=== PATIENT | male | born 1950 | race Caucasian/White ===

== ENCOUNTER 2020-11-26 22:32 | Inpatient (IN) | payer MEDICAID ==
[~2020-11-26] VITALS: Ht 180.3 cm; Wt 71.0 kg
[~2020-11-26 22:32] MED LIST: AMOX1TAB15 PO; ASPI-611 PO; HYDR-3964 PO; HYDR25TA4 PO; LEVO750T46 PO; LISI20TA28 PO; POTA10CA44 PO; SIMV20TA PO; VANC125C5 PO
[2020-11-26] MEDS ORDERED: normal saline 1000ML IV soln IVB ONE (23:10)
[2020-11-26 23:25] LABS: BASOPHILS # (AUTO) 0.1 X10'3 (0-0.2); BASOPHILS % (AUTO) 0.6 % (0-1); EOSINOPHILS # (AUTO) 0.1 X10'3 (0-0.9); EOSINOPHILS % (AUTO) 0.6 % (0-6); MONOCYTES # (AUTO) 1.4 X10'3 (0-0.9); RED CELL DISTRIBUTION WIDTH 14.4 % (11.5-14.5)
[2020-11-26 23:26] LABS: HEMATOCRIT 31.7 % (42.0-52.0); HEMOGLOBIN 10.2 g/dl (14.0-17.9); LYMPHOCYTES # (AUTO) 2.5 X10'3 (1.1-4.8); LYMPHOCYTES % (AUTO) 13.1 % (21-51); MEAN CORPUSCULAR HEMOGLOBIN 28.3 PG (27.0-31.0); MEAN CORPUSCULAR HGB CONC 32.3 g/dL (33.0-36.5); MEAN CORPUSCULAR VOLUME 87.7 FL (78-98); MEAN PLATELET VOLUME 7.8 FL (7.4-10.4); MONOCYTES % (AUTO) 7.2 % (2-12); NEUTROPHILS # (AUTO) 14.8 X10'3 (1.8-7.7); NEUTROPHILS % (AUTO) 78.5 % (42-75); PLATELET COUNT 606 X10'3 (140-440); RED BLOOD COUNT 3.61 X10'6 (4.70-6.10); WHITE BLOOD COUNT 18.8 X10'3 (4.5-11.0)
[2020-11-26] MEDS ORDERED: magnesium hydroxide 30ml (MOM) UD suspension PO PRN (23:40)
[2020-11-26] MEDS ORDERED: ondansetron/PF 4mg/2ml inj IV PRN (23:40)
[2020-11-26] MEDS ORDERED: acetaminophen 325mg tablet PO PRN (23:40)
[2020-11-26] MEDS ORDERED: mag hydrox/Alum hydrox/simeth 30ml oral suspension PO PRN (23:40)
[2020-11-27] MEDS ORDERED: diphenhydrAMINE 50 mg/ml inj IV PRN (00:50)
[2020-11-27] MEDS ORDERED: ondansetron 4mg rapidly disintigrating tab PO PRN (00:50)
[2020-11-27] MEDS ORDERED: morphine 2 MG/ML inj. syringe IV PRN ×2 (00:50)
[2020-11-27] MEDS ORDERED: bisacodyl 10mg suppository rectal RC PRN (00:50)
[2020-11-27] MEDS ORDERED: mag hydrox/Alum hydrox/simeth 30ml oral suspension PO PRN (00:50)
[2020-11-27] MEDS ORDERED: diphenhydrAMINE 25mg capsule PO PRN (00:50)
[2020-11-27] MEDS ORDERED: magnesium hydroxide 30ml (MOM) UD suspension PO PRN (00:50)
[2020-11-27] MEDS ORDERED: acetaminophen 650mg rectal suppository RC PRN (00:50)
[2020-11-27] MEDS ORDERED: ondansetron/PF 4mg/2ml inj IV PRN (00:50)
[2020-11-27] MEDS ORDERED: acetaminophen 325mg tablet PO PRN ×2 (00:50)
[2020-11-27] MEDS ORDERED: normal saline 1000ML IV soln IVB ONE (01:05)
[2020-11-27] MEDS ORDERED: morphine 2 MG/ML inj. syringe IV ONE (01:05)
--- NOTE | 2020-11-27 01:09 | NUR ---
PT COMPLAINED OF NAUSEA, GIVEN ZOFRAN. UPON REASSESSING PT HE WAS SCREAMING "NURSE! NURSE!", PT STATES HE HAS SUDDEN PAIN IN CHEST FROM STERNUM TO MID-CLAVICULAR, RADIATING TO BACK BILATERALLY. DR. GOODWIN CALLED AND FILLED IN ON PT COMPLAINT AND ON PT CONDITION. EKG PERFORMED AND SHOWED TO ED PT BLOOD DRAWN AND SENT TO LAB, VERBAL ORDER FOR NITRO, MORPHINE AND FLUIDS PUT IN FROM DR. GOODWIN.
--- NOTE | 2020-11-27 01:26 | NUR ---
PT CP CONTINUES GIVEN .4 SL NITRO AT 0117. PAIN AT 7/10 UPON GIVING. BP 156/76 GIVEN .4 SL NITRO AT 0122. PAIN AT 3/10 WHEN GIVEN BP 116/67 PT PAIN LEVEL AT 0 AT 0127. NO MORE NITRO GIVEN BP 124/79 STARTED 1L NS BOLUS
[2020-11-27 01:29] LABS: PARTIAL THROMBOPLASTIN TIME 37 SECONDS (22-32)
[2020-11-27] MEDS: normal saline 1000ml 1,000 ML IV SCH ×3 (01:29→20:00)
[2020-11-27] MEDS: nitroGLYCERIN 0.4mg SUBLingual tab SL PRN ×2 (01:29→01:35)
[2020-11-27 01:37] LABS: MAGNESIUM 1.4 MG/DL (1.5-2.4); PHOSPHORUS 3.7 MG/DL (2.3-4.5); TROPONIN I < 0.04 NG/ML (0.0-0.05)
--- NOTE | 2020-11-27 01:43 | NUR ---
PT STATES NO LONGER IN PAIN
[2020-11-27 02:43] VITALS: BP 132/67
[2020-11-27] MEDS ORDERED: magnesium Cl slow-release 64mg tablet PO PRN (02:45)
[2020-11-27] MEDS ORDERED: potassium Cl 20 mEq SR tablet PO PRN ×2 (02:45)
[2020-11-27] MEDS ORDERED: magnesium 4gm in 100ml NS 100 ML IV PRN (02:45)
[2020-11-27] MEDS ORDERED: potassium Cl 40MEQ/1/2NS 520ml 520 ML IV PRN (02:45)
[2020-11-27 03:03] LABS: POTASSIUM 4.6 MMOL/L (3.5-5.1)
[2020-11-27 06:00] VITALS: BP 115/64
--- NOTE | 2020-11-27 06:14 | NUR ---
OK TO GIVE INFORMATION TO SISTER JAE [phone]
--- NOTE | 2020-11-27 06:18 | NUR ---
Patient in room PCU 3010. I have received report from MIN Zuñiga and had the opportunity to ask questions and assume patient care.
--- NOTE | 2020-11-27 06:21 | NUR ---
Patient in room PCU 3010. I have received report from MIN Zuñiga and had the opportunity to ask questions and assume patient care.
--- NOTE | 2020-11-27 07:50 | NUR ---
Paged Maxx carrillo trop PAGER ID: [phone] MESSAGE: Re Monty Block 3010; 6 hour trop level 0.22 up from <0.04 at 0100. [facility] Beba [phone]
[2020-11-27] MEDS ORDERED: AMOX1TAB15 PO (07:59)
[2020-11-27] MEDS ORDERED: LEVO500T89 PO (07:59)
[2020-11-27] MEDS: docusate sod 100mg capsule PO SCH ×2 (08:00→20:00)
[2020-11-27] MEDS ORDERED: piperacillin/tazo 4.5gm/100ml 100 ML IV SCH (08:00)
[2020-11-27] MEDS: nitroGLYCERIN 0.1mg/hour patch TD SCH (08:11)
[2020-11-27] MEDS: pantoprazole 40 MG vial IV SCH (08:11)
[2020-11-27] MEDS: metoprolol tartrate 25mg tablet PO SCH (08:13)
[2020-11-27] MEDS: heparin, porcine 5000 units/ml vial SQ SCH ×2 (08:22→20:14)
[2020-11-27] MEDS: K and/or MAG REPLACEMENT MC SCH ×2 (08:28→20:00)
[2020-11-27 09:38] LABS: ANION GAP 12 (8-16); BLOOD UREA NITROGEN 32 MG/DL (7-18); BUN/CREATININE RATIO 4.9 (5.4-32.0); CALCIUM 7.6 MG/DL (8.5-10.1); CHLORIDE 116 MMOL/L (99-107); CREATININE 6.57 MG/DL (0.60-1.10); GLUCOSE 102 MG/DL (70-104); POTASSIUM 5.4 MMOL/L (3.5-5.1); SODIUM 147 MMOL/L (135-145); TOTAL CARBON DIOXIDE 18.8 MMOL/L (24-32); eGFR 8 ML/MIN
--- NOTE | 2020-11-27 10:10 | NUR ---
D/C Trop Troponins discontinued per Dr. Lilly
[2020-11-27 11:00] VITALS: BP 123/63
[2020-11-27 11:29] LABS: CLARITY,URINE SLIGHTLY CLOUDY (Clear); COLOR,URINE YELLOW (Yellow); GLUCOSE, URINE NEGATIVE (Neg); KETONES,URINE NEGATIVE (Neg); LEUKOCYTE ESTERASE ,URINE NEGATIVE (Neg); NITRITES, URINE NEGATIVE (Neg); OCCULT BLOOD,URINE NEGATIVE (Neg); PROTEIN,URINE 30 mg/dl (Neg); UROBILINOGEN,URINE 0.2 E.U/dL (0.2-1.0)
[2020-11-27 11:41] LABS: UA COLLECTION TYPE URINAL
[2020-11-27 11:42] LABS: HYALINE CASTS 0-3 /LPF (NEGATIVE); MUCUS STRANDS FEW /LPF (Neg); SQUAMOUS EPITHELIAL CELL,UR FEW /LPF (FEW)
[2020-11-27 11:43] LABS: BACTERIA,URINE 1+ /HPF (Neg); RBC,URINE 0-2 /HPF (0-2)
[2020-11-27 11:45] LABS: COARSE GRANULAR CAST 0-3 /LPF (NEGATIVE)
[2020-11-27 15:00] VITALS: BP 137/56
[2020-11-27 18:00] VITALS: BP 120/51
--- NOTE | 2020-11-27 18:05 | NUR ---
Patient in room PCU 3010. I have received report from Beatrice COPELAND and had the opportunity to ask questions and assume patient care.
--- NOTE | 2020-11-27 18:09 | NUR ---
Orientee documentation: I have reviewed and agree with all interventions, assessments performed and documented by MIN Yoder.
--- NOTE | 2020-11-27 18:29 | NUR ---
Problems reprioritized. Patient report given, questions answered & plan of care reviewed with MIN De Luna.
[2020-11-27] MEDS: lactobacillus rhamnosus 10,000 MMU CELLS/CAPSULE PO SCH (20:01)
[2020-11-27] MEDS: piperacillin/tazo 3.375gm/50ml 50 ML IV SCH (20:01)
--- NOTE | 2020-11-27 20:30 | NUR ---
Patient feeling isolated and anxious and concerned about his health. He reported he has not been sleeping well and is quite anxious. I spent 30 minutes with him discussing his concerns and offering encouragement. At one point he began to cry. I encouraged him to reach out to loved ones and to voice his concerns to the MD that rounds tomorrow. He mood improved by the time I left and he was grateful for the time spent listening.
[2020-11-27 22:00] VITALS: BP 135/55
[2020-11-27] MEDS: temazepam 15mg capsule PO PRN (22:40)
[2020-11-28 02:00] VITALS: BP 110/55
--- NOTE | 2020-11-28 04:19 | NUR ---
Patient was offered a sleep aid and enjoyed and restful night.
--- NOTE | 2020-11-28 06:06 | NUR ---
Problems reprioritized. Patient report given, questions answered & plan of care reviewed with Nydia COPELAND.
--- NOTE | 2020-11-28 06:32 | NUR ---
Patient in room PCU 3010. I have received report from Annamarie COPELAND and had the opportunity to ask questions and assume patient care.
[2020-11-28 07:00] VITALS: BP 108/56
[2020-11-28 07:06] LABS: BASOPHILS # (AUTO) 0.1 X10'3 (0-0.2); BASOPHILS % (AUTO) 0.4 % (0-1); EOSINOPHILS # (AUTO) 0.5 X10'3 (0-0.9); EOSINOPHILS % (AUTO) 4.4 % (0-6); HEMATOCRIT 25.9 % (42.0-52.0); HEMOGLOBIN 8.4 g/dl (14.0-17.9); LYMPHOCYTES # (AUTO) 1.4 X10'3 (1.1-4.8); MEAN CORPUSCULAR HGB CONC 32.5 g/dL (33.0-36.5); MEAN CORPUSCULAR VOLUME 89.2 FL (78-98); MEAN PLATELET VOLUME 7.5 FL (7.4-10.4); MONOCYTES # (AUTO) 0.9 X10'3 (0-0.9); MONOCYTES % (AUTO) 7.5 % (2-12); NEUTROPHILS # (AUTO) 9.4 X10'3 (1.8-7.7); NEUTROPHILS % (AUTO) 76.7 % (42-75); PLATELET COUNT 421 X10'3 (140-440); RED CELL DISTRIBUTION WIDTH 14.5 % (11.5-14.5); WHITE BLOOD COUNT 12.3 X10'3 (4.5-11.0)
[2020-11-28 07:37] LABS: ALANINE AMINOTRANSFERASE 30 U/L (12-78); ALBUMIN 1.7 G/DL (3.4-5.0); ALBUMIN/GLOBULIN RATIO 0.5 (1.1-1.5); ALKALINE PHOSPHATASE 205 IU/L (46-116); ANION GAP 16 (8-16); ASPARTATE AMINO TRANSFERASE 25 U/L (10-37); BILIRUBIN,TOTAL 0.4 MG/DL (0.1-1.0); BLOOD UREA NITROGEN 32 MG/DL (7-18); BUN/CREATININE RATIO 4.4 (5.4-32.0); CALCIUM 7.7 MG/DL (8.5-10.1); CHLORIDE 115 MMOL/L (99-107); CHOL/HDL RATIO 3.4 (0.00-4.99); CHOLESTEROL 112 MG/DL (0-200); CREATININE 7.34 MG/DL (0.60-1.10); GLUCOSE 87 MG/DL (70-104); HDL CHOLESTEROL 33 MG/DL (35-60); LDL CHOLESTEROL 56 MG/DL (50-100); MAGNESIUM 1.4 MG/DL (1.5-2.4); POTASSIUM 4.9 MMOL/L (3.5-5.1); SODIUM 147 MMOL/L (135-145); TOTAL CARBON DIOXIDE 16.3 MMOL/L (24-32); TOTAL PROTEIN 5.2 G/DL (6.4-8.2); TRIGLYCERIDES 135 MG/DL (20-135); eGFR 7 ML/MIN
[2020-11-28] MEDS: docusate sod 100mg capsule PO SCH (08:00)
[2020-11-28] MEDS: K and/or MAG REPLACEMENT MC SCH ×2 (08:00→19:36)
[2020-11-28] MEDS: metoprolol tartrate 25mg tablet PO SCH (08:22)
[2020-11-28] MEDS: piperacillin/tazo 3.375gm/50ml 50 ML IV SCH ×2 (08:22→19:34)
[2020-11-28] MEDS: pantoprazole 40 MG vial IV SCH (08:22)
[2020-11-28] MEDS: heparin, porcine 5000 units/ml vial SQ SCH ×2 (08:23→19:35)
[2020-11-28] MEDS: nitroGLYCERIN 0.1mg/hour patch TD SCH (08:24)
[2020-11-28] MEDS: HYDROcodone/acetaminophen 5mg/325mg tablet PO PRN ×2 (08:33→20:51)
[2020-11-28] MEDS: lactobacillus rhamnosus 10,000 MMU CELLS/CAPSULE PO SCH ×2 (08:37→19:35)
--- NOTE | 2020-11-28 09:05 | NUR ---
Dr. Lilly at bedside with nurse and patient. MD was made aware of Tele being DCD and would like to continue the Tele. Tele 10 applied to pt, New orders to have a wound consult, DC stool softeners. We will continue to monitor.
--- NOTE | 2020-11-28 09:27 | NUR ---
Malnutrition consult: Pt reports 24-33 lb wt loss with decreased appetite per malnutrition risk screen with RN. Pt recently discharged from [facility] 11/21 and had a bed scaled weight of 73.4 kg (taken 11/20), current bed scaled wt is 82 kg. No apparent wt loss however unlikely that pt +8.6 kg in 6 days. Pt initially with poor PO intake at prior admit while on liquid diet however once diet was advanced to solid food pt with 75-100% PO intake from 11/12-11/21. Pt currently on a regular diet and eating well with 100% PO intake first two meals down to 50% PO intake at third meal. Pt with no documented edema or decrease in muscle strength. Pt currently lacks a minimum of two criteria for malnutrition. Will continue to follow. Addendum: 11/28/20 at [address] Amended: Links added.
--- NOTE | 2020-11-28 09:52 | NUR ---
Md aware of Pt MANAGER INDUSTRIAL and trop levels. No new orders at this time. We will continue to monitor.
[2020-11-28 11:00] VITALS: BP 105/51
[2020-11-28] MEDS ORDERED: vancomycin 250MG/10ML UD oral solution 10ML BOTTLE PO SCH (14:09)
[2020-11-28 15:00] VITALS: BP 116/57
[2020-11-28 15:35] LABS: TOTAL PROTEIN,URINE RANDOM 49.1 MG/DL
[2020-11-28 15:44] LABS: CLARITY,URINE SLIGHTLY CLOUDY (Clear); COLOR,URINE STRAW (Yellow); GLUCOSE, URINE NEGATIVE (Neg); KETONES,URINE NEGATIVE (Neg); LEUKOCYTE ESTERASE ,URINE NEGATIVE (Neg); NITRITES, URINE NEGATIVE (Neg); OCCULT BLOOD,URINE TRACE-INTACT (Neg); PROTEIN,URINE TRACE mg/dl (Neg); UROBILINOGEN,URINE 0.2 E.U/dL (0.2-1.0)
[2020-11-28 15:53] LABS: UA COLLECTION TYPE NON-SPECIFIED
[2020-11-28 15:54] LABS: RBC,URINE 0-2 /HPF (0-2); WBC,URINE 0-4 /HPF (0-4)
[2020-11-28 15:59] LABS: BACTERIA,URINE NONE SEEN /HPF (Neg); SQUAMOUS EPITHELIAL CELL,UR NONE SEEN /LPF (FEW)
[2020-11-28] MEDS: normal saline 1000ml 1,000 ML IV SCH ×2 (16:50→19:35)
[2020-11-28 17:46] LABS: UA EOSINOPHILS FEW EOS /HPF
[2020-11-28 18:00] VITALS: BP 113/55
--- NOTE | 2020-11-28 18:05 | NUR ---
Patient in room PCU 3010. I have received report from Nydia COPELAND and had the opportunity to ask questions and assume patient care.
--- NOTE | 2020-11-28 18:26 | NUR ---
Patient in room PCU 3010. I have received report from MIN Stafford and had the opportunity to ask questions and assume patient care.
--- NOTE | 2020-11-28 18:29 | NUR ---
Problems reprioritized. Patient report given, questions answered & plan of care reviewed with Annamarie COPELAND.
[2020-11-28] MEDS: vancomycin 125mg/5ml ORAL solution 5ml UD bottle PO SCH (19:33)
[2020-11-28] MEDS: famotidine/PF 10 mg/ml inj IV SCH (19:34)
[2020-11-28 22:00] VITALS: BP 122/55
--- NOTE | 2020-11-28 22:06 | NUR ---
Patient reporting difficulty coping with his current illness, frustration about length of illness, his weight loss, isolation, CDiff, lack of taste and issues that seem to keep developing. He expressed feeling depressed and that things are not looking better for him and he reported "wanting to jump out of the window" during his previous hospitalization a couple weeks ago. He reported he does not feel suicidal at this time but is "low". He also stated that he does not want to take "psychoactive" drugs to treat his "bad attitude". I will put in social sciences department chair consult.
[2020-11-29] MEDS: vancomycin 125mg/5ml ORAL solution 5ml UD bottle PO SCH ×4 (01:25→23:36)
[2020-11-29 02:00] VITALS: BP 116/57
[2020-11-29] MEDS: normal saline 1000ml 1,000 ML IV SCH (02:50)
[2020-11-29 06:00] VITALS: BP 127/60
--- NOTE | 2020-11-29 06:08 | NUR ---
Patient in room PCU 3010. I have received report from Beatrice and had the opportunity to ask questions and assume patient care.
--- NOTE | 2020-11-29 06:10 | NUR ---
Orientee documentation: I have reviewed and agree with all interventions, assessments performed and documented by Rosario COPELAND
--- NOTE | 2020-11-29 06:10 | NUR ---
Problems reprioritized. Patient report given, questions answered & plan of care reviewed with MIN Barron.
--- NOTE | 2020-11-29 06:21 | NUR ---
Patient in room PCU 3010. I have received report from MIN Ponce and MIN De Luna and had the opportunity to ask questions and assume patient care.
[2020-11-29 07:30] LABS: BASOPHILS # (AUTO) 0.1 X10'3 (0-0.2); BASOPHILS % (AUTO) 0.9 % (0-1); EOSINOPHILS # (AUTO) 0.6 X10'3 (0-0.9); HEMATOCRIT 25.3 % (42.0-52.0); HEMOGLOBIN 8.2 g/dl (14.0-17.9); LYMPHOCYTES # (AUTO) 1.9 X10'3 (1.1-4.8); LYMPHOCYTES % (AUTO) 17.4 % (21-51); MEAN CORPUSCULAR HEMOGLOBIN 29.2 PG (27.0-31.0); MEAN CORPUSCULAR HGB CONC 32.5 g/dL (33.0-36.5); MEAN CORPUSCULAR VOLUME 89.8 FL (78-98); MEAN PLATELET VOLUME 8.1 FL (7.4-10.4); MONOCYTES # (AUTO) 0.8 X10'3 (0-0.9); MONOCYTES % (AUTO) 7.7 % (2-12); NEUTROPHILS # (AUTO) 7.3 X10'3 (1.8-7.7); PLATELET COUNT 355 X10'3 (140-440); RED BLOOD COUNT 2.81 X10'6 (4.70-6.10); RED CELL DISTRIBUTION WIDTH 14.8 % (11.5-14.5); WHITE BLOOD COUNT 10.7 X10'3 (4.5-11.0)
[2020-11-29 07:40] LABS: ALANINE AMINOTRANSFERASE 27 U/L (12-78); ALBUMIN 1.6 G/DL (3.4-5.0); ALBUMIN/GLOBULIN RATIO 0.5 (1.1-1.5); ALKALINE PHOSPHATASE 173 IU/L (46-116); ANION GAP 15 (8-16); ASPARTATE AMINO TRANSFERASE 19 U/L (10-37); BILIRUBIN,TOTAL 0.3 MG/DL (0.1-1.0); BLOOD UREA NITROGEN 35 MG/DL (7-18); BUN/CREATININE RATIO 4.3 (5.4-32.0); CALCIUM 7.5 MG/DL (8.5-10.1); CHLORIDE 116 MMOL/L (99-107); CREATININE 8.05 MG/DL (0.60-1.10); GLUCOSE 78 MG/DL (70-104); POTASSIUM 4.8 MMOL/L (3.5-5.1); SODIUM 145 MMOL/L (135-145); TOTAL PROTEIN 5.1 G/DL (6.4-8.2); eGFR 7 ML/MIN
[2020-11-29 07:41] LABS: TOTAL CARBON DIOXIDE 14.4 MMOL/L (24-32)
[2020-11-29] MEDS: K and/or MAG REPLACEMENT MC SCH ×2 (08:00→20:00)
--- NOTE | 2020-11-29 08:03 | NUR ---
Received critical CO2 value of 14.4. Notified Dr. Lilly via page: PAGER ID: [phone] MESSAGE: Kavon Kimble 3010 CRIT CO2 14.4. Any orders? Beatrice [phone]
[2020-11-29] MEDS: HYDROcodone/acetaminophen 5mg/325mg tablet PO PRN ×2 (08:25→19:59)
[2020-11-29] MEDS: lactobacillus rhamnosus 10,000 MMU CELLS/CAPSULE PO SCH ×2 (08:26→23:38)
[2020-11-29] MEDS: metoprolol tartrate 25mg tablet PO SCH (08:26)
[2020-11-29] MEDS: piperacillin/tazo 3.375gm/50ml 50 ML IV SCH ×2 (08:27→23:36)
[2020-11-29] MEDS: nitroGLYCERIN 0.1mg/hour patch TD SCH (08:27)
[2020-11-29] MEDS: heparin, porcine 5000 units/ml vial SQ SCH ×2 (08:28→23:26)
[2020-11-29] MEDS: famotidine/PF 10 mg/ml inj IV SCH ×2 (08:28→23:28)
--- NOTE | 2020-11-29 08:49 | NUR ---
Sent message to pharmacy Please send Bicarb Fluids for pt. Thank you Nydia
[2020-11-29] MEDS: sodium bicarbonate (8.4%) inj. 150 MEQ in dextrose 5%-water 1,000 ML IV SCH ×2 (09:15→23:51)
[2020-11-29] MEDS ORDERED: heparin 1,000 units/ml 10ml inj IV ONE (09:30)
[2020-11-29] MEDS ORDERED: albumin (human) 25% 100ml IV 100 ML IV PRN (09:30)
[2020-11-29] MEDS ORDERED: heparin 1,000unit/ml 10ml vial 10 ML IV ONE (09:30)
[2020-11-29] MEDS ORDERED: EPOETIN ALFA-EPBX 20,000 UNIT/ML 1 ML MDV IV ONE (09:30)
[2020-11-29] MEDS ORDERED: heparin 1,000 units/ml 10ml inj HE ONE ×2 (09:35)
[2020-11-29 11:00] VITALS: BP 131/57
[2020-11-29] MEDS: JUVEN Smoothie Arginine/Glut./Ca2+Bmb (Juven 19.3pkt) 240ml cup PO SCH ×2 (13:15→18:00)
--- NOTE | 2020-11-29 13:51 | NUR ---
Problems reprioritized. Patient report given, questions answered & plan of care reviewed with MIN Bartholomew.
--- NOTE | 2020-11-29 14:17 | NUR ---
Wound care consult: Per [facility] notes pt with a full thickness healing surgical abdominal wound with a small open area. Pt currently on a regular diet with average 75-100% PO intake however down to 25% PO intake x 2 most recent meals. Pt to start receiving Marcello smoothie to assist with wound healing per [facility] RN. Will continue to follow closely and monitor need for further nutrition intervention. Addendum: 11/29/20 at [address] Amended: Links added.
[2020-11-29] MEDS ORDERED: LIDOcaine 1%/PF 5ML 10 MG/ML VIAL ONE (17:23)
[2020-11-29] MEDS ORDERED: heparin 1,000unit/ml 10ml vial 10 ML ONE (17:51)
[2020-11-29 18:00] VITALS: BP 132/56
--- NOTE | 2020-11-29 18:00 | NUR ---
Patient in room PCU 3010. I have received report from Latrice and had the opportunity to ask questions and assume patient care.
--- NOTE | 2020-11-29 19:19 | NUR ---
pT IN ROOM WITH DIALYSIS AFTER CATHETER PLACEMENT, WILL BE 2 1//2 HRS.
[2020-11-29 22:00] VITALS: BP 123/69
[2020-11-30] VITALS (7 sets, daily range): BP systolic 119–144; BP diastolic 55–63
[2020-11-30] MEDS: vancomycin 125mg/5ml ORAL solution 5ml UD bottle PO SCH ×4 (03:14→20:41)
--- NOTE | 2020-11-30 06:21 | NUR ---
Problems reprioritized. Patient report given, questions answered & plan of care reviewed with Agata-MIN.
[2020-11-30] MEDS: K and/or MAG REPLACEMENT MC SCH ×2 (08:00→20:00)
[2020-11-30] MEDS: sodium bicarbonate (8.4%) inj. 150 MEQ in dextrose 5%-water 1,000 ML IV SCH (08:32)
[2020-11-30] MEDS: nitroGLYCERIN 0.1mg/hour patch TD SCH (08:33)
[2020-11-30] MEDS: famotidine/PF 10 mg/ml inj IV SCH (08:35)
[2020-11-30] MEDS: lactobacillus rhamnosus 10,000 MMU CELLS/CAPSULE PO SCH ×2 (08:35→20:41)
[2020-11-30] MEDS: metoprolol tartrate 25mg tablet PO SCH (08:35)
[2020-11-30] MEDS: piperacillin/tazo 3.375gm/50ml 50 ML IV SCH ×2 (08:35→20:40)
[2020-11-30] MEDS: heparin, porcine 5000 units/ml vial SQ SCH ×2 (08:36→20:41)
[2020-11-30] MEDS: JUVEN Smoothie Arginine/Glut./Ca2+Bmb (Juven 19.3pkt) 240ml cup PO SCH ×3 (08:36→18:00)
[2020-11-30 09:55] LABS: BASOPHILS # (AUTO) 0.1 X10'3 (0-0.2); BASOPHILS % (AUTO) 0.8 % (0-1); EOSINOPHILS # (AUTO) 0.3 X10'3 (0-0.9); EOSINOPHILS % (AUTO) 2.6 % (0-6); HEMOGLOBIN 7.9 g/dl (14.0-17.9); LYMPHOCYTES # (AUTO) 1.7 X10'3 (1.1-4.8); LYMPHOCYTES % (AUTO) 12.5 % (21-51); MEAN CORPUSCULAR HEMOGLOBIN 28.4 PG (27.0-31.0); MEAN CORPUSCULAR HGB CONC 32.8 g/dL (33.0-36.5); MEAN CORPUSCULAR VOLUME 86.6 FL (78-98); MEAN PLATELET VOLUME 7.9 FL (7.4-10.4); MONOCYTES # (AUTO) 0.8 X10'3 (0-0.9); NEUTROPHILS # (AUTO) 10.5 X10'3 (1.8-7.7); NEUTROPHILS % (AUTO) 78.1 % (42-75); PLATELET COUNT 299 X10'3 (140-440); RED BLOOD COUNT 2.78 X10'6 (4.70-6.10); RED CELL DISTRIBUTION WIDTH 14.6 % (11.5-14.5); WHITE BLOOD COUNT 13.5 X10'3 (4.5-11.0)
[2020-11-30 10:05] LABS: ALANINE AMINOTRANSFERASE 20 U/L (12-78); ALBUMIN 1.6 G/DL (3.4-5.0); ALBUMIN/GLOBULIN RATIO 0.5 (1.1-1.5); ALKALINE PHOSPHATASE 158 IU/L (46-116); ANION GAP 10 (8-16); ASPARTATE AMINO TRANSFERASE 20 U/L (10-37); BILIRUBIN,TOTAL 0.3 MG/DL (0.1-1.0); BLOOD UREA NITROGEN 22 MG/DL (7-18); BUN/CREATININE RATIO 3.8 (5.4-32.0); CHLORIDE 108 MMOL/L (99-107); CREATININE 5.74 MG/DL (0.60-1.10); GLUCOSE 110 MG/DL (70-104); POTASSIUM 3.8 MMOL/L (3.5-5.1); SODIUM 145 MMOL/L (135-145); TOTAL CARBON DIOXIDE 26.6 MMOL/L (24-32); TOTAL PROTEIN 4.9 G/DL (6.4-8.2); eGFR 10 ML/MIN
[2020-11-30] MEDS ORDERED: EPOETIN ALFA-EPBX 20,000 UNIT/ML 1 ML MDV SQ ONE (10:35)
[2020-11-30 11:24] LABS: FERRITIN 489 NG/ML (26-388)
[2020-11-30 11:27] LABS: % IRON SATURATION 26 % (11-46); IRON 39 UG/DL (53-167); TOTAL IRON BINDING CAPACITY 149 UG/DL (259-388)
--- NOTE | 2020-11-30 18:15 | NUR ---
Patient in room PCU 3010. I have received report from MIN Hill and had the opportunity to ask questions and assume patient care.
[2020-11-30] MEDS: famotidine 20mg tablet PO SCH (20:42)
[2020-12-01 02:00] VITALS: BP 130/59
[2020-12-01] MEDS: vancomycin 125mg/5ml ORAL solution 5ml UD bottle PO SCH ×4 (02:18→20:02)
--- NOTE | 2020-12-01 06:30 | NUR ---
Problems reprioritized. Patient report given, questions answered & plan of care reviewed with MIN Maldonado.
[2020-12-01 06:35] VITALS: BP 130/52
[2020-12-01 06:53] LABS: BASOPHILS # (AUTO) 0.1 X10'3 (0-0.2); BASOPHILS % (AUTO) 0.9 % (0-1); EOSINOPHILS # (AUTO) 0.5 X10'3 (0-0.9); EOSINOPHILS % (AUTO) 4.6 % (0-6); HEMATOCRIT 24.2 % (42.0-52.0); HEMOGLOBIN 8.1 g/dl (14.0-17.9); LYMPHOCYTES # (AUTO) 2.3 X10'3 (1.1-4.8); LYMPHOCYTES % (AUTO) 20.2 % (21-51); MEAN CORPUSCULAR HGB CONC 33.5 g/dL (33.0-36.5); MEAN CORPUSCULAR VOLUME 86.8 FL (78-98); MEAN PLATELET VOLUME 8.5 FL (7.4-10.4); MONOCYTES # (AUTO) 1.1 X10'3 (0-0.9); MONOCYTES % (AUTO) 9.8 % (2-12); NEUTROPHILS # (AUTO) 7.2 X10'3 (1.8-7.7); NEUTROPHILS % (AUTO) 64.5 % (42-75); PLATELET COUNT 258 X10'3 (140-440); RED BLOOD COUNT 2.79 X10'6 (4.70-6.10); RED CELL DISTRIBUTION WIDTH 14.6 % (11.5-14.5); WHITE BLOOD COUNT 11.2 X10'3 (4.5-11.0)
[2020-12-01 07:07] LABS: ALANINE AMINOTRANSFERASE 17 U/L (12-78); ALBUMIN 1.6 G/DL (3.4-5.0); ALBUMIN/GLOBULIN RATIO 0.5 (1.1-1.5); ALKALINE PHOSPHATASE 149 IU/L (46-116); ANION GAP 10 (8-16); ASPARTATE AMINO TRANSFERASE 16 U/L (10-37); BILIRUBIN,TOTAL 0.3 MG/DL (0.1-1.0); BLOOD UREA NITROGEN 29 MG/DL (7-18); BUN/CREATININE RATIO 4.5 (5.4-32.0); CALCIUM 7.2 MG/DL (8.5-10.1); CHLORIDE 108 MMOL/L (99-107); CREATININE 6.43 MG/DL (0.60-1.10); GLUCOSE 88 MG/DL (70-104); POTASSIUM 3.6 MMOL/L (3.5-5.1); SODIUM 144 MMOL/L (135-145); TOTAL CARBON DIOXIDE 25.7 MMOL/L (24-32); eGFR 9 ML/MIN
[2020-12-01] MEDS: K and/or MAG REPLACEMENT MC SCH ×2 (08:00→20:00)
[2020-12-01] MEDS: JUVEN Smoothie Arginine/Glut./Ca2+Bmb (Juven 19.3pkt) 240ml cup PO SCH ×3 (08:00→18:00)
[2020-12-01] MEDS ORDERED: heparin 1,000unit/ml 10ml vial 10 ML IV ONE (10:00)
[2020-12-01] MEDS: metoprolol tartrate 25mg tablet PO SCH (10:02)
[2020-12-01] MEDS: famotidine 20mg tablet PO SCH ×2 (10:02→20:02)
[2020-12-01] MEDS: lactobacillus rhamnosus 10,000 MMU CELLS/CAPSULE PO SCH ×2 (10:02→20:02)
[2020-12-01] MEDS: piperacillin/tazo 3.375gm/50ml 50 ML IV SCH ×2 (10:03→20:03)
[2020-12-01] MEDS: nitroGLYCERIN 0.1mg/hour patch TD SCH (10:04)
[2020-12-01] MEDS: heparin, porcine 5000 units/ml vial SQ SCH ×2 (10:05→20:02)
[2020-12-01] MEDS ORDERED: heparin 1,000 units/ml 10ml inj HE ONE ×2 (10:05)
[2020-12-01 11:00] VITALS: BP 149/67
--- NOTE | 2020-12-01 14:03 | NUR ---
Initial: Pt admit DX [facility] w/ ATN s/p first HD yesterday, intra-abdominal abscess, c.diff, and metabolic acidosis per EMR. Noted pt has full thickness healing prior abdomen wound receiving marcello TIDWM per [facility] RN. PO fluctuates ~50-75% avg regular diet up to 100% at times w/ 75% avg Marcello smoothie TIDWM partially meeting needs. LBM 11/30. Noted Mg 1.4 11/28 last check; HAILEY d/w RN regarding recheck if MD Agreeable given HD and c.diff. Will continue to monitor for additional protein/kcal needs this admit. Rec: 1. continue regular diet per MD; encourage PO 2. Marcello smoothie TIDWM per WOC 3. bowel care per Rx; consider phos binder w/ meals on HD pending further serum Phos results 4. wts w/ HD Addendum: 12/01/20 at [address] Amended: Links added.
[2020-12-01] MEDS: HYDROcodone/acetaminophen 10/325mg tab PO PRN (14:22)
[2020-12-01 15:00] VITALS: BP 118/51
--- NOTE | 2020-12-01 15:30 | NUR ---
MEDICATED WITH ONE [facility]CO PRIOR TO DIALYSIS . PATIENT ENCOUNTERED PAIN IN LOWER BACK AT START OF TX; HOWEVER, C/O PAIN FLEETING.NOW RESTING QUIETLY NO C/O DIALYSIS CONTINUES. HOB UP CALL LIGHT IN REACH. Addendum: 12/01/20 at 1842 by Hedy Max RN Amended: Links added.
[2020-12-01 18:00] VITALS: BP 104/59
--- NOTE | 2020-12-01 18:05 | NUR ---
Patient in room PCU 3010. I have received report from MIN Gonzalez and had the opportunity to ask questions and assume patient care.
[2020-12-01 22:00] VITALS: BP 129/66
[2020-12-02 02:00] VITALS: BP_SYST 133; BP_SYST 96; BP_DIAS 65; BP_DIAS 66
[2020-12-02] MEDS: vancomycin 125mg/5ml ORAL solution 5ml UD bottle PO SCH ×4 (02:12→19:45)
[2020-12-02 06:00] VITALS: BP 149/67
--- NOTE | 2020-12-02 06:20 | NUR ---
Patient in room PCU 3010. I have received report from bill hinson and had the opportunity to ask questions and assume patient care.
--- NOTE | 2020-12-02 06:23 | NUR ---
Problems reprioritized. Patient report given, questions answered & plan of care reviewed with MIN Deshpande.
[2020-12-02 06:42] LABS: BASOPHILS # (AUTO) 0.1 X10'3 (0-0.2); BASOPHILS % (AUTO) 1.3 % (0-1); EOSINOPHILS # (AUTO) 0.5 X10'3 (0-0.9); EOSINOPHILS % (AUTO) 4.4 % (0-6); HEMATOCRIT 26.1 % (42.0-52.0); HEMOGLOBIN 8.8 g/dl (14.0-17.9); LYMPHOCYTES # (AUTO) 2.6 X10'3 (1.1-4.8); LYMPHOCYTES % (AUTO) 23.3 % (21-51); MEAN CORPUSCULAR HEMOGLOBIN 29.2 PG (27.0-31.0); MEAN CORPUSCULAR HGB CONC 33.8 g/dL (33.0-36.5); MEAN CORPUSCULAR VOLUME 86.4 FL (78-98); MEAN PLATELET VOLUME 8.3 FL (7.4-10.4); NEUTROPHILS # (AUTO) 6.8 X10'3 (1.8-7.7); PLATELET COUNT 247 X10'3 (140-440); RED BLOOD COUNT 3.02 X10'6 (4.70-6.10); RED CELL DISTRIBUTION WIDTH 14.6 % (11.5-14.5)
[2020-12-02 07:05] LABS: ALANINE AMINOTRANSFERASE 19 U/L (12-78); ALBUMIN 1.7 G/DL (3.4-5.0); ALBUMIN/GLOBULIN RATIO 0.5 (1.1-1.5); ALKALINE PHOSPHATASE 154 IU/L (46-116); ANION GAP 9 (8-16); ASPARTATE AMINO TRANSFERASE 22 U/L (10-37); BILIRUBIN,TOTAL 0.3 MG/DL (0.1-1.0); BLOOD UREA NITROGEN 18 MG/DL (7-18); BUN/CREATININE RATIO 3.6 (5.4-32.0); CALCIUM 7.2 MG/DL (8.5-10.1); CHLORIDE 106 MMOL/L (99-107); CREATININE 4.96 MG/DL (0.60-1.10); GLUCOSE 84 MG/DL (70-104); POTASSIUM 3.7 MMOL/L (3.5-5.1); SODIUM 142 MMOL/L (135-145); TOTAL CARBON DIOXIDE 27.2 MMOL/L (24-32); TOTAL PROTEIN 5.3 G/DL (6.4-8.2); eGFR 12 ML/MIN
[2020-12-02] MEDS: K and/or MAG REPLACEMENT MC SCH ×2 (08:00→20:00)
[2020-12-02] MEDS: nitroGLYCERIN 0.1mg/hour patch TD SCH (08:00)
[2020-12-02] MEDS: lactobacillus rhamnosus 10,000 MMU CELLS/CAPSULE PO SCH ×2 (08:40→19:45)
[2020-12-02] MEDS: piperacillin/tazo 3.375gm/50ml 50 ML IV SCH ×2 (08:40→19:46)
[2020-12-02] MEDS: famotidine 20mg tablet PO SCH ×2 (08:40→19:45)
[2020-12-02] MEDS: metoprolol tartrate 25mg tablet PO SCH (08:42)
[2020-12-02] MEDS: JUVEN Smoothie Arginine/Glut./Ca2+Bmb (Juven 19.3pkt) 240ml cup PO SCH ×3 (08:42→18:53)
[2020-12-02] MEDS: heparin, porcine 5000 units/ml vial SQ SCH ×2 (08:51→19:46)
[2020-12-02 11:00] VITALS: BP 135/62
[2020-12-02 15:00] VITALS: BP 130/60
[2020-12-02 18:00] VITALS: BP 147/64
--- NOTE | 2020-12-02 18:27 | NUR ---
Problems reprioritized. Patient report given, questions answered & plan of care reviewed with bill hacth.
--- NOTE | 2020-12-02 18:30 | NUR ---
Patient in room PCU 3010. I have received report from MIN Deshpande and had the opportunity to ask questions and assume patient care. Patient in no apparent distress, eating pizza. I will continue to monitor.
[2020-12-02 22:00] VITALS: BP 157/60
[2020-12-03 02:00] VITALS: BP 150/64
[2020-12-03] MEDS: vancomycin 125mg/5ml ORAL solution 5ml UD bottle PO SCH ×4 (02:07→20:40)
[2020-12-03 06:00] VITALS: BP 135/60
--- NOTE | 2020-12-03 06:20 | NUR ---
Problems reprioritized. Patient report given, questions answered & plan of care reviewed with MIN Cruz.
[2020-12-03] MEDS ORDERED: heparin 1,000 units/ml 10ml inj HE ONE (08:00)
[2020-12-03] MEDS ORDERED: albumin (human) 25% 100ml IV 100 ML IV PRN (08:00)
[2020-12-03] MEDS ORDERED: heparin 1,000 units/ml 10ml inj IV ONE (08:00)
[2020-12-03] MEDS: K and/or MAG REPLACEMENT MC SCH ×2 (08:00→20:00)
[2020-12-03] MEDS: metoprolol tartrate 25mg tablet PO SCH (08:00)
[2020-12-03] MEDS ORDERED: heparin 1,000unit/ml 10ml vial 10 ML IV ONE (08:00)
[2020-12-03] MEDS: lactobacillus rhamnosus 10,000 MMU CELLS/CAPSULE PO SCH ×2 (08:00→20:40)
[2020-12-03] MEDS: heparin, porcine 5000 units/ml vial SQ SCH ×2 (08:00→20:42)
[2020-12-03] MEDS: nitroGLYCERIN 0.1mg/hour patch TD SCH (08:00)
[2020-12-03] MEDS: JUVEN Smoothie Arginine/Glut./Ca2+Bmb (Juven 19.3pkt) 240ml cup PO SCH ×4 (08:00→21:06)
[2020-12-03] MEDS: famotidine 20mg tablet PO SCH ×2 (08:00→20:40)
[2020-12-03] MEDS: piperacillin/tazo 3.375gm/50ml 50 ML IV SCH ×2 (08:00→20:41)
[2020-12-03] MEDS ORDERED: EPOETIN ALFA-EPBX 20,000 UNIT/ML 1 ML MDV IV ONE (08:00)
[2020-12-03] MEDS: heparin 1,000 units/ml 10ml inj HE ONE ×2 (10:05→13:51)
[2020-12-03] MEDS: HYDROcodone/acetaminophen 10/325mg tab PO PRN (10:10)
[2020-12-03 10:47] LABS: ALBUMIN 1.7 G/DL (3.4-5.0); ANION GAP 13 (8-16); BLOOD UREA NITROGEN 24 MG/DL (7-18); BUN/CREATININE RATIO 4.3 (5.4-32.0); CALCIUM 7.3 MG/DL (8.5-10.1); CHLORIDE 109 MMOL/L (99-107); CREATININE 5.56 MG/DL (0.60-1.10); GLUCOSE 107 MG/DL (70-104); POTASSIUM 3.8 MMOL/L (3.5-5.1); SODIUM 148 MMOL/L (135-145); TOTAL CARBON DIOXIDE 25.9 MMOL/L (24-32); eGFR 10 ML/MIN
[2020-12-03 11:00] VITALS: BP 116/59
[2020-12-03 11:43] LABS: BASOPHILS # (AUTO) 0.1 X10'3 (0-0.2); BASOPHILS % (AUTO) 0.7 % (0-1); EOSINOPHILS # (AUTO) 0.2 X10'3 (0-0.9); EOSINOPHILS % (AUTO) 1.2 % (0-6); HEMATOCRIT 27.5 % (42.0-52.0); HEMOGLOBIN 9.1 g/dl (14.0-17.9); LYMPHOCYTES # (AUTO) 1.3 X10'3 (1.1-4.8); LYMPHOCYTES % (AUTO) 7.2 % (21-51); MEAN CORPUSCULAR HEMOGLOBIN 28.6 PG (27.0-31.0); MEAN CORPUSCULAR VOLUME 86.5 FL (78-98); MONOCYTES # (AUTO) 0.9 X10'3 (0-0.9); MONOCYTES % (AUTO) 5.1 % (2-12); NEUTROPHILS # (AUTO) 15.6 X10'3 (1.8-7.7); NEUTROPHILS % (AUTO) 85.8 % (42-75); PLATELET COUNT 267 X10'3 (140-440); RED BLOOD COUNT 3.18 X10'6 (4.70-6.10); RED CELL DISTRIBUTION WIDTH 14.8 % (11.5-14.5); WHITE BLOOD COUNT 18.2 X10'3 (4.5-11.0)
[2020-12-03 15:00] VITALS: BP 91/71
[2020-12-03 18:00] VITALS: BP 159/69
[2020-12-03 22:00] VITALS: BP 166/78
[2020-12-04] MEDS: vancomycin 125mg/5ml ORAL solution 5ml UD bottle PO SCH ×4 (01:44→20:43)
[2020-12-04 02:00] VITALS: BP 159/71
[2020-12-04 06:00] VITALS: BP 153/58
[2020-12-04 07:15] LABS: BASOPHILS # (AUTO) 0.1 X10'3 (0-0.2); BASOPHILS % (AUTO) 1.4 % (0-1); EOSINOPHILS # (AUTO) 0.6 X10'3 (0-0.9); EOSINOPHILS % (AUTO) 5.5 % (0-6); HEMATOCRIT 28.6 % (42.0-52.0); HEMOGLOBIN 9.4 g/dl (14.0-17.9); LYMPHOCYTES # (AUTO) 2.6 X10'3 (1.1-4.8); MEAN CORPUSCULAR HEMOGLOBIN 28.7 PG (27.0-31.0); MEAN CORPUSCULAR VOLUME 86.9 FL (78-98); MEAN PLATELET VOLUME 8.8 FL (7.4-10.4); MONOCYTES # (AUTO) 1.2 X10'3 (0-0.9); MONOCYTES % (AUTO) 11.3 % (2-12); NEUTROPHILS % (AUTO) 56.8 % (42-75); PLATELET COUNT 246 X10'3 (140-440); RED BLOOD COUNT 3.29 X10'6 (4.70-6.10); WHITE BLOOD COUNT 10.5 X10'3 (4.5-11.0)
[2020-12-04] MEDS: piperacillin/tazo 3.375gm/50ml 50 ML IV SCH ×2 (07:17→20:43)
[2020-12-04] MEDS: heparin, porcine 5000 units/ml vial SQ SCH ×2 (07:18→20:44)
[2020-12-04] MEDS: lactobacillus rhamnosus 10,000 MMU CELLS/CAPSULE PO SCH ×2 (07:18→20:43)
[2020-12-04] MEDS: famotidine 20mg tablet PO SCH ×2 (07:18→20:43)
[2020-12-04] MEDS: metoprolol tartrate 25mg tablet PO SCH (07:18)
[2020-12-04] MEDS: nitroGLYCERIN 0.1mg/hour patch TD SCH (07:22)
[2020-12-04 07:29] LABS: ALBUMIN 1.8 G/DL (3.4-5.0); ANION GAP 14 (8-16); BLOOD UREA NITROGEN 15 MG/DL (7-18); BUN/CREATININE RATIO 3.3 (5.4-32.0); CALCIUM 7.6 MG/DL (8.5-10.1); CHLORIDE 108 MMOL/L (99-107); CREATININE 4.54 MG/DL (0.60-1.10); GLUCOSE 87 MG/DL (70-104); SODIUM 146 MMOL/L (135-145); TOTAL CARBON DIOXIDE 24.5 MMOL/L (24-32); eGFR 13 ML/MIN
[2020-12-04] MEDS: K and/or MAG REPLACEMENT MC SCH ×2 (08:00→20:00)
[2020-12-04 11:00] VITALS: BP 135/67
[2020-12-04] MEDS: JUVEN Smoothie Arginine/Glut./Ca2+Bmb (Juven 19.3pkt) 240ml cup PO SCH ×2 (13:26→18:00)
[2020-12-04 15:00] VITALS: BP 145/67
[2020-12-04 18:00] VITALS: BP 145/67
[2020-12-04] MEDS: temazepam 15mg capsule PO PRN (21:35)
[2020-12-04 22:00] VITALS: BP 155/74
[2020-12-05] MEDS: vancomycin 125mg/5ml ORAL solution 5ml UD bottle PO SCH ×4 (00:59→20:38)
[2020-12-05 02:00] VITALS: BP 157/75
[2020-12-05 06:00] VITALS: BP 155/65
[2020-12-05] MEDS: piperacillin/tazo 3.375gm/50ml 50 ML IV SCH ×2 (07:35→20:37)
[2020-12-05] MEDS: famotidine 20mg tablet PO SCH ×2 (07:37→20:38)
[2020-12-05] MEDS: heparin, porcine 5000 units/ml vial SQ SCH ×2 (07:37→20:39)
[2020-12-05] MEDS: metoprolol tartrate 25mg tablet PO SCH (07:37)
[2020-12-05] MEDS: lactobacillus rhamnosus 10,000 MMU CELLS/CAPSULE PO SCH ×2 (07:37→20:39)
[2020-12-05] MEDS: nitroGLYCERIN 0.1mg/hour patch TD SCH (07:38)
[2020-12-05] MEDS ORDERED: heparin 1,000unit/ml 10ml vial 10 ML IV ONE (08:00)
[2020-12-05] MEDS ORDERED: EPOETIN ALFA-EPBX 20,000 UNIT/ML 1 ML MDV IV ONE (08:00)
[2020-12-05] MEDS: K and/or MAG REPLACEMENT MC SCH ×2 (08:00→20:00)
[2020-12-05] MEDS ORDERED: normal saline 1000ml 250 ML IV PRN (08:00)
[2020-12-05] MEDS ORDERED: heparin 1,000 units/ml 10ml inj HE ONE ×2 (08:00)
[2020-12-05] MEDS: HYDROcodone/acetaminophen 5mg/325mg tablet PO PRN (08:24)
[2020-12-05] MEDS: JUVEN Smoothie Arginine/Glut./Ca2+Bmb (Juven 19.3pkt) 240ml cup PO SCH ×3 (08:45→18:00)
[2020-12-05 11:00] VITALS: BP 120/68
[2020-12-05 15:00] VITALS: BP 146/62
[2020-12-05 18:00] VITALS: BP 155/72
[2020-12-05] MEDS: diatr meglu/diatrizoate 30ml oral sol.-(3 dose) bottle PO SCH (20:59)
[2020-12-05] MEDS: temazepam 15mg capsule PO PRN (21:26)
[2020-12-05 22:00] VITALS: BP 146/81
[2020-12-06 02:00] VITALS: BP 146/67
[2020-12-06] MEDS: vancomycin 125mg/5ml ORAL solution 5ml UD bottle PO SCH ×4 (02:23→20:30)
--- NOTE | 2020-12-06 06:06 | NUR ---
Patient in room PCU 3010. I have received report from Enrique COPELAND and had the opportunity to ask questions and assume patient care.
[2020-12-06 07:00] VITALS: BP 129/72
[2020-12-06] MEDS: diatr meglu/diatrizoate 30ml oral sol.-(3 dose) bottle PO SCH ×2 (07:41→21:00)
[2020-12-06] MEDS: piperacillin/tazo 3.375gm/50ml 50 ML IV SCH ×3 (07:46→20:30)
[2020-12-06] MEDS: nitroGLYCERIN 0.1mg/hour patch TD SCH (07:46)
[2020-12-06] MEDS: metoprolol tartrate 25mg tablet PO SCH (07:46)
[2020-12-06] MEDS: lactobacillus rhamnosus 10,000 MMU CELLS/CAPSULE PO SCH ×2 (07:46→20:28)
[2020-12-06] MEDS: heparin, porcine 5000 units/ml vial SQ SCH ×2 (07:47→20:29)
[2020-12-06] MEDS: famotidine 20mg tablet PO SCH ×2 (07:47→20:32)
[2020-12-06] MEDS: K and/or MAG REPLACEMENT MC SCH ×2 (08:00→20:00)
[2020-12-06] MEDS: JUVEN Smoothie Arginine/Glut./Ca2+Bmb (Juven 19.3pkt) 240ml cup PO SCH ×3 (08:00→18:00)
[2020-12-06 08:05] LABS: EOSINOPHILS # (AUTO) 0.5 X10'3 (0-0.9); EOSINOPHILS % (AUTO) 4.4 % (0-6); LYMPHOCYTES # (AUTO) 2.3 X10'3 (1.1-4.8); MEAN PLATELET VOLUME 8.4 FL (7.4-10.4); MONOCYTES # (AUTO) 1.2 X10'3 (0-0.9); RED BLOOD COUNT 3.28 X10'6 (4.70-6.10)
[2020-12-06 08:07] LABS: BASOPHILS # (AUTO) 0.2 X10'3 (0-0.2); BASOPHILS % (AUTO) 1.8 % (0-1); HEMATOCRIT 28.4 % (42.0-52.0); HEMOGLOBIN 9.4 g/dl (14.0-17.9); MEAN CORPUSCULAR HEMOGLOBIN 28.7 PG (27.0-31.0); MEAN CORPUSCULAR HGB CONC 33.1 g/dL (33.0-36.5); MEAN CORPUSCULAR VOLUME 86.7 FL (78-98); MONOCYTES % (AUTO) 11.6 % (2-12); NEUTROPHILS # (AUTO) 6.4 X10'3 (1.8-7.7); NEUTROPHILS % (AUTO) 60.2 % (42-75); PLATELET COUNT 258 X10'3 (140-440); RED CELL DISTRIBUTION WIDTH 14.9 % (11.5-14.5); WHITE BLOOD COUNT 10.7 X10'3 (4.5-11.0)
[2020-12-06 08:17] LABS: ALBUMIN 1.8 G/DL (3.4-5.0); ANION GAP 10 (8-16); BLOOD UREA NITROGEN 15 MG/DL (7-18); BUN/CREATININE RATIO 3.8 (5.4-32.0); CALCIUM 7.8 MG/DL (8.5-10.1); CHLORIDE 107 MMOL/L (99-107); CREATININE 3.93 MG/DL (0.60-1.10); GLUCOSE 82 MG/DL (70-104); POTASSIUM 4.1 MMOL/L (3.5-5.1); SODIUM 143 MMOL/L (135-145); TOTAL CARBON DIOXIDE 26.2 MMOL/L (24-32); eGFR 15 ML/MIN
--- NOTE | 2020-12-06 09:54 | NUR ---
Reassessment: Pt continues on HD. PO intake continues to improve with average 75-100% though mostly 100% since 12/02. Pt with mostly 100% PO intake of Marcello smoothie TID as well. Pt meeting estimated nutrient needs at this time. LBM 12/04. Pt reports stools are formed per MD note. No further nutrition intervention implemented at this time. Will continue to follow. Rec: 1. Continue regular diet per MD 2. Marcello smoothie TIDWM per WOC 3. Consider phos binder wtih meals on HD pending further serum Phos results 4. Bowel care per rx 5. Scaled weights with HD Addendum: 12/06/20 at [address] Amended: Links added.
--- NOTE | 2020-12-06 09:55 | NUR ---
Patient doen at CT in wheel chair.
--- NOTE | 2020-12-06 10:29 | NUR ---
Patient back in bed resting. CT complete and IV fluids running. Pt wanting to eat sadie
[2020-12-06 11:00] VITALS: BP 131/68
[2020-12-06 15:00] VITALS: BP 133/66
[2020-12-06 18:00] VITALS: BP 146/62
--- NOTE | 2020-12-06 18:02 | NUR ---
Problems reprioritized. Patient report given, questions answered & plan of care reviewed with Trenton khan.
--- NOTE | 2020-12-06 18:08 | NUR ---
Problems reprioritized. Patient report given, questions answered & plan of care reviewed with Rosario COPELAND.
--- NOTE | 2020-12-06 18:08 | NUR ---
Patient in room PCU 3010. I have received report from Amber. COPELAND and had the opportunity to ask questions and assume patient care.
[2020-12-06 22:00] VITALS: BP 147/71
[2020-12-07] MEDS: vancomycin 125mg/5ml ORAL solution 5ml UD bottle PO SCH ×4 (01:59→19:40)
[2020-12-07 02:00] VITALS: BP 133/57
--- NOTE | 2020-12-07 06:16 | NUR ---
Problems reprioritized. Patient report given, questions answered & plan of care reviewed with MIN Wagner.
--- NOTE | 2020-12-07 06:17 | NUR ---
Patient in room PCU 3010. I have received report from Rosario COPELAND and had the opportunity to ask questions and assume patient care.
[2020-12-07 07:00] VITALS: BP 133/57
[2020-12-07] MEDS: famotidine 20mg tablet PO SCH ×2 (07:58→19:41)
[2020-12-07] MEDS: metoprolol tartrate 25mg tablet PO SCH (07:58)
[2020-12-07] MEDS: nitroGLYCERIN 0.1mg/hour patch TD SCH (07:58)
[2020-12-07] MEDS: lactobacillus rhamnosus 10,000 MMU CELLS/CAPSULE PO SCH ×2 (07:58→19:41)
[2020-12-07] MEDS: piperacillin/tazo 3.375gm/50ml 50 ML IV SCH ×2 (07:59→19:40)
[2020-12-07] MEDS: heparin, porcine 5000 units/ml vial SQ SCH ×2 (07:59→19:42)
[2020-12-07] MEDS ORDERED: heparin 1,000unit/ml 10ml vial 10 ML IV ONE (08:00)
[2020-12-07] MEDS ORDERED: EPOETIN ALFA-EPBX 20,000 UNIT/ML 1 ML MDV IV ONE (08:00)
[2020-12-07] MEDS: JUVEN Smoothie Arginine/Glut./Ca2+Bmb (Juven 19.3pkt) 240ml cup PO SCH ×3 (08:00→18:00)
[2020-12-07] MEDS ORDERED: normal saline 1000ml 250 ML IV PRN (08:00)
[2020-12-07] MEDS: K and/or MAG REPLACEMENT MC SCH ×2 (08:00→19:48)
[2020-12-07] MEDS ORDERED: heparin 1,000 units/ml 10ml inj HE ONE ×2 (08:00)
[2020-12-07] MEDS: HYDROcodone/acetaminophen 10/325mg tab PO PRN ×2 (10:13→16:23)
[2020-12-07 11:00] VITALS: BP 108/59
[2020-12-07 11:17] LABS: ALANINE AMINOTRANSFERASE 20 U/L (12-78); ALBUMIN 1.9 G/DL (3.4-5.0); ALBUMIN/GLOBULIN RATIO 0.5 (1.1-1.5); ALKALINE PHOSPHATASE 163 IU/L (46-116); ANION GAP 10 (8-16); ASPARTATE AMINO TRANSFERASE 14 U/L (10-37); BILIRUBIN,TOTAL 0.3 MG/DL (0.1-1.0); BLOOD UREA NITROGEN 21 MG/DL (7-18); BUN/CREATININE RATIO 4.1 (5.4-32.0); CALCIUM 7.8 MG/DL (8.5-10.1); CHLORIDE 108 MMOL/L (99-107); CREATININE 5.17 MG/DL (0.60-1.10); GLUCOSE 126 MG/DL (70-104); POTASSIUM 4.2 MMOL/L (3.5-5.1); SODIUM 143 MMOL/L (135-145); TOTAL CARBON DIOXIDE 24.8 MMOL/L (24-32); TOTAL PROTEIN 5.9 G/DL (6.4-8.2); eGFR 11 ML/MIN
[2020-12-07 11:19] LABS: BASOPHILS # (AUTO) 0.1 X10'3 (0-0.2); EOSINOPHILS # (AUTO) 0.4 X10'3 (0-0.9); EOSINOPHILS % (AUTO) 4.2 % (0-6); HEMATOCRIT 28.6 % (42.0-52.0); HEMOGLOBIN 9.4 g/dl (14.0-17.9); LYMPHOCYTES % (AUTO) 19.8 % (21-51); MEAN CORPUSCULAR HEMOGLOBIN 28.7 PG (27.0-31.0); MEAN CORPUSCULAR HGB CONC 32.9 g/dL (33.0-36.5); MEAN CORPUSCULAR VOLUME 87.2 FL (78-98); MEAN PLATELET VOLUME 8.4 FL (7.4-10.4); MONOCYTES # (AUTO) 1.2 X10'3 (0-0.9); MONOCYTES % (AUTO) 11.6 % (2-12); NEUTROPHILS # (AUTO) 6.4 X10'3 (1.8-7.7); NEUTROPHILS % (AUTO) 63.4 % (42-75); PLATELET COUNT 290 X10'3 (140-440); RED BLOOD COUNT 3.28 X10'6 (4.70-6.10); RED CELL DISTRIBUTION WIDTH 14.9 % (11.5-14.5); WHITE BLOOD COUNT 10.1 X10'3 (4.5-11.0)
--- NOTE | 2020-12-07 11:33 | NUR ---
Dr. Moreland at bedside with patient and nurse. New order is a 24hr urine collection, TDC placement wednesday per urine collection and then home. Consent for TDC is in front chart for wednesday. Pt was talked to and understands what was being said.We will continue to monitor.
[2020-12-07 15:00] VITALS: BP 100/62
[2020-12-07 18:00] VITALS: BP 142/62
--- NOTE | 2020-12-07 18:08 | NUR ---
Patient in room PCU 3010. I have received report from MIN Wagner and had the opportunity to ask questions and assume patient care.
--- NOTE | 2020-12-07 18:08 | NUR ---
Problems reprioritized. Patient report given, questions answered & plan of care reviewed with Rosario COPELAND.
[2020-12-07 22:00] VITALS: BP 138/57
[2020-12-08] MEDS: vancomycin 125mg/5ml ORAL solution 5ml UD bottle PO SCH ×4 (01:52→20:10)
[2020-12-08 02:00] VITALS: BP 134/59
[2020-12-08 06:00] VITALS: BP 123/60
--- NOTE | 2020-12-08 06:38 | NUR ---
Problems reprioritized. Patient report given, questions answered & plan of care reviewed with MIN Deshpande.
[2020-12-08 06:58] LABS: BASOPHILS # (AUTO) 0.1 X10'3 (0-0.2); BASOPHILS % (AUTO) 1.3 % (0-1); EOSINOPHILS # (AUTO) 0.5 X10'3 (0-0.9); EOSINOPHILS % (AUTO) 5.6 % (0-6); HEMATOCRIT 29.3 % (42.0-52.0); HEMOGLOBIN 9.6 g/dl (14.0-17.9); LYMPHOCYTES # (AUTO) 2.3 X10'3 (1.1-4.8); LYMPHOCYTES % (AUTO) 27.4 % (21-51); MEAN CORPUSCULAR HEMOGLOBIN 28.7 PG (27.0-31.0); MEAN CORPUSCULAR HGB CONC 32.8 g/dL (33.0-36.5); MEAN CORPUSCULAR VOLUME 87.4 FL (78-98); MEAN PLATELET VOLUME 8.4 FL (7.4-10.4); MONOCYTES # (AUTO) 0.9 X10'3 (0-0.9); MONOCYTES % (AUTO) 10.8 % (2-12); NEUTROPHILS # (AUTO) 4.6 X10'3 (1.8-7.7); NEUTROPHILS % (AUTO) 54.9 % (42-75); PLATELET COUNT 281 X10'3 (140-440); RED BLOOD COUNT 3.35 X10'6 (4.70-6.10); RED CELL DISTRIBUTION WIDTH 15.2 % (11.5-14.5); WHITE BLOOD COUNT 8.4 X10'3 (4.5-11.0)
[2020-12-08 07:17] LABS: ALANINE AMINOTRANSFERASE 21 U/L (12-78); ALBUMIN 1.8 G/DL (3.4-5.0); ALBUMIN/GLOBULIN RATIO 0.4 (1.1-1.5); ALKALINE PHOSPHATASE 151 IU/L (46-116); ANION GAP 9 (8-16); ASPARTATE AMINO TRANSFERASE 20 U/L (10-37); BILIRUBIN,TOTAL 0.3 MG/DL (0.1-1.0); BLOOD UREA NITROGEN 11 MG/DL (7-18); BUN/CREATININE RATIO 3.1 (5.4-32.0); CHLORIDE 105 MMOL/L (99-107); CREATININE 3.59 MG/DL (0.60-1.10); GLUCOSE 89 MG/DL (70-104); MAGNESIUM 1.6 MG/DL (1.5-2.4); PHOSPHORUS 3.6 MG/DL (2.3-4.5); POTASSIUM 4.1 MMOL/L (3.5-5.1); SODIUM 141 MMOL/L (135-145); TOTAL CARBON DIOXIDE 26.8 MMOL/L (24-32); TOTAL PROTEIN 5.9 G/DL (6.4-8.2); eGFR 17 ML/MIN
[2020-12-08] MEDS: K and/or MAG REPLACEMENT MC SCH ×2 (08:00→19:54)
[2020-12-08] MEDS: JUVEN Smoothie Arginine/Glut./Ca2+Bmb (Juven 19.3pkt) 240ml cup PO SCH ×3 (08:00→18:00)
[2020-12-08] MEDS: heparin, porcine 5000 units/ml vial SQ SCH ×2 (08:00→20:10)
[2020-12-08] MEDS: nitroGLYCERIN 0.1mg/hour patch TD SCH (08:00)
[2020-12-08] MEDS: piperacillin/tazo 3.375gm/50ml 50 ML IV SCH ×2 (09:20→20:10)
[2020-12-08] MEDS: famotidine 20mg tablet PO SCH ×2 (09:21→20:10)
[2020-12-08] MEDS: lactobacillus rhamnosus 10,000 MMU CELLS/CAPSULE PO SCH ×2 (09:21→20:18)
[2020-12-08] MEDS: metoprolol tartrate 25mg tablet PO SCH (09:25)
[2020-12-08 11:00] VITALS: BP 133/59
[2020-12-08 12:13] LABS: UREA NITROGEN 24HR,URINE 0.6 GM/24HR (7-20)
[2020-12-08 14:48] LABS: HBSAG SCREEN Negative (Negative); HEP B CORE AB, TOT Negative (Negative)
[2020-12-08] MEDS ORDERED: EPOETIN ALFA-EPBX 20,000 UNIT/ML 1 ML MDV IV ONE (14:55)
[2020-12-08] MEDS ORDERED: normal saline 1000ml 250 ML IV PRN (14:55)
[2020-12-08] MEDS ORDERED: normal saline 1000ml 100 ML IV PRN (14:55)
[2020-12-08 15:00] VITALS: BP 128/60
[2020-12-08] MEDS ORDERED: heparin 1,000 units/ml 10ml inj HE ONE (15:00)
[2020-12-08 18:00] VITALS: BP 161/52
--- NOTE | 2020-12-08 18:20 | NUR ---
Problems reprioritized. Patient report given, questions answered & plan of care reviewed with MIN WAGNER.
--- NOTE | 2020-12-08 18:24 | NUR ---
Patient in room PCU 3010. I have received report from froilan khan and had the opportunity to ask questions and assume patient care.
[2020-12-08 22:00] VITALS: BP 119/60
--- NOTE | 2020-12-08 22:11 | NUR ---
would care on abdominal site was completed at 2100
--- NOTE | 2020-12-08 22:11 | NUR ---
wound care was completed at 2100
[2020-12-08] MEDS: HYDROcodone/acetaminophen 10/325mg tab PO PRN (23:27)
--- NOTE | 2020-12-09 00:43 | NUR ---
had urinal by patient to keep track of voids, pt kept forgetting about using the urinal but let rn know how many times he voided
[2020-12-09 02:00] VITALS: BP 103/50
[2020-12-09] MEDS: vancomycin 125mg/5ml ORAL solution 5ml UD bottle PO SCH ×3 (02:22→14:00)
--- NOTE | 2020-12-09 06:20 | NUR ---
Patient in room PCU 3010. I have received report from bill byrd and had the opportunity to ask questions and assume patient care.
--- NOTE | 2020-12-09 06:20 | NUR ---
Problems reprioritized. Patient report given, questions answered & plan of care reviewed with Charlee COPELAND.
[2020-12-09 07:27] LABS: BASOPHILS # (AUTO) 0.1 X10'3 (0-0.2); BASOPHILS % (AUTO) 1.1 % (0-1); EOSINOPHILS # (AUTO) 0.6 X10'3 (0-0.9); HEMATOCRIT 27.7 % (42.0-52.0); HEMOGLOBIN 9.1 g/dl (14.0-17.9); LYMPHOCYTES # (AUTO) 1.9 X10'3 (1.1-4.8); LYMPHOCYTES % (AUTO) 20.5 % (21-51); MEAN CORPUSCULAR VOLUME 87.8 FL (78-98); MEAN PLATELET VOLUME 8.3 FL (7.4-10.4); MONOCYTES % (AUTO) 11.2 % (2-12); NEUTROPHILS # (AUTO) 5.7 X10'3 (1.8-7.7); NEUTROPHILS % (AUTO) 61.2 % (42-75); PLATELET COUNT 292 X10'3 (140-440); RED BLOOD COUNT 3.16 X10'6 (4.70-6.10); RED CELL DISTRIBUTION WIDTH 15.9 % (11.5-14.5); WHITE BLOOD COUNT 9.4 X10'3 (4.5-11.0)
[2020-12-09] MEDS: K and/or MAG REPLACEMENT MC SCH (08:00)
[2020-12-09] MEDS: heparin, porcine 5000 units/ml vial SQ SCH (08:00)
[2020-12-09] MEDS: piperacillin/tazo 3.375gm/50ml 50 ML IV SCH (08:00)
[2020-12-09] MEDS: JUVEN Smoothie Arginine/Glut./Ca2+Bmb (Juven 19.3pkt) 240ml cup PO SCH (08:00)
[2020-12-09] MEDS: nitroGLYCERIN 0.1mg/hour patch TD SCH (08:00)
[2020-12-09 08:10] LABS: ALANINE AMINOTRANSFERASE 26 U/L (12-78); ALBUMIN 1.8 G/DL (3.4-5.0); ALBUMIN/GLOBULIN RATIO 0.5 (1.1-1.5); ALKALINE PHOSPHATASE 142 IU/L (46-116); ANION GAP 10 (8-16); ASPARTATE AMINO TRANSFERASE 17 U/L (10-37); BILIRUBIN,TOTAL 0.3 MG/DL (0.1-1.0); BLOOD UREA NITROGEN 15 MG/DL (7-18); BUN/CREATININE RATIO 3.2 (5.4-32.0); CALCIUM 7.7 MG/DL (8.5-10.1); CHLORIDE 107 MMOL/L (99-107); CREATININE 4.65 MG/DL (0.60-1.10); GLUCOSE 82 MG/DL (70-104); MAGNESIUM 1.5 MG/DL (1.5-2.4); PHOSPHORUS 3.8 MG/DL (2.3-4.5); POTASSIUM 3.9 MMOL/L (3.5-5.1); SODIUM 142 MMOL/L (135-145); TOTAL CARBON DIOXIDE 25.5 MMOL/L (24-32); TOTAL PROTEIN 5.8 G/DL (6.4-8.2); eGFR 13 ML/MIN
[2020-12-09] MEDS: famotidine 20mg tablet PO SCH (08:22)
[2020-12-09] MEDS: lactobacillus rhamnosus 10,000 MMU CELLS/CAPSULE PO SCH (08:22)
[2020-12-09 08:29] VITALS: BP_SYST 140
[2020-12-09] MEDS: metoprolol tartrate 25mg tablet PO SCH (08:29)
[2020-12-09] MEDS ORDERED: heparin 1,000unit/ml 10ml vial 10 ML ONE (08:38)
[2020-12-09] MEDS ORDERED: fentaNYL/PF 50MCG/1 ML 2ML syringe ONE (08:38)
[2020-12-09] MEDS ORDERED: LIDOcaine 1%/PF 5ML 10 MG/ML VIAL ONE (08:38)
[2020-12-09] MEDS ORDERED: midazolam 1 mg/ML 2ml injection ONE (08:38)
[2020-12-09] MEDS: HYDROcodone/acetaminophen 10/325mg tab PO PRN (08:54)
[2020-12-09] MEDS ORDERED: heparin 1,000 units/ml 10ml inj HE ONE ×2 (12:00)
[2020-12-09] MEDS ORDERED: heparin 1,000unit/ml 10ml vial 10 ML IV ONE (12:00)
[2020-12-09] MEDS ORDERED: EPOETIN ALFA-EPBX 20,000 UNIT/ML 1 ML MDV IV ONE (12:00)
[2020-12-09] MEDS ORDERED: LACT1CAP26 PO (12:40)
[2020-12-09] MEDS ORDERED: FAMO20TA8 PO (12:40)
[2020-12-09] MEDS ORDERED: VANC250C12 PO ×2 (12:50)
--- NOTE | 2020-12-09 16:30 | NUR ---
reviewed all discharge instructions,including f/u with pmd,dr. fair and dialysis scheduled for 12/12 @3:30 @ [facility]. , directions and phone # provided. While confirming prescriptions with loy martinez, wi codi issue arose with cost of vanco po( 3,000) w/o preauthorization.Harmony ,with case management contacted,who contacted prescriber Dr. Fair who lowered dose from 250 to 125 po q6,which he felt was the reason for needing preauthorization. Harmony contacted loy martinez with change,dose changed on dc instructions.Bilat forearm S.L s dc'd both sites clear, pt dc'd home via w/c with all belongings
[2020-12-10] MEDS ORDERED: VANC125C11 PO (17:31)
--- NOTE | 2020-12-11 11:30 | NUR ---
CASE MANAGEMENT DISCHARGE FOLLOW UP: Spoke with pt via telephone. Reports that he's "still here," glad to be home, states still having diarrhea but that it is getting more solid; denies CP, SOB, fever/chills, s/sx of infection, N/V. Verbalizes understanding of s/sx requiring further evaluation/emergent assistance. 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 Verbalizes understanding of the importance in making/keeping follow-up appointments, pt thought his appointment for dialysis was today, informed pt that dialysis appt is scheduled for , 12/12 @ 1530, pt states that he thought today was , glad he doesn't have to go today, states that he will go to dialysis appointment tomorrow. In regards to hospitalization, pt states that he is happy with [facility], "you guys were pretty good." He does express frustration regarding the "long hours of doing nothing"/"23.5 hours in the bed," pt states that he lost 25 lbs during his hospitalization. Pt states that someone from home health called a few days ago, but he does not think he needs help currently, states that he is getting around pretty good on his own, then states that it probably is a good idea if someone comes out to check on him. States no further questions/concerns at this time, requests that this nurse call him again to see how he is doing.
== END 2020-12-09 16:30 | disposition home health service (06) | DRG 720 ==
LOC: ER 22:32 → ED HOLD 23:33 → UNDOADMIN 23:39 → PCU 3S 11-27 02:05 → ED HOLD 11-27 02:05
PROVIDERS: ADMIT Family Medicine; ATTEND Family Medicine
PROC: 05HY33Z Insertion of Infusion Device into Upper Vein, Percutaneous Approach (ICD-10-PCS; 2020-11-29)
PROC: B54MZZA Ultrasonography of Right Upper Extremity Veins, Guidance (ICD-10-PCS; 2020-11-29)
PROC: B51M1ZA Fluoroscopy of Right Upper Extremity Veins using Low Osmolar Contrast, Guidance (ICD-10-PCS; 2020-11-29)
PROC: 5A1D70Z Performance of Urinary Filtration, Intermittent, Less than 6 Hours Per Day (ICD-10-PCS; 2020-11-29)
PROC: 5A1D70Z Performance of Urinary Filtration, Intermittent, Less than 6 Hours Per Day (ICD-10-PCS; 2020-12-01)
PROC: 5A1D70Z Performance of Urinary Filtration, Intermittent, Less than 6 Hours Per Day (ICD-10-PCS; 2020-12-03)
PROC: 5A1D70Z Performance of Urinary Filtration, Intermittent, Less than 6 Hours Per Day (ICD-10-PCS; 2020-12-05)
PROC: 5A1D70Z Performance of Urinary Filtration, Intermittent, Less than 6 Hours Per Day (ICD-10-PCS; 2020-12-07)
PROC: 0JH63XZ Insertion of Tunneled Vascular Access Device into Chest Subcutaneous Tissue and Fascia, Percutaneous Approach (ICD-10-PCS; principal; 2020-12-09)
PROC: 02HV33Z Insertion of Infusion Device into Superior Vena Cava, Percutaneous Approach (ICD-10-PCS; 2020-12-09)
PROC: B548ZZA Ultrasonography of Superior Vena Cava, Guidance (ICD-10-PCS; 2020-12-09)
PROC: B5181ZA Fluoroscopy of Superior Vena Cava using Low Osmolar Contrast, Guidance (ICD-10-PCS; 2020-12-09)
PROC: 5A1D70Z Performance of Urinary Filtration, Intermittent, Less than 6 Hours Per Day (ICD-10-PCS; 2020-12-09)
DX: A41.9 Sepsis, unspecified organism (principal); N17.0 Acute kidney failure with tubular necrosis; K65.1 Peritoneal abscess; A04.72 Enterocolitis due to Clostridium difficile, not specified as recurrent; E87.2 Acidosis; N18.30 Chronic kidney disease, stage 3 unspecified; N17.9 Acute kidney failure, unspecified; I25.10 Atherosclerotic heart disease of native coronary artery without angina pectoris; E86.1 Hypovolemia; D64.9 Anemia, unspecified; E83.42 Hypomagnesemia; I12.9 Hypertensive chronic kidney disease with stage 1 through stage 4 chronic kidney disease, or unspecified chronic kidney disease; R07.9 Chest pain, unspecified; F41.9 Anxiety disorder, unspecified; I25.2 Old myocardial infarction; Z86.73 Personal history of transient ischemic attack (TIA), and cerebral infarction without residual deficits; Z87.891 Personal history of nicotine dependence; Z98.61 Coronary angioplasty status; Z99.2 Dependence on renal dialysis; Z79.899 Other long term (current) drug therapy; Z79.82 Long term (current) use of aspirin; Z90.49 Acquired absence of other specified parts of digestive tract
CPT/HCPCS: 36415; 36558; 36580; 74176; 76937; 80048; 80053; 80061; 81001; 82570; 82728; 82948; 83540; 83550; 83605; 83735; 83880; 84100; 84132; 84156; 84300; 84484; 84560; 85025; 85610; 85730; 86704; 86706; 87040; 87081; 87088; 87207; 87340; 90935; 93005; 97161; 97530; 99152; 99153; 99285; A9270; C1750; C1751; C1769; C1894; C9113; G0378; J1644; J2150; J2250; J2270; J2543; J3010; J3490; J7030; Q4081; Q9963

== ENCOUNTER 2021-08-12 15:00 | Inpatient (IN) | payer MEDICARE, MEDICAID ==
[~2021-08-12] VITALS: Ht 365.8 cm; Wt 58.3 kg
[~2021-08-12 15:00] MED LIST changes: -AMOX1TAB15 PO; +FAMO20TA8 PO; -HYDR-3964 PO; -HYDR25TA4 PO; +LACT1CAP26 PO; -LEVO750T46 PO; -LISI20TA28 PO; -POTA10CA44 PO; +VANC125C11 PO; -VANC125C5 PO
[2021-08-12 19:15] VITALS: BP 154/100
--- NOTE | 2021-08-12 20:04 | NUR ---
received call back from DR Alvarez will back in 15minutes
--- NOTE | 2021-08-12 20:04 | NUR ---
patient arrived to facilty from [facility] via [facility] with two attendants. Patient awake and alert oriented to name with confusion verbally responsive. BP 154/100 HR 150 R 20 temp 98.6 02 sat 98% on room air page call placed to DR Alvarez awaiting electronic masking system operator back.
[2021-08-12] MEDS ORDERED: potassium CL 10mEq/100ml bag 100 ML IV PRN (20:30)
[2021-08-12] MEDS ORDERED: magnesium 4gm in 100ml NS 100 ML IV PRN (20:30)
[2021-08-12] MEDS ORDERED: potassium Cl 20 mEq SR tablet PO PRN ×2 (20:30)
[2021-08-12] MEDS ORDERED: ondansetron/PF 4mg/2ml inj IV PRN (20:30)
[2021-08-12] MEDS ORDERED: magnesium Cl slow-release 64mg tablet PO PRN (20:30)
[2021-08-12] MEDS ORDERED: magnesium 2GM in 50ml NS 50 ML IV PRN (20:30)
[2021-08-12 21:32] LABS: POTASSIUM 5.2 MMOL/L (3.5-5.1)
--- NOTE | 2021-08-12 21:45 | NUR ---
EKG done DR Chaudhry made aware per no dialysis for tonight
[2021-08-12 22:00] VITALS: BP 164/98
[2021-08-12] MEDS ORDERED: metoprolol tartrate 1mg/ml inj IV ONE (22:10)
[2021-08-13 02:00] VITALS: BP 139/73
[2021-08-13] MEDS ORDERED: heparin 1,000unit/ml 10ml vial 10 ML IV ONE (05:40)
[2021-08-13] MEDS ORDERED: albumin (human) 25% 100ml IV 100 ML IV PRN (05:40)
[2021-08-13] MEDS ORDERED: heparin 1,000 units/ml 10ml inj IV ONE (05:40)
[2021-08-13] MEDS ORDERED: EPOETIN ALFA-EPBX 20,000 UNIT/ML 1 ML MDV IV ONE (05:40)
--- NOTE | 2021-08-13 06:00 | NUR ---
Patient in room PCU 3023. I have received report from Claudia COPELAND and had the opportunity to ask questions and assume patient care.
[2021-08-13 06:16] LABS: BASOPHILS # (AUTO) 0.1 X10'3 (0-0.2); BASOPHILS % (AUTO) 0.6 % (0-1); EOSINOPHILS % (AUTO) 0.3 % (0-6); HEMATOCRIT 36.1 % (42.0-52.0); HEMOGLOBIN 11.7 g/dl (14.0-17.9); LYMPHOCYTES # (AUTO) 1.2 X10'3 (1.1-4.8); LYMPHOCYTES % (AUTO) 10.5 % (21-51); MEAN CORPUSCULAR HEMOGLOBIN 29.5 PG (27.0-31.0); MEAN CORPUSCULAR HGB CONC 32.3 g/dL (33.0-36.5); MEAN CORPUSCULAR VOLUME 91.3 FL (78-98); MEAN PLATELET VOLUME 8.7 FL (7.4-10.4); MONOCYTES # (AUTO) 0.7 X10'3 (0-0.9); MONOCYTES % (AUTO) 6.2 % (2-12); NEUTROPHILS # (AUTO) 9.5 X10'3 (1.8-7.7); NEUTROPHILS % (AUTO) 82.4 % (42-75); PLATELET COUNT 271 X10'3 (140-440); RED BLOOD COUNT 3.96 X10'6 (4.70-6.10); WHITE BLOOD COUNT 11.5 X10'3 (4.5-11.0)
--- NOTE | 2021-08-13 06:32 | NUR ---
patient in bed awake and alert remained confused spoke with daughter unable to give patient med info report given to ongoing nurse to follow up.
[2021-08-13 06:40] LABS: ALBUMIN 3.1 G/DL (3.4-5.0); ANION GAP 17 (8-16); BLOOD UREA NITROGEN 49 MG/DL (7-18); BUN/CREATININE RATIO 5.9 (5.4-32.0); CALCIUM 7.7 MG/DL (8.5-10.1); CHLORIDE 107 MMOL/L (99-107); CREATININE 8.29 MG/DL (0.60-1.10); GLUCOSE 86 MG/DL (70-104); MAGNESIUM 2.1 MG/DL (1.5-2.4); POTASSIUM 5.5 MMOL/L (3.5-5.1); SODIUM 140 MMOL/L (135-145); TOTAL CARBON DIOXIDE 15.8 MMOL/L (24-32); eGFR 6 ML/MIN
[2021-08-13] MEDS: K and/or MAG REPLACEMENT MC SCH ×2 (08:00→20:00)
[2021-08-13] MEDS: sodium bicarbonate (8.4%) inj. 100 MEQ in dextrose 5%-water 1,000 ML IV SCH ×2 (08:30→19:34)
[2021-08-13] MEDS ORDERED: heparin 1,000 units/ml 10ml inj HE ONE ×2 (08:35)
[2021-08-13 11:00] VITALS: BP 98/55
--- NOTE | 2021-08-13 12:04 | NUR ---
Call out to Dr. Taylor MESSAGE: [id number], Monty Kimble. Pt. receiving dialysis with sodium bicarb replacement. breakfast host request to recheck Sodium Bicarb levels before initiating new order for IVF which includes sodium bicarb. Thanks! Opal @1365
--- NOTE | 2021-08-13 12:06 | NUR ---
Dr. Taylor returned page regarding IVF. OK to recheck Sodium bicarb levels when dialysis complete. WIll call MD with results.
[2021-08-13 13:42] LABS: ALANINE AMINOTRANSFERASE 22 U/L (12-78); ALBUMIN 3.4 G/DL (3.4-5.0); ALBUMIN/GLOBULIN RATIO 0.7 (1.1-1.5); ALKALINE PHOSPHATASE 185 IU/L (46-116); ANION GAP 13 (8-16); ASPARTATE AMINO TRANSFERASE 19 U/L (10-37); BILIRUBIN,TOTAL 0.9 MG/DL (0.1-1.0); BLOOD UREA NITROGEN 21 MG/DL (7-18); BUN/CREATININE RATIO 5.4 (5.4-32.0); CALCIUM 8.3 MG/DL (8.5-10.1); CHLORIDE 101 MMOL/L (99-107); CREATININE 3.87 MG/DL (0.60-1.10); GLUCOSE 86 MG/DL (70-104); POTASSIUM 3.5 MMOL/L (3.5-5.1); SODIUM 138 MMOL/L (135-145); TOTAL CARBON DIOXIDE 24.4 MMOL/L (24-32); TOTAL PROTEIN 8.1 G/DL (6.4-8.2); eGFR 15 ML/MIN
--- NOTE | 2021-08-13 14:03 | NUR ---
Paged Dr. Taylor regarding patient sodium bicarb and K+ level. And patient speaking word salad. PAGER ID: [phone] MESSAGE: [id number], Block Monty. Pts CO2 is 24.4, K came down to 3.5. Do you still want the sodium bicarb IV fluids? also, patient is speaking word salad now. Kristy [facility] [id number].
--- NOTE | 2021-08-13 14:14 | NUR ---
Paged Dr. Taylor regarding records of patients head CT PAGER ID: [phone] MESSAGE: [id number], Block Monty. Patient did have a head CT, records are in the chart. Kristy KIMBROUGH
[2021-08-13 15:00] VITALS: BP 160/78
--- NOTE | 2021-08-13 15:33 | NUR ---
Paged Dr. Taylor regarding neuro consult request. PAGER ID: [phone] MESSAGE: [id number], Lamin Monty. Neuro consult done, he wants a stat CT of the head and neck angiogram. Please advise. Kristy [facility] 3049.
[2021-08-13] MEDS ORDERED: iohexol 350MG/ML 100ml bottle IV ONE (16:51)
[2021-08-13] MEDS ORDERED: ceftazidime 1000mg in D5W 50ml 50 ML IV ONE (17:15)
[2021-08-13] MEDS ORDERED: VANCOMYCIN 1GM/200ML IVPB 200 ML IV ONE (17:36)
[2021-08-13] MEDS ORDERED: cefTAZidime inj. 1 GM in normal saline 100ml IV soln 100 ML IV ONE (17:40)
[2021-08-13] MEDS ORDERED: VANCOMYCIN 1GM/200ML IVPB 200 ML IV PRN (17:45)
[2021-08-13 18:00] VITALS: BP 169/90
[2021-08-13] MEDS ORDERED: aspirin 81mg, enteric-coated 1 TAB TABLET.DR PO ONE (18:10)
[2021-08-13] MEDS ORDERED: NO HOME MEDS (18:17)
--- NOTE | 2021-08-13 18:26 | NUR ---
Problems reprioritized. Patient report given, questions answered & plan of care reviewed with Amanda COPELAND regarding test results and plan of care.
[2021-08-13 22:00] VITALS: BP 141/82
[2021-08-14 02:00] VITALS: BP 157/90
[2021-08-14] MEDS: VANCOMYCIN LEVEL IV SCH (03:00)
[2021-08-14 06:00] VITALS: BP 134/67
--- NOTE | 2021-08-14 06:20 | NUR ---
Patient in room PCU 3023. I have received report from Amanda COPELAND and had the opportunity to ask questions and assume patient care.
[2021-08-14 06:22] LABS: BASOPHILS % (AUTO) 0.5 % (0-1); EOSINOPHILS # (AUTO) 0.1 X10'3 (0-0.9); EOSINOPHILS % (AUTO) 0.8 % (0-6); HEMATOCRIT 35.7 % (42.0-52.0); HEMOGLOBIN 11.7 g/dl (14.0-17.9); LYMPHOCYTES # (AUTO) 1.2 X10'3 (1.1-4.8); MEAN CORPUSCULAR HEMOGLOBIN 29.9 PG (27.0-31.0); MEAN CORPUSCULAR HGB CONC 32.7 g/dL (33.0-36.5); MEAN CORPUSCULAR VOLUME 91.4 FL (78-98); MEAN PLATELET VOLUME 8.7 FL (7.4-10.4); MONOCYTES # (AUTO) 0.9 X10'3 (0-0.9); MONOCYTES % (AUTO) 9.6 % (2-12); NEUTROPHILS # (AUTO) 7.2 X10'3 (1.8-7.7); NEUTROPHILS % (AUTO) 76.1 % (42-75); PLATELET COUNT 236 X10'3 (140-440); RED BLOOD COUNT 3.91 X10'6 (4.70-6.10); RED CELL DISTRIBUTION WIDTH 18.6 % (11.5-14.5); WHITE BLOOD COUNT 9.4 X10'3 (4.5-11.0)
[2021-08-14 06:49] LABS: ALBUMIN 3.1 G/DL (3.4-5.0); ANION GAP 16 (8-16); BLOOD UREA NITROGEN 39 MG/DL (7-18); BUN/CREATININE RATIO 6.1 (5.4-32.0); CALCIUM 7.8 MG/DL (8.5-10.1); CHLORIDE 100 MMOL/L (99-107); CHOL/HDL RATIO 3.9 (0.00-4.99); CHOLESTEROL 184 MG/DL (0-200); CREATININE 6.35 MG/DL (0.60-1.10); GLUCOSE 86 MG/DL (70-104); HDL CHOLESTEROL 47 MG/DL (35-60); LDL CHOLESTEROL 104 MG/DL (50-100); POTASSIUM 4.8 MMOL/L (3.5-5.1); SODIUM 136 MMOL/L (135-145); TRIGLYCERIDES 132 MG/DL (20-135); VANCOMYCIN,RANDOM 13.7 UG/ML; eGFR 9 ML/MIN
[2021-08-14 07:03] LABS: HEMOGLOBIN A1C 4.7 % (4.5-6.2)
--- NOTE | 2021-08-14 07:49 | NUR ---
PAGER ID: [phone] MESSAGE: [id number], Block Monty. Patient is trying to leave, he ripped out IV and tele. We are trying to get him to stay in the room. Can you come talk to him or call ALEJANDRO. Thanks. Kristy [facility] [phone].
[2021-08-14] MEDS: K and/or MAG REPLACEMENT MC SCH ×2 (08:00→20:00)
[2021-08-14] MEDS ORDERED: ziprasidone IM 20mg inj **IM only IM ONE ×2 (08:10→08:55)
[2021-08-14] MEDS: aspirin 81mg tab.chew PO SCH (08:30)
--- NOTE | 2021-08-14 11:45 | NUR ---
PAGER ID: [phone] MESSAGE: re: Monty Kimble. Room: 3023B. Pt becoming agitated again and refusing PO Ativan. Can we do IM Haldol? -[facility] #[id number] -Dr. Taylor paged concerning Pt's agitation
[2021-08-14] MEDS ORDERED: LORazepam 2 mg/ml vial IM ONE (11:50)
[2021-08-14] MEDS ORDERED: OLANZapine **IM** 10 mg inj. IM ONE (11:55)
--- NOTE | 2021-08-14 14:12 | NUR ---
Pt dressed himself thia morning, removed IV and tele-box and wanted to leave. Continued to state "I'm done and want to leave". Pt had a positive CT head scan for stroke. Pt was alert to self but confused and could not answer where he was, where he lived or how he would get home if he left AMA. Spoke with Pt's daughter Carmita, who lives in [place], and explained the situation to her. Pt's daughter stated that she wants him to stay put and not leave AMA because he has no local family to get him and he lives in [place]. Plus with Pt being confused he would have no way of getting home. Tried multiple times to reorient Pt multiple times to no avail. Pt tried walking off the floor, security was called to help escort Pt back to his room. An order of Geodon 10mg IM was ordered through Dr. Taylor, which was given to Pt. Pt became irritated again and trued to leave, security was called and Pt was escorted back to room. Order for Zyprexa 5mg IM was obtained from Dr. Maher as well as soft restraints for upper extremities from Dr. Taylor. Zyprexa administered and Pt put in restraints. Pt became calm and fell alseep and restraints were removed. Pt awoke 2 hours later irritated but was able to reorient Pt back to room where restraints were reapplied.
[2021-08-14 15:00] VITALS: BP 140/70
[2021-08-14] MEDS ORDERED: cefTAZidime inj. 1 GM in normal saline 100ml IV soln 100 ML IV PRN (16:00)
[2021-08-14] MEDS ORDERED: VANCOMYCIN 1GM/200ML IVPB 200 ML IV ONE (16:00)
[2021-08-14 18:00] VITALS: BP 163/88
--- NOTE | 2021-08-14 18:29 | NUR ---
Problems reprioritized. Patient report given, questions answered & plan of care reviewed with Katiana COPELAND, patient stable at transfer of care.
[2021-08-14 22:00] VITALS: BP 140/68
--- NOTE | 2021-08-14 22:16 | NUR ---
at 1800 patient in bed awake and alert oreinted to name bed in low position restraints to bilateral wrists in place will continue to monitor.
--- NOTE | 2021-08-14 22:18 | NUR ---
at 1900 went back to patient room noted patient not in his room restraints at bedside unnable to located patient code cheli called charge nurse aware.per security looking through cameras patient left facility at 1833. per security patient was found accross the street patient was accompanied back with security on the [facility] alet and cooperative call placed to DR Ambrocio made aware. patient in bed no behavior noted with sitter at bedside as per Md order.
--- NOTE | 2021-08-15 01:12 | NUR ---
patient in bed no restraints applied at this time sitter at bedside
[2021-08-15 02:00] VITALS: BP 143/69
[2021-08-15] MEDS: VANCOMYCIN LEVEL IV SCH (03:00)
[2021-08-15 06:00] VITALS: BP 126/80
[2021-08-15 06:31] LABS: BASOPHILS # (AUTO) 0.1 X10'3 (0-0.2); BASOPHILS % (AUTO) 0.8 % (0-1); EOSINOPHILS # (AUTO) 0.2 X10'3 (0-0.9); HEMATOCRIT 35.4 % (42.0-52.0); HEMOGLOBIN 11.6 g/dl (14.0-17.9); LYMPHOCYTES % (AUTO) 21.9 % (21-51); MEAN CORPUSCULAR HEMOGLOBIN 29.5 PG (27.0-31.0); MEAN CORPUSCULAR HGB CONC 32.6 g/dL (33.0-36.5); MEAN CORPUSCULAR VOLUME 90.4 FL (78-98); MEAN PLATELET VOLUME 8.7 FL (7.4-10.4); NEUTROPHILS # (AUTO) 5.8 X10'3 (1.8-7.7); NEUTROPHILS % (AUTO) 64.3 % (42-75); PLATELET COUNT 259 X10'3 (140-440); RED BLOOD COUNT 3.92 X10'6 (4.70-6.10); RED CELL DISTRIBUTION WIDTH 18.7 % (11.5-14.5)
--- NOTE | 2021-08-15 06:44 | NUR ---
Patient remained in bed with sitter at bedside no behavior during shift report given to ongoing nurse
[2021-08-15 07:19] LABS: PLATELET ESTIMATE NORMAL
[2021-08-15 07:20] LABS: ANISOCYTOSIS 2+; POIKILOCYTOSIS FEW; POLYCHROMASIA FEW
[2021-08-15 07:50] LABS: ALBUMIN 3.2 G/DL (3.4-5.0); ANION GAP 18 (8-16); BLOOD UREA NITROGEN 53 MG/DL (7-18); BUN/CREATININE RATIO 6.3 (5.4-32.0); CALCIUM 8.2 MG/DL (8.5-10.1); CHLORIDE 103 MMOL/L (99-107); CREATININE 8.42 MG/DL (0.60-1.10); GLUCOSE 78 MG/DL (70-104); MAGNESIUM 2.1 MG/DL (1.5-2.4); POTASSIUM 4.9 MMOL/L (3.5-5.1); SODIUM 140 MMOL/L (135-145); TOTAL CARBON DIOXIDE 19.1 MMOL/L (24-32); VANCOMYCIN,RANDOM 10.3 UG/ML; eGFR 6 ML/MIN
[2021-08-15] MEDS: K and/or MAG REPLACEMENT MC SCH ×2 (08:00→20:00)
[2021-08-15] MEDS: atorvastatin 20mg tablet PO SCH (08:04)
[2021-08-15] MEDS: aspirin 81mg tab.chew PO SCH (08:04)
[2021-08-15] MEDS ORDERED: heparin 1,000 units/ml 10ml inj IV ONE (08:20)
[2021-08-15] MEDS ORDERED: albumin (human) 25% 100ml IV 100 ML IV PRN (08:20)
[2021-08-15] MEDS ORDERED: heparin 1,000unit/ml 10ml vial 10 ML IV ONE (08:20)
[2021-08-15] MEDS ORDERED: heparin 1,000 units/ml 10ml inj HE ONE ×2 (09:10)
--- NOTE | 2021-08-15 10:20 | NUR ---
Spoke with pharmacist regarding vanc dose missed yesterday. Per pharmacy do not give today unless further instructed.
[2021-08-15 11:00] VITALS: BP 149/67
[2021-08-15 15:00] VITALS: BP 121/72
[2021-08-15] MEDS ORDERED: VANCOMYCIN 1GM/200ML IVPB 200 ML IV ONE (17:00)
[2021-08-15] MEDS ORDERED: cefTAZidime inj. 1 GM in normal saline 100ml IV soln 100 ML IV ONE (17:00)
[2021-08-15 18:00] VITALS: BP 127/64
[2021-08-15 22:00] VITALS: BP 129/67
[2021-08-16 02:00] VITALS: BP 129/66
[2021-08-16] MEDS: VANCOMYCIN LEVEL IV SCH (03:00)
[2021-08-16 05:58] LABS: BASOPHILS # (AUTO) 0.1 X10'3 (0-0.2); EOSINOPHILS # (AUTO) 0.2 X10'3 (0-0.9); EOSINOPHILS % (AUTO) 2.6 % (0-6); HEMATOCRIT 40.6 % (42.0-52.0); HEMOGLOBIN 13.2 g/dl (14.0-17.9); LYMPHOCYTES # (AUTO) 1.7 X10'3 (1.1-4.8); LYMPHOCYTES % (AUTO) 19.5 % (21-51); MEAN CORPUSCULAR HEMOGLOBIN 29.7 PG (27.0-31.0); MEAN CORPUSCULAR HGB CONC 32.6 g/dL (33.0-36.5); MEAN CORPUSCULAR VOLUME 91.1 FL (78-98); MEAN PLATELET VOLUME 8.8 FL (7.4-10.4); MONOCYTES # (AUTO) 0.9 X10'3 (0-0.9); MONOCYTES % (AUTO) 10.7 % (2-12); NEUTROPHILS # (AUTO) 5.6 X10'3 (1.8-7.7); NEUTROPHILS % (AUTO) 66.2 % (42-75); PLATELET COUNT 291 X10'3 (140-440); RED BLOOD COUNT 4.46 X10'6 (4.70-6.10); RED CELL DISTRIBUTION WIDTH 18.3 % (11.5-14.5); WHITE BLOOD COUNT 8.5 X10'3 (4.5-11.0)
[2021-08-16 06:00] VITALS: BP 139/63
[2021-08-16 06:23] LABS: ALBUMIN 3.6 G/DL (3.4-5.0); ANION GAP 17 (8-16); BLOOD UREA NITROGEN 41 MG/DL (7-18); BUN/CREATININE RATIO 5.5 (5.4-32.0); CALCIUM 8.6 MG/DL (8.5-10.1); CHLORIDE 101 MMOL/L (99-107); CREATININE 7.45 MG/DL (0.60-1.10); GLUCOSE 82 MG/DL (70-104); MAGNESIUM 2.3 MG/DL (1.5-2.4); POTASSIUM 4.7 MMOL/L (3.5-5.1); SODIUM 139 MMOL/L (135-145); TOTAL CARBON DIOXIDE 21.4 MMOL/L (24-32); VANCOMYCIN,RANDOM 26.5 UG/ML; eGFR 7 ML/MIN
[2021-08-16] MEDS: atorvastatin 20mg tablet PO SCH (08:49)
[2021-08-16] MEDS: aspirin 81mg tab.chew PO SCH (08:49)
[2021-08-16] MEDS: K and/or MAG REPLACEMENT MC SCH ×2 (08:49→20:00)
[2021-08-16 11:00] VITALS: BP 137/75
[2021-08-16 15:00] VITALS: BP 146/75
[2021-08-16 18:00] VITALS: BP 155/79
--- NOTE | 2021-08-16 18:35 | NUR ---
Problems reprioritized. Patient report given, questions answered & plan of care reviewed with MIN Anderson.
[2021-08-16] MEDS: LORazepam 1 MG tablet PO PRN (19:54)
[2021-08-16 22:00] VITALS: BP 135/78
[2021-08-17 02:00] VITALS: BP 128/77
--- NOTE | 2021-08-17 02:28 | NUR ---
Patient in bed sleeping no signs of distress or agitation noted, sitter at bedside will continue to monitor and report changes
[2021-08-17] MEDS: VANCOMYCIN LEVEL IV SCH (03:00)
[2021-08-17 04:09] LABS: ALBUMIN 3.5 G/DL (3.4-5.0); ANION GAP 21 (8-16); BLOOD UREA NITROGEN 56 MG/DL (7-18); BUN/CREATININE RATIO 5.9 (5.4-32.0); CALCIUM 8.3 MG/DL (8.5-10.1); CHLORIDE 100 MMOL/L (99-107); CREATININE 9.53 MG/DL (0.60-1.10); GLUCOSE 91 MG/DL (70-104); POTASSIUM 4.4 MMOL/L (3.5-5.1); SODIUM 141 MMOL/L (135-145); TOTAL CARBON DIOXIDE 19.7 MMOL/L (24-32); VANCOMYCIN,RANDOM 21.3 UG/ML; eGFR 5 ML/MIN
[2021-08-17 06:00] VITALS: BP 128/68
--- NOTE | 2021-08-17 06:27 | NUR ---
Problems reprioritized. Patient report given, questions answered & plan of care reviewed with Jayme COPELAND .
[2021-08-17 07:04] LABS: BASOPHILS # (AUTO) 0.1 X10'3 (0-0.2); BASOPHILS % (AUTO) 0.9 % (0-1); EOSINOPHILS # (AUTO) 0.3 X10'3 (0-0.9); EOSINOPHILS % (AUTO) 3.7 % (0-6); HEMATOCRIT 40.7 % (42.0-52.0); HEMOGLOBIN 13.2 g/dl (14.0-17.9); LYMPHOCYTES # (AUTO) 1.8 X10'3 (1.1-4.8); MEAN CORPUSCULAR HEMOGLOBIN 29.7 PG (27.0-31.0); MEAN CORPUSCULAR HGB CONC 32.4 g/dL (33.0-36.5); MEAN CORPUSCULAR VOLUME 91.8 FL (78-98); MEAN PLATELET VOLUME 8.6 FL (7.4-10.4); MONOCYTES % (AUTO) 11.3 % (2-12); NEUTROPHILS # (AUTO) 5.9 X10'3 (1.8-7.7); NEUTROPHILS % (AUTO) 64.1 % (42-75); PLATELET COUNT 294 X10'3 (140-440); RED BLOOD COUNT 4.43 X10'6 (4.70-6.10); RED CELL DISTRIBUTION WIDTH 18.3 % (11.5-14.5); WHITE BLOOD COUNT 9.2 X10'3 (4.5-11.0)
[2021-08-17] MEDS: K and/or MAG REPLACEMENT MC SCH ×2 (07:37→19:06)
[2021-08-17] MEDS: aspirin 81mg tab.chew PO SCH (07:38)
[2021-08-17] MEDS: atorvastatin 20mg tablet PO SCH (07:38)
--- NOTE | 2021-08-17 09:37 | NUR ---
Initial: Pt admitted w/ metabolic encephalopathy secondary to acute CVA, now with expressive and receptive aphasia, and ESRD on HD per EMR. Pt currently on Renal diet w/ low PO intake, avg 28% x 11 meals not meeting needs. Pt noted to be A&O x 1 and confused but independent w/ meals. Pt may benefit from Nepro TID to help meet nutritional needs. Recommend routine Phos checks given pt on HD if MD agreeable. LB 08/15. Will continue to monitor and make recommendations as appropriate. Recs: 1. Continue Renal diet as tolerated; assistance w/ meals 2. Nepro TID; pending MD verification 3. Routine phos checks as pt on HD 4. Bowel care per rx 5. Scaled wts w/ HD Addendum: 08/17/21 at [address] Amended: Links added.
[2021-08-17 11:00] VITALS: BP 142/76
[2021-08-17 15:00] VITALS: BP 156/80
[2021-08-17 18:00] VITALS: BP 165/82
[2021-08-17 22:00] VITALS: BP 136/86
[2021-08-18 02:00] VITALS: BP 129/63
[2021-08-18] MEDS: VANCOMYCIN LEVEL IV SCH (03:00)
[2021-08-18 06:00] VITALS: BP 136/76
[2021-08-18] MEDS: K and/or MAG REPLACEMENT MC SCH ×2 (08:00→20:00)
[2021-08-18] MEDS ORDERED: heparin 1,000unit/ml 10ml vial 10 ML IV ONE (08:20)
[2021-08-18] MEDS ORDERED: heparin 1,000 units/ml 10ml inj IV ONE (08:20)
[2021-08-18] MEDS ORDERED: albumin (human) 25% 100ml IV 100 ML IV PRN (08:20)
[2021-08-18] MEDS ORDERED: heparin 1,000 units/ml 10ml inj HE ONE ×2 (08:25)
[2021-08-18] MEDS: aspirin 81mg tab.chew PO SCH (08:54)
[2021-08-18] MEDS: atorvastatin 20mg tablet PO SCH (08:54)
[2021-08-18 09:40] LABS: BASOPHILS # (AUTO) 0.1 X10'3 (0-0.2); BASOPHILS % (AUTO) 0.7 % (0-1); EOSINOPHILS # (AUTO) 0.2 X10'3 (0-0.9); EOSINOPHILS % (AUTO) 2.2 % (0-6); HEMATOCRIT 38.8 % (42.0-52.0); HEMOGLOBIN 12.7 g/dl (14.0-17.9); LYMPHOCYTES # (AUTO) 1.1 X10'3 (1.1-4.8); LYMPHOCYTES % (AUTO) 10.9 % (21-51); MEAN CORPUSCULAR HEMOGLOBIN 29.5 PG (27.0-31.0); MEAN CORPUSCULAR HGB CONC 32.6 g/dL (33.0-36.5); MEAN CORPUSCULAR VOLUME 90.5 FL (78-98); MEAN PLATELET VOLUME 8.7 FL (7.4-10.4); MONOCYTES # (AUTO) 0.7 X10'3 (0-0.9); MONOCYTES % (AUTO) 6.8 % (2-12); NEUTROPHILS # (AUTO) 7.8 X10'3 (1.8-7.7); NEUTROPHILS % (AUTO) 79.4 % (42-75); PLATELET COUNT 299 X10'3 (140-440); RED BLOOD COUNT 4.29 X10'6 (4.70-6.10); WHITE BLOOD COUNT 9.9 X10'3 (4.5-11.0)
[2021-08-18 10:16] LABS: ALANINE AMINOTRANSFERASE 71 U/L (12-78); ALBUMIN 3.3 G/DL (3.4-5.0); ALBUMIN/GLOBULIN RATIO 0.8 (1.1-1.5); ANION GAP 19 (8-16); ASPARTATE AMINO TRANSFERASE 30 U/L (10-37); BILIRUBIN,TOTAL 0.4 MG/DL (0.1-1.0); BLOOD UREA NITROGEN 68 MG/DL (7-18); BUN/CREATININE RATIO 5.6 (5.4-32.0); CALCIUM 7.9 MG/DL (8.5-10.1); CHLORIDE 98 MMOL/L (99-107); CREATININE 12.05 MG/DL (0.60-1.10); GLUCOSE 120 MG/DL (70-104); POTASSIUM 4.6 MMOL/L (3.5-5.1); SODIUM 137 MMOL/L (135-145); TOTAL CARBON DIOXIDE 19.9 MMOL/L (24-32); TOTAL PROTEIN 7.2 G/DL (6.4-8.2); eGFR 4 ML/MIN
[2021-08-18 11:00] VITALS: BP 140/75
[2021-08-18 11:13] LABS: ALKALINE PHOSPHATASE 174 IU/L (46-116)
[2021-08-18 15:00] VITALS: BP 147/73
[2021-08-18 18:00] VITALS: BP 112/89
--- NOTE | 2021-08-18 19:30 | NUR ---
Dialysis nurse informed nurse that patient was acting a littler Addendum: 08/18/21 at 2300 by Iqra Saez RN Dialysis nurse informed nurse that patient was acting different than before and having a more difficult time trying to say words. Patient has expressive aphasia. On-call informed. Order for stat CT.
[2021-08-18 22:00] VITALS: BP 149/81
[2021-08-19 02:00] VITALS: BP 109/68
[2021-08-19 06:00] VITALS: BP 109/68
[2021-08-19 06:09] LABS: BASOPHILS # (AUTO) 0.1 X10'3 (0-0.2); BASOPHILS % (AUTO) 0.8 % (0-1); EOSINOPHILS # (AUTO) 0.2 X10'3 (0-0.9); EOSINOPHILS % (AUTO) 1.5 % (0-6); HEMATOCRIT 40.9 % (42.0-52.0); HEMOGLOBIN 13.4 g/dl (14.0-17.9); LYMPHOCYTES # (AUTO) 1.5 X10'3 (1.1-4.8); LYMPHOCYTES % (AUTO) 14.3 % (21-51); MEAN CORPUSCULAR HEMOGLOBIN 29.7 PG (27.0-31.0); MEAN CORPUSCULAR HGB CONC 32.7 g/dL (33.0-36.5); MEAN CORPUSCULAR VOLUME 90.8 FL (78-98); MEAN PLATELET VOLUME 8.9 FL (7.4-10.4); MONOCYTES % (AUTO) 9.4 % (2-12); NEUTROPHILS # (AUTO) 7.8 X10'3 (1.8-7.7); PLATELET COUNT 301 X10'3 (140-440); RED BLOOD COUNT 4.51 X10'6 (4.70-6.10); RED CELL DISTRIBUTION WIDTH 18.3 % (11.5-14.5); WHITE BLOOD COUNT 10.6 X10'3 (4.5-11.0)
[2021-08-19 06:27] LABS: ALANINE AMINOTRANSFERASE 70 U/L (12-78); ALBUMIN 3.7 G/DL (3.4-5.0); ANION GAP 19 (8-16); ASPARTATE AMINO TRANSFERASE 36 U/L (10-37); BILIRUBIN,TOTAL 0.5 MG/DL (0.1-1.0); BLOOD UREA NITROGEN 45 MG/DL (7-18); BUN/CREATININE RATIO 4.8 (5.4-32.0); CALCIUM 8.2 MG/DL (8.5-10.1); CHLORIDE 99 MMOL/L (99-107); CREATININE 9.46 MG/DL (0.60-1.10); GLUCOSE 83 MG/DL (70-104); POTASSIUM 4.5 MMOL/L (3.5-5.1); SODIUM 139 MMOL/L (135-145); TOTAL CARBON DIOXIDE 21.4 MMOL/L (24-32); TOTAL PROTEIN 7.5 G/DL (6.4-8.2); VANCOMYCIN,RANDOM 16.1 UG/ML; eGFR 6 ML/MIN
[2021-08-19] MEDS: K and/or MAG REPLACEMENT MC SCH ×2 (08:00→20:00)
[2021-08-19] MEDS: aspirin 81mg tab.chew PO SCH (08:22)
[2021-08-19] MEDS: atorvastatin 20mg tablet PO SCH (08:22)
[2021-08-19 11:00] VITALS: BP 118/68
[2021-08-19 15:00] VITALS: BP 124/64
[2021-08-19 18:00] VITALS: BP 163/74
[2021-08-19 22:00] VITALS: BP 131/68
[2021-08-20 02:00] VITALS: BP 169/79
[2021-08-20 06:00] VITALS: BP 130/76
[2021-08-20 06:40] LABS: BASOPHILS # (AUTO) 0.1 X10'3 (0-0.2); EOSINOPHILS # (AUTO) 0.3 X10'3 (0-0.9); EOSINOPHILS % (AUTO) 2.2 % (0-6); HEMATOCRIT 39.8 % (42.0-52.0); LYMPHOCYTES # (AUTO) 1.8 X10'3 (1.1-4.8); LYMPHOCYTES % (AUTO) 15.9 % (21-51); MEAN CORPUSCULAR HEMOGLOBIN 29.5 PG (27.0-31.0); MEAN CORPUSCULAR HGB CONC 32.7 g/dL (33.0-36.5); MEAN CORPUSCULAR VOLUME 90.4 FL (78-98); MEAN PLATELET VOLUME 9.1 FL (7.4-10.4); MONOCYTES # (AUTO) 1.1 X10'3 (0-0.9); MONOCYTES % (AUTO) 9.1 % (2-12); NEUTROPHILS # (AUTO) 8.3 X10'3 (1.8-7.7); NEUTROPHILS % (AUTO) 71.8 % (42-75); PLATELET COUNT 297 X10'3 (140-440); RED BLOOD COUNT 4.41 X10'6 (4.70-6.10); RED CELL DISTRIBUTION WIDTH 17.9 % (11.5-14.5); WHITE BLOOD COUNT 11.6 X10'3 (4.5-11.0)
[2021-08-20 07:32] LABS: ALANINE AMINOTRANSFERASE 73 U/L (12-78); ALBUMIN 3.6 G/DL (3.4-5.0); ALBUMIN/GLOBULIN RATIO 0.9 (1.1-1.5); ANION GAP 19 (8-16); ASPARTATE AMINO TRANSFERASE 33 U/L (10-37); BILIRUBIN,TOTAL 0.4 MG/DL (0.1-1.0); BLOOD UREA NITROGEN 63 MG/DL (7-18); BUN/CREATININE RATIO 5.5 (5.4-32.0); CALCIUM 8.2 MG/DL (8.5-10.1); CHLORIDE 101 MMOL/L (99-107); CREATININE 11.44 MG/DL (0.60-1.10); GLUCOSE 71 MG/DL (70-104); SODIUM 140 MMOL/L (135-145); TOTAL CARBON DIOXIDE 19.6 MMOL/L (24-32); TOTAL PROTEIN 7.5 G/DL (6.4-8.2); VANCOMYCIN,RANDOM 15.6 UG/ML; eGFR 4 ML/MIN
[2021-08-20] MEDS ORDERED: heparin 1,000 units/ml 10ml inj HE ONE ×2 (08:00)
[2021-08-20] MEDS ORDERED: heparin 1,000 units/ml 10ml inj IV ONE (08:00)
[2021-08-20] MEDS ORDERED: heparin 1,000unit/ml 10ml vial 10 ML IV ONE (08:00)
[2021-08-20] MEDS ORDERED: albumin (human) 25% 100ml IV 100 ML IV PRN (08:00)
[2021-08-20] MEDS: aspirin 81mg tab.chew PO SCH (08:30)
[2021-08-20] MEDS: atorvastatin 20mg tablet PO SCH (08:30)
[2021-08-20 11:00] VITALS: BP 140/84
--- NOTE | 2021-08-20 11:21 | NUR ---
Reassessment: Pt currently on Renal diet w/ slight increase in PO intake, avg 50% x 10 meals and currently partially meeting needs. Pt is still confused per EMR, likely impacting PO intake. Pt would benefit from Nepro TID, pending MD verification in EMR. Recommend routine Phos checks given pt on HD if MD agreeable; not receiving phos binder w/ meals per EMR. LBM 08/17. Will continue to monitor and make recommendations as appropriate. Recs: 1. Continue Renal diet as tolerated 2. Nepro TID; pending MD verification 3. Routine phos checks as pt on HD, consider phos binder with meals per MD 4. Bowel care per rx 5. Scaled wts w/ HD Addendum: 08/20/21 at [address] Amended: Links added. Addendum: 08/20/21 at [address] RD has reviewed and approves of above note.
--- NOTE | 2021-08-20 11:48 | NUR ---
PAGER ID: [phone] MESSAGE: patient [id number] is refusing dialysis and trying to leave again. Arsh
[2021-08-20 15:00] VITALS: BP 143/73
[2021-08-20 18:00] VITALS: BP 176/87
[2021-08-20] MEDS: K and/or MAG REPLACEMENT MC SCH ×2 (18:58→19:18)
[2021-08-20 22:00] VITALS: BP 100/66
[2021-08-21 06:00] VITALS: BP 106/72
[2021-08-21 06:17] LABS: BASOPHILS # (AUTO) 0.1 X10'3 (0-0.2); EOSINOPHILS # (AUTO) 0.2 X10'3 (0-0.9); EOSINOPHILS % (AUTO) 1.8 % (0-6); HEMOGLOBIN 13.7 g/dl (14.0-17.9); LYMPHOCYTES # (AUTO) 1.8 X10'3 (1.1-4.8); LYMPHOCYTES % (AUTO) 16.6 % (21-51); MEAN CORPUSCULAR HGB CONC 33.5 g/dL (33.0-36.5); MEAN CORPUSCULAR VOLUME 89.7 FL (78-98); MEAN PLATELET VOLUME 9.2 FL (7.4-10.4); MONOCYTES # (AUTO) 1.1 X10'3 (0-0.9); MONOCYTES % (AUTO) 9.9 % (2-12); NEUTROPHILS # (AUTO) 7.5 X10'3 (1.8-7.7); NEUTROPHILS % (AUTO) 70.7 % (42-75); PLATELET COUNT 291 X10'3 (140-440); RED BLOOD COUNT 4.57 X10'6 (4.70-6.10); RED CELL DISTRIBUTION WIDTH 17.8 % (11.5-14.5); WHITE BLOOD COUNT 10.6 X10'3 (4.5-11.0)
[2021-08-21 06:46] LABS: ALANINE AMINOTRANSFERASE 85 U/L (12-78); ALBUMIN 3.8 G/DL (3.4-5.0); ALBUMIN/GLOBULIN RATIO 0.9 (1.1-1.5); ANION GAP 15 (8-16); ASPARTATE AMINO TRANSFERASE 44 U/L (10-37); BILIRUBIN,TOTAL 0.5 MG/DL (0.1-1.0); BLOOD UREA NITROGEN 38 MG/DL (7-18); BUN/CREATININE RATIO 4.7 (5.4-32.0); CALCIUM 8.9 MG/DL (8.5-10.1); CHLORIDE 99 MMOL/L (99-107); CREATININE 8.11 MG/DL (0.60-1.10); GLUCOSE 67 MG/DL (70-104); POTASSIUM 4.9 MMOL/L (3.5-5.1); SODIUM 136 MMOL/L (135-145); TOTAL CARBON DIOXIDE 22.1 MMOL/L (24-32); eGFR 7 ML/MIN
[2021-08-21 07:04] LABS: ALKALINE PHOSPHATASE 203 IU/L (46-116)
[2021-08-21] MEDS: K and/or MAG REPLACEMENT MC SCH ×2 (08:00→20:00)
[2021-08-21] MEDS: aspirin 81mg tab.chew PO SCH (10:41)
[2021-08-21] MEDS: atorvastatin 20mg tablet PO SCH (10:41)
[2021-08-21 11:00] VITALS: BP 130/75
[2021-08-21 15:00] VITALS: BP 125/72
[2021-08-21 18:00] VITALS: BP 132/75
--- NOTE | 2021-08-21 18:49 | NUR ---
Problems reprioritized. Patient report given, questions answered & plan of care reviewed with Akilah/RN.
[2021-08-21 22:00] VITALS: BP 126/74
[2021-08-22 02:00] VITALS: BP 121/68
[2021-08-22 06:00] VITALS: BP 133/79
--- NOTE | 2021-08-22 06:56 | NUR ---
Problems reprioritized. Patient report given, questions answered & plan of care reviewed with MIN Singh.
--- NOTE | 2021-08-22 07:05 | NUR ---
Patient in room PCU 3023. I have received report from MIN Isbell and had the opportunity to ask questions and assume patient care.
[2021-08-22 07:21] LABS: BASOPHILS # (AUTO) 0.1 X10'3 (0-0.2); BASOPHILS % (AUTO) 0.9 % (0-1); EOSINOPHILS # (AUTO) 0.2 X10'3 (0-0.9); EOSINOPHILS % (AUTO) 1.8 % (0-6); HEMATOCRIT 42.4 % (42.0-52.0); HEMOGLOBIN 13.8 g/dl (14.0-17.9); LYMPHOCYTES # (AUTO) 1.8 X10'3 (1.1-4.8); LYMPHOCYTES % (AUTO) 17.3 % (21-51); MEAN CORPUSCULAR HEMOGLOBIN 29.7 PG (27.0-31.0); MEAN CORPUSCULAR HGB CONC 32.6 g/dL (33.0-36.5); MEAN CORPUSCULAR VOLUME 91.3 FL (78-98); MEAN PLATELET VOLUME 9.7 FL (7.4-10.4); MONOCYTES # (AUTO) 1.2 X10'3 (0-0.9); MONOCYTES % (AUTO) 11.8 % (2-12); NEUTROPHILS # (AUTO) 7.1 X10'3 (1.8-7.7); NEUTROPHILS % (AUTO) 68.2 % (42-75); PLATELET COUNT 283 X10'3 (140-440); RED BLOOD COUNT 4.65 X10'6 (4.70-6.10); RED CELL DISTRIBUTION WIDTH 17.8 % (11.5-14.5); WHITE BLOOD COUNT 10.4 X10'3 (4.5-11.0)
[2021-08-22 07:51] LABS: ALANINE AMINOTRANSFERASE 86 U/L (12-78); ALBUMIN 3.8 G/DL (3.4-5.0); ALBUMIN/GLOBULIN RATIO 0.9 (1.1-1.5); ANION GAP 17 (8-16); ASPARTATE AMINO TRANSFERASE 41 U/L (10-37); BILIRUBIN,TOTAL 0.5 MG/DL (0.1-1.0); BLOOD UREA NITROGEN 59 MG/DL (7-18); BUN/CREATININE RATIO 5.4 (5.4-32.0); CALCIUM 8.5 MG/DL (8.5-10.1); CHLORIDE 98 MMOL/L (99-107); CREATININE 10.97 MG/DL (0.60-1.10); GLUCOSE 86 MG/DL (70-104); SODIUM 137 MMOL/L (135-145); TOTAL CARBON DIOXIDE 21.7 MMOL/L (24-32); TOTAL PROTEIN 7.9 G/DL (6.4-8.2); eGFR 5 ML/MIN
[2021-08-22] MEDS ORDERED: heparin 1,000unit/ml 10ml vial 10 ML IV ONE (08:00)
[2021-08-22] MEDS ORDERED: normal saline 1000ml 250 ML IV PRN (08:00)
[2021-08-22] MEDS ORDERED: heparin 1,000 units/ml 10ml inj HE ONE ×2 (08:00)
[2021-08-22] MEDS: K and/or MAG REPLACEMENT MC SCH ×2 (08:00→20:00)
[2021-08-22] MEDS: atorvastatin 20mg tablet PO SCH (08:23)
[2021-08-22] MEDS: aspirin 81mg tab.chew PO SCH (08:23)
[2021-08-22 08:58] LABS: ALKALINE PHOSPHATASE 193 IU/L (46-116)
[2021-08-22 11:00] VITALS: BP 119/66
[2021-08-22 15:00] VITALS: BP 118/78
[2021-08-22 18:00] VITALS: BP 121/68
[2021-08-22 22:00] VITALS: BP 98/58
[2021-08-23 05:56] LABS: BASOPHILS # (AUTO) 0.1 X10'3 (0-0.2); BASOPHILS % (AUTO) 0.9 % (0-1); EOSINOPHILS # (AUTO) 0.2 X10'3 (0-0.9); EOSINOPHILS % (AUTO) 1.9 % (0-6); HEMATOCRIT 43.7 % (42.0-52.0); HEMOGLOBIN 14.2 g/dl (14.0-17.9); LYMPHOCYTES # (AUTO) 2.1 X10'3 (1.1-4.8); LYMPHOCYTES % (AUTO) 18.4 % (21-51); MEAN CORPUSCULAR HEMOGLOBIN 29.7 PG (27.0-31.0); MEAN CORPUSCULAR HGB CONC 32.4 g/dL (33.0-36.5); MEAN CORPUSCULAR VOLUME 91.5 FL (78-98); MEAN PLATELET VOLUME 9.8 FL (7.4-10.4); MONOCYTES # (AUTO) 1.2 X10'3 (0-0.9); NEUTROPHILS # (AUTO) 7.6 X10'3 (1.8-7.7); NEUTROPHILS % (AUTO) 67.8 % (42-75); PLATELET COUNT 256 X10'3 (140-440); RED BLOOD COUNT 4.78 X10'6 (4.70-6.10); RED CELL DISTRIBUTION WIDTH 17.7 % (11.5-14.5); WHITE BLOOD COUNT 11.3 X10'3 (4.5-11.0)
[2021-08-23 06:00] VITALS: BP 122/72
[2021-08-23 06:38] LABS: ALANINE AMINOTRANSFERASE 103 U/L (12-78); ALBUMIN 3.9 G/DL (3.4-5.0); ALKALINE PHOSPHATASE 208 IU/L (46-116); ANION GAP 18 (8-16); ASPARTATE AMINO TRANSFERASE 56 U/L (10-37); BILIRUBIN,TOTAL 0.4 MG/DL (0.1-1.0); BLOOD UREA NITROGEN 41 MG/DL (7-18); BUN/CREATININE RATIO 4.8 (5.4-32.0); CALCIUM 8.7 MG/DL (8.5-10.1); CHLORIDE 98 MMOL/L (99-107); CREATININE 8.63 MG/DL (0.60-1.10); GLUCOSE 89 MG/DL (70-104); POTASSIUM 5.2 MMOL/L (3.5-5.1); SODIUM 140 MMOL/L (135-145); TOTAL CARBON DIOXIDE 24.1 MMOL/L (24-32); TOTAL PROTEIN 7.8 G/DL (6.4-8.2); eGFR 6 ML/MIN
[2021-08-23] MEDS: atorvastatin 20mg tablet PO SCH ×2 (08:00→08:31)
[2021-08-23] MEDS: K and/or MAG REPLACEMENT MC SCH (08:00)
[2021-08-23] MEDS: aspirin 81mg tab.chew PO SCH ×2 (08:30→08:31)
[2021-08-23 11:00] VITALS: BP 100/70
[2021-08-23 15:00] VITALS: BP 120/76
[2021-08-23 18:00] VITALS: BP 118/76
[2021-08-23 22:00] VITALS: BP 130/70
[2021-08-24 02:00] VITALS: BP 128/68
[2021-08-24 06:00] VITALS: BP 126/68
[2021-08-24 06:56] LABS: BASOPHILS # (AUTO) 0.1 X10'3 (0-0.2); BASOPHILS % (AUTO) 0.9 % (0-1); EOSINOPHILS # (AUTO) 0.2 X10'3 (0-0.9); EOSINOPHILS % (AUTO) 1.9 % (0-6); HEMATOCRIT 43.4 % (42.0-52.0); LYMPHOCYTES # (AUTO) 2.3 X10'3 (1.1-4.8); MEAN CORPUSCULAR HEMOGLOBIN 29.4 PG (27.0-31.0); MEAN CORPUSCULAR HGB CONC 32.3 g/dL (33.0-36.5); MEAN PLATELET VOLUME 10.2 FL (7.4-10.4); MONOCYTES # (AUTO) 1.3 X10'3 (0-0.9); NEUTROPHILS # (AUTO) 8.8 X10'3 (1.8-7.7); NEUTROPHILS % (AUTO) 69.2 % (42-75); PLATELET COUNT 242 X10'3 (140-440); RED BLOOD COUNT 4.77 X10'6 (4.70-6.10); RED CELL DISTRIBUTION WIDTH 17.9 % (11.5-14.5); WHITE BLOOD COUNT 12.8 X10'3 (4.5-11.0)
--- NOTE | 2021-08-24 07:12 | NUR ---
Patient in room PCU 3023. I have received report from MIN Isbell and had the opportunity to ask questions and assume patient care.
[2021-08-24 07:23] LABS: ALANINE AMINOTRANSFERASE 95 U/L (12-78); ALBUMIN 3.8 G/DL (3.4-5.0); ALKALINE PHOSPHATASE 201 IU/L (46-116); ANION GAP 24 (8-16); ASPARTATE AMINO TRANSFERASE 56 U/L (10-37); BILIRUBIN,TOTAL 0.5 MG/DL (0.1-1.0); BLOOD UREA NITROGEN 59 MG/DL (7-18); BUN/CREATININE RATIO 5.5 (5.4-32.0); CALCIUM 8.2 MG/DL (8.5-10.1); CHLORIDE 96 MMOL/L (99-107); CREATININE 10.76 MG/DL (0.60-1.10); GLUCOSE 78 MG/DL (70-104); POTASSIUM 5.1 MMOL/L (3.5-5.1); SODIUM 141 MMOL/L (135-145); TOTAL CARBON DIOXIDE 21.4 MMOL/L (24-32); TOTAL PROTEIN 7.5 G/DL (6.4-8.2); eGFR 5 ML/MIN
[2021-08-24] MEDS: K and/or MAG REPLACEMENT MC SCH ×2 (08:00→19:58)
[2021-08-24] MEDS: aspirin 81mg tab.chew PO SCH (09:01)
[2021-08-24] MEDS: atorvastatin 20mg tablet PO SCH (09:01)
--- NOTE | 2021-08-24 09:10 | NUR ---
Reassessment: Pt continues on Renal diet w/ mostly 50% intake of meals partially meeting needs. ONS remains unverified though pt can still benefit from Nepro TID while on HD. Last dialysis treatment 08/22 w/ 700ml out per documentation. Pt remains A&O x 2 and confused though able to feed self per EMR. LBM 08/19, recommend routine bowel care if MD agreeable. Will continue to monitor. Recs: 1. Continue Renal diet as tolerated 2. Nepro TID; pending MD verification 3. Routine phos checks as pt on HD, consider phos binder with meals per MD 4. Routine bowel care 5. Scaled wts w/ HD Addendum: 08/24/21 at [address] Amended: Links added.
--- NOTE | 2021-08-24 09:24 | NUR ---
Spoke with residential service technician Holly this morning. mode of transportation explained. told tech that transportation will be better via gurney rather than w/c as patient is very active and may not understand to stay still in the W/C. offer to administer ativan before testing so patient can be a bit more cooperative.
--- NOTE | 2021-08-24 09:39 | NUR ---
Please disregard last note entered , was for 26B
[2021-08-24 11:00] VITALS: BP 132/78
[2021-08-24 15:00] VITALS: BP 104/63
[2021-08-24 18:00] VITALS: BP 126/71
[2021-08-24 22:00] VITALS: BP 111/77
[2021-08-25 02:00] VITALS: BP 122/69
[2021-08-25 05:54] LABS: BASOPHILS # (AUTO) 0.1 X10'3 (0-0.2); BASOPHILS % (AUTO) 0.8 % (0-1); EOSINOPHILS # (AUTO) 0.2 X10'3 (0-0.9); HEMATOCRIT 41.7 % (42.0-52.0); HEMOGLOBIN 13.6 g/dl (14.0-17.9); LYMPHOCYTES # (AUTO) 1.9 X10'3 (1.1-4.8); LYMPHOCYTES % (AUTO) 15.6 % (21-51); MEAN CORPUSCULAR HEMOGLOBIN 29.5 PG (27.0-31.0); MEAN CORPUSCULAR HGB CONC 32.7 g/dL (33.0-36.5); MEAN CORPUSCULAR VOLUME 90.4 FL (78-98); MONOCYTES # (AUTO) 1.1 X10'3 (0-0.9); MONOCYTES % (AUTO) 9.2 % (2-12); NEUTROPHILS # (AUTO) 8.7 X10'3 (1.8-7.7); NEUTROPHILS % (AUTO) 72.4 % (42-75); PLATELET COUNT 238 X10'3 (140-440); RED BLOOD COUNT 4.62 X10'6 (4.70-6.10); RED CELL DISTRIBUTION WIDTH 17.3 % (11.5-14.5)
[2021-08-25 06:00] VITALS: BP 119/64
[2021-08-25 06:38] LABS: ALANINE AMINOTRANSFERASE 100 U/L (12-78); ALBUMIN 3.8 G/DL (3.4-5.0); ALBUMIN/GLOBULIN RATIO 1.1 (1.1-1.5); ALKALINE PHOSPHATASE 202 IU/L (46-116); ANION GAP 23 (8-16); ASPARTATE AMINO TRANSFERASE 50 U/L (10-37); BILIRUBIN,TOTAL 0.4 MG/DL (0.1-1.0); BLOOD UREA NITROGEN 78 MG/DL (7-18); BUN/CREATININE RATIO 6.1 (5.4-32.0); CHLORIDE 96 MMOL/L (99-107); CREATININE 12.86 MG/DL (0.60-1.10); GLUCOSE 80 MG/DL (70-104); SODIUM 140 MMOL/L (135-145); TOTAL CARBON DIOXIDE 20.7 MMOL/L (24-32); TOTAL PROTEIN 7.4 G/DL (6.4-8.2); eGFR 4 ML/MIN
--- NOTE | 2021-08-25 07:03 | NUR ---
Patient in room PCU 3023. I have received report from MIN FRANKS and had the opportunity to ask questions and assume patient care.
[2021-08-25] MEDS: K and/or MAG REPLACEMENT MC SCH ×2 (08:00→20:00)
[2021-08-25] MEDS: aspirin 81mg tab.chew PO SCH (09:23)
[2021-08-25] MEDS: atorvastatin 20mg tablet PO SCH (09:23)
[2021-08-25] MEDS ORDERED: normal saline 1000ml 250 ML IV PRN (10:00)
[2021-08-25] MEDS ORDERED: heparin 1,000unit/ml 10ml vial 10 ML IV ONE (10:00)
[2021-08-25] MEDS ORDERED: heparin 1,000 units/ml 10ml inj HE ONE ×2 (10:05)
[2021-08-25 11:00] VITALS: BP 133/65
[2021-08-25 15:00] VITALS: BP 118/68
[2021-08-25] MEDS ORDERED: tPA-cathflo 2 MG/2 ml IV flush IVF STA ×2 (15:51)
[2021-08-25 18:00] VITALS: BP 116/81
[2021-08-25 22:00] VITALS: BP 114/79
[2021-08-26 02:00] VITALS: BP 116/76
[2021-08-26 06:00] VITALS: BP 107/69
[2021-08-26 06:09] LABS: BASOPHILS # (AUTO) 0.1 X10'3 (0-0.2); BASOPHILS % (AUTO) 0.8 % (0-1); EOSINOPHILS # (AUTO) 0.2 X10'3 (0-0.9); EOSINOPHILS % (AUTO) 1.5 % (0-6); HEMATOCRIT 46.5 % (42.0-52.0); HEMOGLOBIN 15.2 g/dl (14.0-17.9); LYMPHOCYTES # (AUTO) 1.9 X10'3 (1.1-4.8); LYMPHOCYTES % (AUTO) 16.5 % (21-51); MEAN CORPUSCULAR HEMOGLOBIN 29.8 PG (27.0-31.0); MEAN CORPUSCULAR HGB CONC 32.6 g/dL (33.0-36.5); MEAN CORPUSCULAR VOLUME 91.3 FL (78-98); MEAN PLATELET VOLUME 10.2 FL (7.4-10.4); MONOCYTES # (AUTO) 1.2 X10'3 (0-0.9); MONOCYTES % (AUTO) 10.8 % (2-12); NEUTROPHILS # (AUTO) 7.9 X10'3 (1.8-7.7); NEUTROPHILS % (AUTO) 70.4 % (42-75); PLATELET COUNT 236 X10'3 (140-440); RED BLOOD COUNT 5.09 X10'6 (4.70-6.10); RED CELL DISTRIBUTION WIDTH 17.9 % (11.5-14.5); WHITE BLOOD COUNT 11.2 X10'3 (4.5-11.0)
--- NOTE | 2021-08-26 06:31 | NUR ---
Patient in room PCU 3023. I have received report from MIN Juarez and had the opportunity to ask questions and assume patient care.
[2021-08-26 06:38] LABS: ALANINE AMINOTRANSFERASE 132 U/L (12-78); ALBUMIN 4.2 G/DL (3.4-5.0); ALKALINE PHOSPHATASE 249 IU/L (46-116); ANION GAP 22 (8-16); ASPARTATE AMINO TRANSFERASE 73 U/L (10-37); BILIRUBIN,TOTAL 0.4 MG/DL (0.1-1.0); BLOOD UREA NITROGEN 58 MG/DL (7-18); BUN/CREATININE RATIO 5.3 (5.4-32.0); CALCIUM 8.6 MG/DL (8.5-10.1); CHLORIDE 96 MMOL/L (99-107); CREATININE 10.92 MG/DL (0.60-1.10); GLUCOSE 87 MG/DL (70-104); SODIUM 140 MMOL/L (135-145); TOTAL CARBON DIOXIDE 21.9 MMOL/L (24-32); TOTAL PROTEIN 8.3 G/DL (6.4-8.2); eGFR 5 ML/MIN
[2021-08-26 06:44] LABS: POTASSIUM 5.9 MMOL/L (3.5-5.1)
[2021-08-26] MEDS: K and/or MAG REPLACEMENT MC SCH ×2 (08:00→20:00)
[2021-08-26 09:06] LABS: HBSAG SCREEN Negative (Negative); HEP A AB, IGM Negative (Negative); HEPATITIS C ANTIBODY <0.1 s/co ratio (0.0-0.9)
[2021-08-26 11:00] VITALS: BP 116/71
[2021-08-26] MEDS: NUT.TX.IMP.RENAL FXN,LAC-REDUC (Nepro) 237 ML VANILLA PO SCH ×2 (13:00→18:00)
[2021-08-26 15:00] VITALS: BP 119/76
[2021-08-26] MEDS ORDERED: aspirin 81mg tab.chew PO ONE (15:40)
[2021-08-26] MEDS ORDERED: atorvastatin 20mg tablet PO ONE (15:40)
[2021-08-26 18:00] VITALS: BP 110/74
[2021-08-26 22:00] VITALS: BP 122/69
[2021-08-27 02:00] VITALS: BP 128/76
[2021-08-27 06:00] VITALS: BP 114/67
[2021-08-27 06:03] LABS: BASOPHILS # (AUTO) 0.1 X10'3 (0-0.2); BASOPHILS % (AUTO) 1.1 % (0-1); EOSINOPHILS # (AUTO) 0.2 X10'3 (0-0.9); EOSINOPHILS % (AUTO) 1.8 % (0-6); HEMATOCRIT 45.4 % (42.0-52.0); HEMOGLOBIN 14.9 g/dl (14.0-17.9); LYMPHOCYTES # (AUTO) 2.1 X10'3 (1.1-4.8); LYMPHOCYTES % (AUTO) 15.1 % (21-51); MEAN CORPUSCULAR HEMOGLOBIN 29.8 PG (27.0-31.0); MEAN CORPUSCULAR HGB CONC 32.9 g/dL (33.0-36.5); MEAN CORPUSCULAR VOLUME 90.7 FL (78-98); MEAN PLATELET VOLUME 10.7 FL (7.4-10.4); MONOCYTES # (AUTO) 1.3 X10'3 (0-0.9); MONOCYTES % (AUTO) 9.6 % (2-12); NEUTROPHILS # (AUTO) 9.8 X10'3 (1.8-7.7); NEUTROPHILS % (AUTO) 72.4 % (42-75); PLATELET COUNT 239 X10'3 (140-440); RED CELL DISTRIBUTION WIDTH 17.7 % (11.5-14.5); WHITE BLOOD COUNT 13.6 X10'3 (4.5-11.0)
[2021-08-27 06:59] LABS: ALANINE AMINOTRANSFERASE 127 U/L (12-78); ALBUMIN/GLOBULIN RATIO 0.9 (1.1-1.5); ANION GAP 30 (8-16); ASPARTATE AMINO TRANSFERASE 82 U/L (10-37); BILIRUBIN,TOTAL 0.4 MG/DL (0.1-1.0); BLOOD UREA NITROGEN 78 MG/DL (7-18); BUN/CREATININE RATIO 5.9 (5.4-32.0); CALCIUM 8.3 MG/DL (8.5-10.1); CHLORIDE 91 MMOL/L (99-107); CREATININE 13.23 MG/DL (0.60-1.10); GLUCOSE 82 MG/DL (70-104); SODIUM 137 MMOL/L (135-145); TOTAL CARBON DIOXIDE 15.9 MMOL/L (24-32); TOTAL PROTEIN 8.7 G/DL (6.4-8.2); eGFR 4 ML/MIN
[2021-08-27] MEDS: NUT.TX.IMP.RENAL FXN,LAC-REDUC (Nepro) 237 ML VANILLA PO SCH ×3 (08:00→18:59)
[2021-08-27] MEDS: K and/or MAG REPLACEMENT MC SCH ×2 (08:00→20:00)
--- NOTE | 2021-08-27 08:42 | NUR ---
Page sent Page Accepted Message: [id number]. Monty Kimble. potassium is high at 6.0. he's supposed to have dialysis MWF. temp cath is not working. plan was for IR placement today. I don't see an order. do you want to treat? pls adv [id number] Arina
[2021-08-27] MEDS ORDERED: heparin 1,000unit/ml 10ml vial 10 ML IV ONE (09:00)
[2021-08-27] MEDS ORDERED: normal saline 1000ml 250 ML IV PRN (09:00)
[2021-08-27] MEDS ORDERED: heparin 1,000 units/ml 10ml inj HE ONE ×2 (09:00)
[2021-08-27] MEDS: atorvastatin 20mg tablet PO SCH (09:17)
[2021-08-27] MEDS: aspirin 81mg tab.chew PO SCH (09:17)
[2021-08-27 09:52] LABS: TOTAL CELLS COUNTED 100
[2021-08-27 09:53] LABS: HYPERSEGMENTED NEUTROPHILS FEW; LARGE PLATELETS MODERATE; PLATELET ESTIMATE NORMAL; TOXIC GRANULATION 1+; TOXIC VACUOLATION 2+
[2021-08-27 09:54] LABS: ANISOCYTOSIS FEW
[2021-08-27 11:00] VITALS: BP 116/65
--- NOTE | 2021-08-27 11:23 | NUR ---
Reassessment: Pt continues on Renal diet w/ recent 57% intake x 8 meals and 25% first ONS, w/ refusal of ONS 08/27 partially meeting needs. Last dialysis treatment 08/25 w/ 1276 mL out per documentation. Pt remains A&O x 2 and confused though able to feed self per EMR. If PO intake does not improve, may consider supplemental tube feeds to help meet calorie and protein needs. LBM 08/26, recommend routine bowel care if MD agreeable. Will continue to monitor. Recs: 1. Continue Renal diet as tolerated 2. Nepro TID 3. Routine phos checks as pt on HD, consider phos binder with meals per MD 4. Routine bowel care 5. Scaled wts w/ HD 6. Supplemental tube feeds if PO does not improve and within POC Addendum: 08/27/21 at [address] Amended: Links added. Addendum: 08/27/21 at [address] I have reviewed assessment by digital media intern
[2021-08-27 15:00] VITALS: BP 91/63
[2021-08-27 18:00] VITALS: BP 98/79
--- NOTE | 2021-08-27 19:44 | NUR ---
Problems reprioritized. Patient report given, questions answered & plan of care reviewed with MIN Juarez.
[2021-08-27 22:00] VITALS: BP 99/76
[2021-08-28 02:00] VITALS: BP 100/82
[2021-08-28 06:00] VITALS: BP 116/75
[2021-08-28 06:34] LABS: BASOPHILS # (AUTO) 0.1 X10'3 (0-0.2); EOSINOPHILS # (AUTO) 0.2 X10'3 (0-0.9); EOSINOPHILS % (AUTO) 1.9 % (0-6); HEMATOCRIT 44.9 % (42.0-52.0); HEMOGLOBIN 14.7 g/dl (14.0-17.9); LYMPHOCYTES # (AUTO) 1.8 X10'3 (1.1-4.8); LYMPHOCYTES % (AUTO) 14.7 % (21-51); MEAN CORPUSCULAR HGB CONC 32.8 g/dL (33.0-36.5); MEAN CORPUSCULAR VOLUME 91.5 FL (78-98); MEAN PLATELET VOLUME 10.1 FL (7.4-10.4); MONOCYTES # (AUTO) 1.3 X10'3 (0-0.9); MONOCYTES % (AUTO) 11.3 % (2-12); NEUTROPHILS # (AUTO) 8.5 X10'3 (1.8-7.7); NEUTROPHILS % (AUTO) 71.1 % (42-75); PLATELET COUNT 218 X10'3 (140-440); RED BLOOD COUNT 4.91 X10'6 (4.70-6.10); RED CELL DISTRIBUTION WIDTH 17.6 % (11.5-14.5); WHITE BLOOD COUNT 11.9 X10'3 (4.5-11.0)
--- NOTE | 2021-08-28 07:00 | NUR ---
Patient in room PCU 3023. I have received report from MIN Juarez and had the opportunity to ask questions and assume patient care.
[2021-08-28 07:30] LABS: ALANINE AMINOTRANSFERASE 119 U/L (12-78); ALBUMIN 3.9 G/DL (3.4-5.0); ALKALINE PHOSPHATASE 226 IU/L (46-116); ANION GAP 22 (8-16); ASPARTATE AMINO TRANSFERASE 55 U/L (10-37); BILIRUBIN,TOTAL 0.4 MG/DL (0.1-1.0); BLOOD UREA NITROGEN 52 MG/DL (7-18); BUN/CREATININE RATIO 5.4 (5.4-32.0); CALCIUM 8.3 MG/DL (8.5-10.1); CHLORIDE 98 MMOL/L (99-107); GLUCOSE 79 MG/DL (70-104); POTASSIUM 5.3 MMOL/L (3.5-5.1); SODIUM 140 MMOL/L (135-145); TOTAL CARBON DIOXIDE 20.5 MMOL/L (24-32); TOTAL PROTEIN 7.7 G/DL (6.4-8.2); eGFR 5 ML/MIN
[2021-08-28] MEDS: K and/or MAG REPLACEMENT MC SCH ×2 (08:00→20:00)
[2021-08-28] MEDS: atorvastatin 20mg tablet PO SCH (09:10)
[2021-08-28] MEDS: aspirin 81mg tab.chew PO SCH (09:10)
[2021-08-28] MEDS: NUT.TX.IMP.RENAL FXN,LAC-REDUC (Nepro) 237 ML VANILLA PO SCH ×3 (09:11→18:00)
--- NOTE | 2021-08-28 10:00 | NUR ---
Patient in room PCU 3023. I have received report from Francisco COPELAND and had the opportunity to ask questions and assume patient care.
[2021-08-28 11:00] VITALS: BP 94/60
[2021-08-28 15:00] VITALS: BP 109/61
[2021-08-28 18:00] VITALS: BP 119/65
[2021-08-28 22:00] VITALS: BP 121/69
[2021-08-29 02:00] VITALS: BP 112/75
[2021-08-29 06:00] VITALS: BP 103/69
[2021-08-29] MEDS ORDERED: heparin 1,000unit/ml 10ml vial 10 ML IV ONE (07:25)
[2021-08-29] MEDS ORDERED: normal saline 1000ml 250 ML IV PRN (07:25)
[2021-08-29] MEDS ORDERED: heparin 1,000 units/ml 10ml inj HE ONE ×2 (07:30)
[2021-08-29] MEDS: K and/or MAG REPLACEMENT MC SCH ×2 (08:00→20:00)
[2021-08-29] MEDS: aspirin 81mg tab.chew PO SCH (09:08)
[2021-08-29] MEDS: NUT.TX.IMP.RENAL FXN,LAC-REDUC (Nepro) 237 ML VANILLA PO SCH ×3 (09:08→18:45)
[2021-08-29] MEDS: atorvastatin 20mg tablet PO SCH (09:08)
[2021-08-29 11:00] VITALS: BP 88/59
[2021-08-29 15:00] VITALS: BP 101/68
[2021-08-29 18:00] VITALS: BP 110/66
--- NOTE | 2021-08-29 18:33 | NUR ---
Patient in room PCU 3023. I have received report from CANDY COPELAND and had the opportunity to ask questions and assume patient care.
[2021-08-29 22:00] VITALS: BP 122/75
[2021-08-30 02:00] VITALS: BP 126/66
[2021-08-30 06:00] VITALS: BP 114/62
--- NOTE | 2021-08-30 06:38 | NUR ---
Patient in room PCU 3023B. I have received report from Lincoln and had the opportunity to ask questions and assume patient care.
--- NOTE | 2021-08-30 06:51 | NUR ---
Problems reprioritized. Patient report given, questions answered & plan of care reviewed with CANDY COPELAND.
[2021-08-30] MEDS: NUT.TX.IMP.RENAL FXN,LAC-REDUC (Nepro) 237 ML VANILLA PO SCH ×3 (08:00→18:00)
[2021-08-30] MEDS: K and/or MAG REPLACEMENT MC SCH ×2 (08:00→19:31)
[2021-08-30] MEDS: aspirin 81mg tab.chew PO SCH (08:22)
[2021-08-30] MEDS: atorvastatin 20mg tablet PO SCH (08:23)
[2021-08-30 11:00] VITALS: BP 112/66
--- NOTE | 2021-08-30 11:20 | NUR ---
Reassessment: PO intake has slightly declined since last nutrition assessment, documented with average 47% PO intake x 8 most recent meals. Noted pt has been refusing Nepro since 08/28. Pending documentation of meal and ONS PO intake for today. Noted pt A/O x 1 and confused with a sitter at bedside though pt independent with meals. Recommend assisting with meals to optimize PO intake. LBM 08/30, first BM since 08/26. Hopeful that bowel regularity will help improve appetite. If PO intake does not improve pt would benefit from nutrition support given increased needs r/t dialysis. Per EMR pt with 600 mL fluid removed from dialysis 08/29. Will continue to follow closely. Recommendations: 1. Consider liberalizing to regular diet if PO intake does not improve 2. Nepro TIDWM; discontinue if pt not accepting 3. Encourage PO intake and assist with meals given decreased mentation 4. Routine phos checks given HD, consider phos binder with meals per MD 5. Routine bowel care 6. Scaled wts with HD 7. Supplemental tube feed if PO does not improve and within POC Addendum: 08/30/21 at [address] Amended: Links added.
[2021-08-30 15:00] VITALS: BP 136/64
--- NOTE | 2021-08-30 18:30 | NUR ---
Problems reprioritized. Patient report given, questions answered & plan of care reviewed with Tegan.
[2021-08-30 19:00] VITALS: BP 106/57
[2021-08-30 22:00] VITALS: BP 115/68
[2021-08-31 02:00] VITALS: BP 98/56
[2021-08-31 06:00] VITALS: BP 110/59
--- NOTE | 2021-08-31 06:37 | NUR ---
Patient in room PCU 3023B. I have received report from Sussex and had the opportunity to ask questions and assume patient care.
--- NOTE | 2021-08-31 06:47 | NUR ---
Problems reprioritized. Patient report given, questions answered & plan of care reviewed with Yifan.
[2021-08-31] MEDS: NUT.TX.IMP.RENAL FXN,LAC-REDUC (Nepro) 237 ML VANILLA PO SCH ×3 (08:00→18:00)
[2021-08-31] MEDS: K and/or MAG REPLACEMENT MC SCH ×2 (08:00→19:35)
[2021-08-31] MEDS: atorvastatin 20mg tablet PO SCH (08:39)
[2021-08-31] MEDS: aspirin 81mg tab.chew PO SCH (08:39)
[2021-08-31 11:00] VITALS: BP 105/59
[2021-08-31 15:00] VITALS: BP 111/59
[2021-08-31 18:00] VITALS: BP 112/59
--- NOTE | 2021-08-31 18:30 | NUR ---
Problems reprioritized. Patient report given, questions answered & plan of care reviewed with Tegan.
[2021-08-31 22:00] VITALS: BP 106/74
[2021-09-01 02:00] VITALS: BP 118/76
[2021-09-01 06:00] VITALS: BP 103/63
--- NOTE | 2021-09-01 06:37 | NUR ---
Problems reprioritized. Patient report given, questions answered & plan of care reviewed with Mosha.
[2021-09-01] MEDS ORDERED: heparin 1,000unit/ml 10ml vial 10 ML IV ONE (08:00)
[2021-09-01] MEDS ORDERED: heparin 1,000 units/ml 10ml inj HE ONE ×2 (08:00)
[2021-09-01] MEDS: K and/or MAG REPLACEMENT MC SCH ×2 (08:00→19:27)
[2021-09-01] MEDS ORDERED: normal saline 1000ml 250 ML IV PRN (08:00)
[2021-09-01] MEDS: aspirin 81mg tab.chew PO SCH (08:12)
[2021-09-01] MEDS: atorvastatin 20mg tablet PO SCH (08:12)
[2021-09-01 11:00] VITALS: BP 118/68
[2021-09-01 15:00] VITALS: BP_SYST 118; BP_SYST 93; BP_DIAS 68; BP_DIAS 70
[2021-09-01 18:00] VITALS: BP 98/71
[2021-09-01] MEDS: NUT.TX.IMP.RENAL FXN,LAC-REDUC (Nepro) 237 ML VANILLA PO SCH (18:00)
[2021-09-01 22:00] VITALS: BP 114/64
[2021-09-02 02:00] VITALS: BP 117/60
--- NOTE | 2021-09-02 06:53 | NUR ---
Problems reprioritized. Patient report given, questions answered & plan of care reviewed with Chiki..
[2021-09-02 07:00] VITALS: BP 118/71
[2021-09-02] MEDS: K and/or MAG REPLACEMENT MC SCH ×2 (08:00→20:00)
[2021-09-02] MEDS: NUT.TX.IMP.RENAL FXN,LAC-REDUC (Nepro) 237 ML VANILLA PO SCH ×2 (08:00→13:00)
[2021-09-02 08:57] LABS: BASOPHILS # (AUTO) 0.1 X10'3 (0-0.2); BASOPHILS % (AUTO) 0.7 % (0-1); EOSINOPHILS # (AUTO) 0.3 X10'3 (0-0.9); EOSINOPHILS % (AUTO) 2.7 % (0-6); HEMATOCRIT 42.5 % (42.0-52.0); HEMOGLOBIN 13.7 g/dl (14.0-17.9); LYMPHOCYTES # (AUTO) 1.4 X10'3 (1.1-4.8); LYMPHOCYTES % (AUTO) 12.5 % (21-51); MEAN CORPUSCULAR HEMOGLOBIN 29.6 PG (27.0-31.0); MEAN CORPUSCULAR HGB CONC 32.2 g/dL (33.0-36.5); MEAN PLATELET VOLUME 9.8 FL (7.4-10.4); MONOCYTES % (AUTO) 9.3 % (2-12); NEUTROPHILS # (AUTO) 8.2 X10'3 (1.8-7.7); NEUTROPHILS % (AUTO) 74.8 % (42-75); PLATELET COUNT 199 X10'3 (140-440); RED BLOOD COUNT 4.62 X10'6 (4.70-6.10); RED CELL DISTRIBUTION WIDTH 17.2 % (11.5-14.5)
[2021-09-02] MEDS: atorvastatin 20mg tablet PO SCH (09:41)
[2021-09-02] MEDS: aspirin 81mg tab.chew PO SCH (09:41)
[2021-09-02 10:00] LABS: ALBUMIN 3.4 G/DL (3.4-5.0); ANION GAP 25 (8-16); BLOOD UREA NITROGEN 105 MG/DL (7-18); BUN/CREATININE RATIO 6.6 (5.4-32.0); CALCIUM 7.6 MG/DL (8.5-10.1); CHLORIDE 97 MMOL/L (99-107); CREATININE 15.79 MG/DL (0.60-1.10); GLUCOSE 101 MG/DL (70-104); POTASSIUM 5.6 MMOL/L (3.5-5.1); SODIUM 136 MMOL/L (135-145); eGFR 3 ML/MIN
[2021-09-02] MEDS ORDERED: heparin 1,000unit/ml 10ml vial 10 ML IV ONE (10:05)
[2021-09-02] MEDS ORDERED: heparin 1,000 units/ml 10ml inj HE ONE ×2 (10:05)
[2021-09-02 10:07] LABS: TOTAL CARBON DIOXIDE 14.2 MMOL/L (24-32)
--- NOTE | 2021-09-02 10:11 | NUR ---
Critical C02 Result PAGER ID: [phone] MESSAGE: Dr Alvarez, - Monty Block has a critical C02 result of 14.2 Sugar - MIN U Ext:[id number]
--- NOTE | 2021-09-02 10:26 | NUR ---
Reassessment: PO intake has significantly improved with average 81% PO intake of [address] assessment 08/30, however with 100% PO intake of four most recent meals. Noted pt continues to mostly refuse Nepro. Given good PO intake of meals and poor ONS acceptance recommend discontinuing ONS, d/w RN. CATHERINE 08/31 per I&O. No nutrition intervention implemented at this time. Will continue to follow. Recommendations: 1. Consider liberalizing to regular diet if PO intake declines 2. Discontinue Nepro TIDWM given pt not accepting and good meal intake 3. Encourage PO intake and assist with meals given decreased mentation 4. Routine phos checks given HD, consider phos binder with meals per MD 5. Routine bowel care 6. Scaled wts with HD Addendum: 09/02/21 at [address] Amended: Links added.
[2021-09-02 11:00] VITALS: BP 122/78
[2021-09-02 15:00] VITALS: BP 112/70
[2021-09-02 18:00] VITALS: BP 113/75
[2021-09-02] MEDS: SODIUM ZIRCONIUM CYCLOSILICATE 10 GM POWD.PACK PO SCH (18:00)
--- NOTE | 2021-09-02 18:24 | NUR ---
Problems reprioritized. Patient report given, questions answered & plan of care reviewed with Reggie RN. Patient resting in room in no acute distress. Benefiting from sitter but sitter is NOT needed for this patient.
[2021-09-02 22:00] VITALS: BP 118/68
[2021-09-03 06:00] VITALS: BP 89/57
[2021-09-03] MEDS ORDERED: heparin 1,000unit/ml 10ml vial 10 ML IV ONE (08:00)
[2021-09-03] MEDS: K and/or MAG REPLACEMENT MC SCH ×2 (08:00→20:00)
[2021-09-03] MEDS ORDERED: heparin 1,000 units/ml 10ml inj HE ONE ×2 (08:00)
[2021-09-03] MEDS ORDERED: EPOETIN ALFA-EPBX 20,000 UNIT/ML 1 ML MDV IV ONE (08:00)
[2021-09-03] MEDS ORDERED: albumin (human) 25% 100ml IV 100 ML IV PRN (08:00)
[2021-09-03] MEDS ORDERED: heparin 1,000 units/ml 10ml inj IV ONE (08:00)
[2021-09-03] MEDS: atorvastatin 20mg tablet PO SCH (08:35)
[2021-09-03] MEDS: aspirin 81mg tab.chew PO SCH (08:35)
[2021-09-03] MEDS: SODIUM ZIRCONIUM CYCLOSILICATE 10 GM POWD.PACK PO SCH (08:35)
[2021-09-03] MEDS ORDERED: LIDOcaine 1% 30ml preserv. free vial ONE (09:43)
[2021-09-03] MEDS ORDERED: heparin 1,000 UNITS/NS 500ml 500 ML ONE (09:43)
[2021-09-03] MEDS ORDERED: heparin 1,000unit/ml 10ml vial 10 ML ONE (09:44)
[2021-09-03 11:00] VITALS: BP 126/63
[2021-09-03 12:09] LABS: BASOPHILS # (AUTO) 0.1 X10'3 (0-0.2); BASOPHILS % (AUTO) 0.9 % (0-1); EOSINOPHILS # (AUTO) 0.2 X10'3 (0-0.9); EOSINOPHILS % (AUTO) 2.9 % (0-6); HEMATOCRIT 42.1 % (42.0-52.0); HEMOGLOBIN 13.8 g/dl (14.0-17.9); LYMPHOCYTES # (AUTO) 1.1 X10'3 (1.1-4.8); LYMPHOCYTES % (AUTO) 12.9 % (21-51); MEAN CORPUSCULAR HEMOGLOBIN 29.6 PG (27.0-31.0); MEAN CORPUSCULAR HGB CONC 32.7 g/dL (33.0-36.5); MEAN CORPUSCULAR VOLUME 90.6 FL (78-98); MEAN PLATELET VOLUME 9.7 FL (7.4-10.4); MONOCYTES # (AUTO) 0.9 X10'3 (0-0.9); NEUTROPHILS # (AUTO) 6.1 X10'3 (1.8-7.7); NEUTROPHILS % (AUTO) 72.3 % (42-75); PLATELET COUNT 186 X10'3 (140-440); RED BLOOD COUNT 4.65 X10'6 (4.70-6.10); RED CELL DISTRIBUTION WIDTH 16.7 % (11.5-14.5); WHITE BLOOD COUNT 8.4 X10'3 (4.5-11.0)
[2021-09-03 12:28] LABS: ALBUMIN 3.4 G/DL (3.4-5.0); ANION GAP 13 (8-16); BLOOD UREA NITROGEN 65 MG/DL (7-18); BUN/CREATININE RATIO 5.9 (5.4-32.0); CALCIUM 7.7 MG/DL (8.5-10.1); CHLORIDE 97 MMOL/L (99-107); CREATININE 11.03 MG/DL (0.60-1.10); GLUCOSE 86 MG/DL (70-104); SODIUM 134 MMOL/L (135-145); TOTAL CARBON DIOXIDE 24.4 MMOL/L (24-32); eGFR 5 ML/MIN
[2021-09-03 12:35] LABS: PHOSPHORUS 9.2 MG/DL (2.3-4.5)
[2021-09-03 15:00] VITALS: BP 109/64
[2021-09-03 18:00] VITALS: BP 116/62
--- NOTE | 2021-09-03 19:08 | NUR ---
Patient in room PCU 3023. I have received report from BUD RN and had the opportunity to ask questions and assume patient care.
[2021-09-03 22:00] VITALS: BP 121/68
[2021-09-04] VITALS (7 sets, daily range): BP systolic 90–116; BP diastolic 59–68
--- NOTE | 2021-09-04 06:38 | NUR ---
Problems reprioritized. Patient report given, questions answered & plan of care reviewed with Anastasiya COPELAND.
[2021-09-04] MEDS ORDERED: heparin 1,000unit/ml 10ml vial 10 ML IV ONE (08:00)
[2021-09-04] MEDS ORDERED: heparin 1,000 units/ml 10ml inj HE ONE ×2 (08:00)
[2021-09-04] MEDS: atorvastatin 20mg tablet PO SCH (08:00)
[2021-09-04] MEDS: K and/or MAG REPLACEMENT MC SCH ×2 (08:00→20:00)
[2021-09-04] MEDS ORDERED: heparin 1,000 units/ml 10ml inj IV ONE (08:00)
--- NOTE | 2021-09-04 08:00 | NUR ---
Patient's bed does not measure weight. Patient refused to stand up on scale.
--- NOTE | 2021-09-04 08:09 | NUR ---
Patient refused Lokelma. Patient was educated and reorientated.
[2021-09-04] MEDS: aspirin 81mg tab.chew PO SCH (08:22)
--- NOTE | 2021-09-04 08:24 | NUR ---
PAGER ID: [phone] MESSAGE: [id number] Block, Monty- Patient refused Lipitor, aspirin, and lokelma. Anastasiya [phone]
--- NOTE | 2021-09-04 18:26 | NUR ---
Problems reprioritized. Patient report given, questions answered & plan of care reviewed with Eli COPELAND.
[2021-09-05] MEDS: SODIUM ZIRCONIUM CYCLOSILICATE 10 GM POWD.PACK PO SCH ×2 (05:30→06:03)
[2021-09-05 06:00] VITALS: BP 95/64
--- NOTE | 2021-09-05 06:40 | NUR ---
Problems reprioritized. Patient report given, questions answered & plan of care reviewed with JOHN COPELAND.
[2021-09-05] MEDS: atorvastatin 20mg tablet PO SCH ×2 (08:00→16:09)
[2021-09-05] MEDS: K and/or MAG REPLACEMENT MC SCH ×2 (08:00→20:00)
[2021-09-05] MEDS: aspirin 81mg tab.chew PO SCH ×2 (08:30→16:09)
[2021-09-05 11:00] VITALS: BP 97/69
[2021-09-05 15:00] VITALS: BP 92/58
--- NOTE | 2021-09-05 16:13 | NUR ---
Patient refused lipitor and aspirin this morning but was agreeable to take medications at 1600. Applesauce was given after.
[2021-09-05 18:00] VITALS: BP 98/63
--- NOTE | 2021-09-05 18:28 | NUR ---
Problems reprioritized. Patient report given, questions answered & plan of care reviewed with Eli COPELAND. Addendum: 09/06/21 at 0619 by Eli Saez RN Problems reprioritized. Patient report given, questions answered & plan of care reviewed with JOHN COPELAND.
[2021-09-05 22:00] VITALS: BP 118/64
[2021-09-06] MEDS: SODIUM ZIRCONIUM CYCLOSILICATE 10 GM POWD.PACK PO SCH ×3 (05:30→06:22)
[2021-09-06 06:00] VITALS: BP 105/62
[2021-09-06] MEDS: K and/or MAG REPLACEMENT MC SCH ×2 (08:00→19:21)
[2021-09-06] MEDS ORDERED: heparin 1,000 units/ml 10ml inj HE ONE ×2 (08:00)
[2021-09-06] MEDS ORDERED: heparin 1,000unit/ml 10ml vial 10 ML IV ONE (08:00)
[2021-09-06] MEDS ORDERED: heparin 1,000 units/ml 10ml inj IV ONE (08:00)
[2021-09-06] MEDS ORDERED: albumin (human) 25% 100ml IV 100 ML IV PRN (08:00)
[2021-09-06] MEDS: atorvastatin 20mg tablet PO SCH (08:51)
[2021-09-06] MEDS: aspirin 81mg tab.chew PO SCH (08:52)
[2021-09-06 11:00] VITALS: BP 109/62
[2021-09-06 11:00] LABS: BASOPHILS # (AUTO) 0.1 X10'3 (0-0.2); BASOPHILS % (AUTO) 1.3 % (0-1); EOSINOPHILS # (AUTO) 0.4 X10'3 (0-0.9); EOSINOPHILS % (AUTO) 3.9 % (0-6); HEMATOCRIT 40.8 % (42.0-52.0); HEMOGLOBIN 13.6 g/dl (14.0-17.9); LYMPHOCYTES # (AUTO) 1.5 X10'3 (1.1-4.8); LYMPHOCYTES % (AUTO) 15.2 % (21-51); MEAN CORPUSCULAR HEMOGLOBIN 29.6 PG (27.0-31.0); MEAN CORPUSCULAR HGB CONC 33.3 g/dL (33.0-36.5); MEAN PLATELET VOLUME 9.3 FL (7.4-10.4); MONOCYTES # (AUTO) 0.8 X10'3 (0-0.9); MONOCYTES % (AUTO) 8.4 % (2-12); NEUTROPHILS # (AUTO) 6.8 X10'3 (1.8-7.7); NEUTROPHILS % (AUTO) 71.2 % (42-75); PLATELET COUNT 209 X10'3 (140-440); RED BLOOD COUNT 4.58 X10'6 (4.70-6.10); RED CELL DISTRIBUTION WIDTH 16.1 % (11.5-14.5); WHITE BLOOD COUNT 9.5 X10'3 (4.5-11.0)
[2021-09-06 11:46] LABS: ALBUMIN 3.3 G/DL (3.4-5.0); ALBUMIN/GLOBULIN RATIO 0.8 (1.1-1.5); ALKALINE PHOSPHATASE 172 IU/L (46-116); ANION GAP 20 (8-16); BLOOD UREA NITROGEN 80 MG/DL (7-18); BUN/CREATININE RATIO 6.7 (5.4-32.0); CALCIUM 7.9 MG/DL (8.5-10.1); CHLORIDE 94 MMOL/L (99-107); CREATININE 11.88 MG/DL (0.60-1.10); GLUCOSE 117 MG/DL (70-104); MAGNESIUM 2.3 MG/DL (1.5-2.4); POTASSIUM 4.9 MMOL/L (3.5-5.1); SODIUM 135 MMOL/L (135-145); TOTAL CARBON DIOXIDE 20.9 MMOL/L (24-32); TOTAL PROTEIN 7.2 G/DL (6.4-8.2); eGFR 4 ML/MIN
[2021-09-06 11:48] LABS: ALANINE AMINOTRANSFERASE 74 U/L (12-78); ASPARTATE AMINO TRANSFERASE 36 U/L (10-37); BILIRUBIN,TOTAL 0.3 MG/DL (0.1-1.0); PHOSPHORUS 10.1 MG/DL (2.3-4.5)
[2021-09-06 15:00] VITALS: BP 90/47
--- NOTE | 2021-09-06 18:14 | NUR ---
Problems reprioritized. Patient report given, questions answered & plan of care reviewed with Eli COPELAND.
[2021-09-06 22:00] VITALS: BP 105/64
[2021-09-07 02:00] VITALS: BP 92/58
[2021-09-07] MEDS: SODIUM ZIRCONIUM CYCLOSILICATE 10 GM POWD.PACK PO SCH (05:16)
--- NOTE | 2021-09-07 06:30 | NUR ---
Patient in room U 3023. I have received report from Eli COPELAND and had the opportunity to ask questions and assume patient care. Patient sleeping in bed in no acute distress.
--- NOTE | 2021-09-07 06:31 | NUR ---
Received report from Eli. PT is resting in bed, no signs of distress. Addendum: 09/07/21 at 0647 by Eli Saez RN Problems reprioritized. Patient report given, questions answered & plan of care reviewed with sagar COPELAND.
--- NOTE | 2021-09-07 07:22 | NUR ---
patient refused am vitals
[2021-09-07] MEDS: atorvastatin 20mg tablet PO SCH (07:45)
[2021-09-07] MEDS: aspirin 81mg tab.chew PO SCH (07:45)
[2021-09-07] MEDS: K and/or MAG REPLACEMENT MC SCH ×2 (08:00→20:00)
--- NOTE | 2021-09-07 10:37 | NUR ---
Reassessment: PO intake has declined since last assessment, avg intake 42% of meals on renal diet not meeting needs. ONS has been d/c as pt was mostly refusing them, currently A&O x 1 and confused though able to feed self per documentation. If PO trends persist, pt may benefit from supplemental TF to meet est nutrient needs. Pt continues to receive HD, last treatment / w/ 255ml out per EMR. LBM /. Will continue to monitor Recommendations: 1. Consider liberalizing to regular diet if PO intake declines 2. No ONS, pt previously refusing them 3. Encourage PO intake and assist with meals given decreased mentation 4. Routine phos checks given HD, consider phos binder with meals per MD 5. Routine bowel care 6. Scaled wts with HD 7. IF PO and mentation do not improve, consider TF to meet nutritional needs Addendum: 09/07/21 at [address] Amended: Links added.
[2021-09-07 11:00] VITALS: BP 94/58
[2021-09-07 12:00] LABS: BASOPHILS # (AUTO) 0.1 X10'3 (0-0.2); EOSINOPHILS # (AUTO) 0.4 X10'3 (0-0.9); EOSINOPHILS % (AUTO) 4.4 % (0-6); HEMOGLOBIN 13.9 g/dl (14.0-17.9); LYMPHOCYTES # (AUTO) 1.4 X10'3 (1.1-4.8); LYMPHOCYTES % (AUTO) 16.9 % (21-51); MEAN CORPUSCULAR HGB CONC 33.1 g/dL (33.0-36.5); MEAN CORPUSCULAR VOLUME 90.6 FL (78-98); MEAN PLATELET VOLUME 9.3 FL (7.4-10.4); MONOCYTES # (AUTO) 0.8 X10'3 (0-0.9); MONOCYTES % (AUTO) 9.7 % (2-12); NEUTROPHILS # (AUTO) 5.7 X10'3 (1.8-7.7); PLATELET COUNT 205 X10'3 (140-440); RED BLOOD COUNT 4.64 X10'6 (4.70-6.10); WHITE BLOOD COUNT 8.4 X10'3 (4.5-11.0)
[2021-09-07 12:14] LABS: ALBUMIN 3.3 G/DL (3.4-5.0); BLOOD UREA NITROGEN 48 MG/DL (7-18); BUN/CREATININE RATIO 5.5 (5.4-32.0); CALCIUM 7.8 MG/DL (8.5-10.1); CREATININE 8.66 MG/DL (0.60-1.10); GLUCOSE 93 MG/DL (70-104); MAGNESIUM 2.2 MG/DL (1.5-2.4); PHOSPHORUS 7.5 MG/DL (2.3-4.5); TOTAL CARBON DIOXIDE 24.3 MMOL/L (24-32); eGFR 6 ML/MIN
--- NOTE | 2021-09-07 13:51 | NUR ---
IV Access PAGER ID: [phone] MESSAGE: Pt 3B - LaminMonty Pulled his IV out and is refusing new IV access. Ok for Pt not to have IV? Sugar KIMBROUGH RN Ext [phone] Addendum: 09/07/21 at 1359 by Sugar Perez RN Wrong doctor paged - Re-paged appropriate doctor. PAGER ID: [phone] MESSAGE: Robert 3023B Efrem KimbleMonty Pulled his IV out and is refusing new IV access. Ok for Pt not to have IV? Sugar KIMBROUGH RN Ext [phone]
--- NOTE | 2021-09-07 13:52 | NUR ---
Lost IV Access Pt pulled IV, refused new IV access. Dr Maxx espinosa. Addendum: 09/07/21 at [address] Antonio Espinosa
--- NOTE | 2021-09-07 14:37 | NUR ---
Ok per telephone conversation with Dr. Alvarez for patient not to have IV access
--- NOTE | 2021-09-07 17:56 | NUR ---
[place]rientee documentation: I have reviewed and agree with all interventions, assessments performed and documented by Sugar COPELAND . [place]ee Medication Administration: For this medication-pass time frame, all medication were reviewed, dispensed, administered and documented per hospital policy by Sugar COPELAND .
[2021-09-07 18:00] VITALS: BP 115/50
[2021-09-07 18:07] VITALS: BP 115/50
--- NOTE | 2021-09-07 18:19 | NUR ---
Report given to Eli
--- NOTE | 2021-09-07 18:28 | NUR ---
Problems reprioritized. Patient report given, questions answered & plan of care reviewed with
[2021-09-07 22:00] VITALS: BP 157/63
[2021-09-08 02:00] VITALS: BP 94/59
[2021-09-08] MEDS: SODIUM ZIRCONIUM CYCLOSILICATE 10 GM POWD.PACK PO SCH (05:30)
[2021-09-08] MEDS ORDERED: heparin 1,000 units/ml 10ml inj IV ONE (06:00)
[2021-09-08] MEDS ORDERED: heparin 1,000unit/ml 10ml vial 10 ML IV ONE (06:00)
[2021-09-08] MEDS ORDERED: albumin (human) 25% 100ml IV 100 ML IV PRN (06:00)
[2021-09-08] MEDS ORDERED: heparin 1,000 units/ml 10ml inj HE ONE ×2 (06:05)
--- NOTE | 2021-09-08 06:25 | NUR ---
Problems reprioritized. Patient report given, questions answered & plan of care reviewed with Shanita COPELAND.
--- NOTE | 2021-09-08 06:28 | NUR ---
Patient in room U 3023. I have received report from Eli COPELAND and had the opportunity to ask questions and assume patient care. Patient sleeping in bed in no acute distress. Benefiting from sitter in room.
[2021-09-08 06:31] LABS: BASOPHILS # (AUTO) 0.1 X10'3 (0-0.2); BASOPHILS % (AUTO) 1.3 % (0-1); EOSINOPHILS # (AUTO) 0.4 X10'3 (0-0.9); EOSINOPHILS % (AUTO) 4.6 % (0-6); HEMATOCRIT 39.7 % (42.0-52.0); HEMOGLOBIN 13.2 g/dl (14.0-17.9); LYMPHOCYTES # (AUTO) 2.2 X10'3 (1.1-4.8); LYMPHOCYTES % (AUTO) 22.9 % (21-51); MEAN CORPUSCULAR HEMOGLOBIN 29.8 PG (27.0-31.0); MEAN CORPUSCULAR HGB CONC 33.3 g/dL (33.0-36.5); MEAN CORPUSCULAR VOLUME 89.6 FL (78-98); MEAN PLATELET VOLUME 9.4 FL (7.4-10.4); MONOCYTES % (AUTO) 10.1 % (2-12); NEUTROPHILS # (AUTO) 5.8 X10'3 (1.8-7.7); NEUTROPHILS % (AUTO) 61.1 % (42-75); PLATELET COUNT 192 X10'3 (140-440); RED BLOOD COUNT 4.44 X10'6 (4.70-6.10); RED CELL DISTRIBUTION WIDTH 16.3 % (11.5-14.5); WHITE BLOOD COUNT 9.4 X10'3 (4.5-11.0)
--- NOTE | 2021-09-08 06:31 | NUR ---
Patient in room PCU 3023. I have received report from Eli and had the opportunity to ask questions and assume patient care.
[2021-09-08 06:39] LABS: ALBUMIN 3.2 G/DL (3.4-5.0); ANION GAP 15 (8-16); BLOOD UREA NITROGEN 61 MG/DL (7-18); BUN/CREATININE RATIO 5.9 (5.4-32.0); CALCIUM 7.5 MG/DL (8.5-10.1); CHLORIDE 99 MMOL/L (99-107); CREATININE 10.39 MG/DL (0.60-1.10); GLUCOSE 82 MG/DL (70-104); MAGNESIUM 2.1 MG/DL (1.5-2.4); PHOSPHORUS 8.4 MG/DL (2.3-4.5); POTASSIUM 4.4 MMOL/L (3.5-5.1); SODIUM 136 MMOL/L (135-145); TOTAL CARBON DIOXIDE 21.7 MMOL/L (24-32); eGFR 5 ML/MIN
--- NOTE | 2021-09-08 07:11 | NUR ---
Patient refused vitals this morning
--- NOTE | 2021-09-08 07:23 | NUR ---
Patient refused am vitals.
[2021-09-08] MEDS: K and/or MAG REPLACEMENT MC SCH ×2 (08:00→20:00)
[2021-09-08] MEDS: aspirin 81mg tab.chew PO SCH (08:44)
[2021-09-08] MEDS: atorvastatin 20mg tablet PO SCH (08:44)
[2021-09-08 08:54] LABS: POTASSIUM 4.6 MMOL/L (3.3-5.1)
[2021-09-08 11:00] VITALS: BP 109/64
--- NOTE | 2021-09-08 12:45 | NUR ---
PT refused daily weight Addendum: 09/08/21 at 1248 by Sugar Perez RN Amended: Links added.
[2021-09-08 15:00] VITALS: BP 98/54
[2021-09-08 15:41] LABS: ANION GAP 14 (8-16); CHLORIDE 100 MMOL/L (99-107); POTASSIUM 4.6 MMOL/L (3.5-5.1); SODIUM 138 MMOL/L (135-145)
--- NOTE | 2021-09-08 17:53 | NUR ---
[place]rientee documentation: I have reviewed and agree with all interventions, assessments performed and documented by Sugar COPELAND. [place]ee Medication Administration: For this medication-pass time frame, all medication were reviewed, dispensed, administered and documented per hospital policy by Sugar COPELAND.
--- NOTE | 2021-09-08 18:16 | NUR ---
Problems reprioritized. Patient report given, questions answered & plan of care reviewed with Margo RN. Patient resting in bed in no acute distress.
--- NOTE | 2021-09-08 18:22 | NUR ---
Problems reprioritized. Patient report given to October RN, questions answered & plan of care reviewed with .
[2021-09-08 18:30] VITALS: BP 116/64
[2021-09-08 22:00] VITALS: BP 121/60
[2021-09-09 06:00] VITALS: BP 102/64
[2021-09-09 06:21] LABS: BASOPHILS # (AUTO) 0.1 X10'3 (0-0.2); BASOPHILS % (AUTO) 0.9 % (0-1); EOSINOPHILS # (AUTO) 0.5 X10'3 (0-0.9); EOSINOPHILS % (AUTO) 4.5 % (0-6); HEMATOCRIT 38.7 % (42.0-52.0); HEMOGLOBIN 12.7 g/dl (14.0-17.9); LYMPHOCYTES # (AUTO) 2.1 X10'3 (1.1-4.8); LYMPHOCYTES % (AUTO) 19.7 % (21-51); MEAN CORPUSCULAR HGB CONC 32.9 g/dL (33.0-36.5); MEAN CORPUSCULAR VOLUME 91.1 FL (78-98); MEAN PLATELET VOLUME 9.7 FL (7.4-10.4); MONOCYTES % (AUTO) 9.5 % (2-12); NEUTROPHILS # (AUTO) 6.9 X10'3 (1.8-7.7); NEUTROPHILS % (AUTO) 65.4 % (42-75); PLATELET COUNT 178 X10'3 (140-440); RED BLOOD COUNT 4.25 X10'6 (4.70-6.10); RED CELL DISTRIBUTION WIDTH 16.2 % (11.5-14.5); WHITE BLOOD COUNT 10.5 X10'3 (4.5-11.0)
[2021-09-09 06:23] LABS: ALBUMIN 3.2 G/DL (3.4-5.0); ANION GAP 20 (8-16); BLOOD UREA NITROGEN 76 MG/DL (7-18); BUN/CREATININE RATIO 6.3 (5.4-32.0); CALCIUM 6.9 MG/DL (8.5-10.1); CHLORIDE 98 MMOL/L (99-107); CREATININE 12.15 MG/DL (0.60-1.10); GLUCOSE 84 MG/DL (70-104); PHOSPHORUS 8.9 MG/DL (2.3-4.5); POTASSIUM 4.6 MMOL/L (3.5-5.1); SODIUM 137 MMOL/L (135-145); TOTAL CARBON DIOXIDE 19.2 MMOL/L (24-32); eGFR 4 ML/MIN
[2021-09-09 07:05] LABS: MAGNESIUM 2.1 MG/DL (1.5-2.4)
[2021-09-09] MEDS ORDERED: heparin 1,000unit/ml 10ml vial 10 ML IV ONE (07:15)
[2021-09-09] MEDS ORDERED: albumin (human) 25% 100ml IV 100 ML IV PRN (07:15)
[2021-09-09] MEDS ORDERED: heparin 1,000 units/ml 10ml inj HE ONE ×2 (07:15)
[2021-09-09] MEDS ORDERED: heparin 1,000 units/ml 10ml inj IV ONE (07:15)
[2021-09-09] MEDS: K and/or MAG REPLACEMENT MC SCH ×2 (08:00→20:00)
[2021-09-09] MEDS: aspirin 81mg tab.chew PO SCH (08:42)
[2021-09-09] MEDS: SODIUM ZIRCONIUM CYCLOSILICATE 10 GM POWD.PACK PO SCH (08:42)
[2021-09-09] MEDS: atorvastatin 20mg tablet PO SCH (08:42)
[2021-09-09 11:00] VITALS: BP 101/58
[2021-09-09 15:00] VITALS: BP 123/60
[2021-09-09 18:00] VITALS: BP 121/60
[2021-09-09] MEDS: LORazepam 1 MG tablet PO PRN (20:07)
[2021-09-09 22:00] VITALS: BP 110/60
[2021-09-10 02:00] VITALS: BP 90/55
[2021-09-10] MEDS: SODIUM ZIRCONIUM CYCLOSILICATE 10 GM POWD.PACK PO SCH ×2 (05:33→08:01)
[2021-09-10 05:56] LABS: BASOPHILS # (AUTO) 0.1 X10'3 (0-0.2); BASOPHILS % (AUTO) 1.2 % (0-1); EOSINOPHILS # (AUTO) 0.4 X10'3 (0-0.9); EOSINOPHILS % (AUTO) 3.9 % (0-6); HEMATOCRIT 40.1 % (42.0-52.0); HEMOGLOBIN 13.2 g/dl (14.0-17.9); LYMPHOCYTES # (AUTO) 1.9 X10'3 (1.1-4.8); LYMPHOCYTES % (AUTO) 20.3 % (21-51); MEAN CORPUSCULAR HEMOGLOBIN 29.9 PG (27.0-31.0); MEAN CORPUSCULAR VOLUME 90.6 FL (78-98); MEAN PLATELET VOLUME 9.2 FL (7.4-10.4); MONOCYTES # (AUTO) 0.9 X10'3 (0-0.9); MONOCYTES % (AUTO) 9.7 % (2-12); NEUTROPHILS # (AUTO) 6.2 X10'3 (1.8-7.7); NEUTROPHILS % (AUTO) 64.9 % (42-75); PLATELET COUNT 178 X10'3 (140-440); RED BLOOD COUNT 4.43 X10'6 (4.70-6.10); RED CELL DISTRIBUTION WIDTH 15.9 % (11.5-14.5); WHITE BLOOD COUNT 9.5 X10'3 (4.5-11.0)
[2021-09-10 06:00] VITALS: BP 91/57
[2021-09-10 06:09] LABS: ALBUMIN 3.2 G/DL (3.4-5.0); ANION GAP 14 (8-16); BLOOD UREA NITROGEN 53 MG/DL (7-18); BUN/CREATININE RATIO 6.4 (5.4-32.0); CALCIUM 7.2 MG/DL (8.5-10.1); CHLORIDE 100 MMOL/L (99-107); CREATININE 8.27 MG/DL (0.60-1.10); GLUCOSE 86 MG/DL (70-104); MAGNESIUM 1.9 MG/DL (1.5-2.4); POTASSIUM 4.5 MMOL/L (3.5-5.1); SODIUM 137 MMOL/L (135-145); TOTAL CARBON DIOXIDE 22.6 MMOL/L (24-32); eGFR 6 ML/MIN
--- NOTE | 2021-09-10 06:30 | NUR ---
Problems reprioritized. Patient report given, questions answered & plan of care reviewed with Parmjit.
[2021-09-10] MEDS: K and/or MAG REPLACEMENT MC SCH ×2 (07:01→20:00)
[2021-09-10] MEDS: aspirin 81mg tab.chew PO SCH (08:02)
[2021-09-10] MEDS: atorvastatin 20mg tablet PO SCH (08:02)
[2021-09-10 11:00] VITALS: BP 92/60
--- NOTE | 2021-09-10 13:05 | NUR ---
Reassessment: Encephalopathy resolved per MD note. PO intake improving, mostly 75% avg renal meals though pt has refused some meals, meeting ~64% of estimated protein needs and ~67% of estimated energy needs. Previously, pt has mostly refused Nepro ONS. communications intern d/w pt food preferences. Pt stated they would be willing to try an Ensure Enlive to help meet kcal/protein needs and that he preferred cereal for breakfast and likes chicken and carrots. Dietary notified of food preferences. communications intern d/w RN pt could benefit from phos binder to help lower phos levels if MD agreeable. RN stated they would discuss w/ MD. Continues to receive HD, last treatment 09/09 w/ 1000ml out, w/ [id number] cumulative out per EMR. Pt w/ wt loss of -12.1 kg over 28 days though wt to fluctuate w/ HD. LBM /. Will continue to monitor. Recommendations: 1. Consider liberalizing to regular diet given poor PO intake 2. Ensure Enlive BIDLD, pending MD approval 3. Encourage PO intake 4. Routine phos checks given HD with phos binder with meals with MD approval 5. Routine bowel care 6. Scaled wts with HD Addendum: 09/10/21 at 1306 by Torrey Louise - [address] [employer]ef Net RD Amended: Links added. Addendum: 09/10/21 at [address] I have reviewed and agree with note by Fisher [employer]. HAILEY Krishnan
[2021-09-10 15:00] VITALS: BP 97/57
[2021-09-10] MEDS: lactose-reduced food (Ensure Enlive) - 237ml bottle PO SCH (17:30)
[2021-09-10 18:00] VITALS: BP 88/48
[2021-09-10 22:00] VITALS: BP 97/55
[2021-09-11 06:00] VITALS: BP 92/57
[2021-09-11] MEDS ORDERED: heparin 1,000 units/ml 10ml inj IV ONE (08:00)
[2021-09-11] MEDS ORDERED: heparin 1,000unit/ml 10ml vial 10 ML IV ONE (08:00)
[2021-09-11] MEDS: K and/or MAG REPLACEMENT MC SCH ×2 (08:00→19:54)
[2021-09-11] MEDS ORDERED: heparin 1,000 units/ml 10ml inj HE ONE ×2 (08:00)
[2021-09-11] MEDS ORDERED: albumin (human) 25% 100ml IV 100 ML IV PRN (08:00)
[2021-09-11 08:15] LABS: BASOPHILS # (AUTO) 0.1 X10'3 (0-0.2); EOSINOPHILS # (AUTO) 0.4 X10'3 (0-0.9); EOSINOPHILS % (AUTO) 3.8 % (0-6); HEMATOCRIT 38.7 % (42.0-52.0); HEMOGLOBIN 12.9 g/dl (14.0-17.9); LYMPHOCYTES % (AUTO) 19.4 % (21-51); MEAN CORPUSCULAR HEMOGLOBIN 29.7 PG (27.0-31.0); MEAN CORPUSCULAR HGB CONC 33.2 g/dL (33.0-36.5); MEAN CORPUSCULAR VOLUME 89.4 FL (78-98); MEAN PLATELET VOLUME 9.4 FL (7.4-10.4); MONOCYTES # (AUTO) 0.8 X10'3 (0-0.9); NEUTROPHILS % (AUTO) 67.8 % (42-75); PLATELET COUNT 181 X10'3 (140-440); RED BLOOD COUNT 4.33 X10'6 (4.70-6.10); RED CELL DISTRIBUTION WIDTH 15.8 % (11.5-14.5); WHITE BLOOD COUNT 10.3 X10'3 (4.5-11.0)
[2021-09-11] MEDS: aspirin 81mg tab.chew PO SCH (08:26)
[2021-09-11] MEDS: SODIUM ZIRCONIUM CYCLOSILICATE 10 GM POWD.PACK PO SCH (08:26)
[2021-09-11] MEDS: atorvastatin 20mg tablet PO SCH (08:26)
[2021-09-11 08:27] LABS: ALBUMIN 3.2 G/DL (3.4-5.0); ANION GAP 15 (8-16); BLOOD UREA NITROGEN 79 MG/DL (7-18); BUN/CREATININE RATIO 7.3 (5.4-32.0); CALCIUM 6.8 MG/DL (8.5-10.1); CHLORIDE 99 MMOL/L (99-107); CREATININE 10.83 MG/DL (0.60-1.10); GLUCOSE 83 MG/DL (70-104); PHOSPHORUS 8.8 MG/DL (2.3-4.5); POTASSIUM 4.9 MMOL/L (3.5-5.1); SODIUM 134 MMOL/L (135-145); eGFR 5 ML/MIN
[2021-09-11 11:00] VITALS: BP 106/58
[2021-09-11] MEDS: lactose-reduced food (Ensure Enlive) - 237ml bottle PO SCH ×2 (12:30→17:30)
[2021-09-11 15:00] VITALS: BP 104/58
[2021-09-11 18:00] VITALS: BP 115/62
[2021-09-11 22:00] VITALS: BP 105/72
[2021-09-12 02:00] VITALS: BP 129/73
[2021-09-12 06:00] VITALS: BP 126/68
[2021-09-12 07:02] LABS: BASOPHILS # (AUTO) 0.1 X10'3 (0-0.2); EOSINOPHILS # (AUTO) 0.4 X10'3 (0-0.9); HEMATOCRIT 39.2 % (42.0-52.0); HEMOGLOBIN 12.8 g/dl (14.0-17.9); LYMPHOCYTES # (AUTO) 1.5 X10'3 (1.1-4.8); LYMPHOCYTES % (AUTO) 16.6 % (21-51); MEAN CORPUSCULAR HEMOGLOBIN 29.4 PG (27.0-31.0); MEAN CORPUSCULAR HGB CONC 32.5 g/dL (33.0-36.5); MEAN CORPUSCULAR VOLUME 90.5 FL (78-98); MEAN PLATELET VOLUME 9.2 FL (7.4-10.4); MONOCYTES # (AUTO) 0.8 X10'3 (0-0.9); NEUTROPHILS # (AUTO) 6.2 X10'3 (1.8-7.7); NEUTROPHILS % (AUTO) 69.4 % (42-75); PLATELET COUNT 173 X10'3 (140-440); RED BLOOD COUNT 4.33 X10'6 (4.70-6.10); RED CELL DISTRIBUTION WIDTH 16.2 % (11.5-14.5)
[2021-09-12 07:29] LABS: ALBUMIN 3.2 G/DL (3.4-5.0); ANION GAP 15 (8-16); BLOOD UREA NITROGEN 44 MG/DL (7-18); BUN/CREATININE RATIO 6.2 (5.4-32.0); CALCIUM 7.1 MG/DL (8.5-10.1); CHLORIDE 102 MMOL/L (99-107); CREATININE 7.14 MG/DL (0.60-1.10); GLUCOSE 81 MG/DL (70-104); MAGNESIUM 1.8 MG/DL (1.5-2.4); PHOSPHORUS 6.2 MG/DL (2.3-4.5); POTASSIUM 4.2 MMOL/L (3.5-5.1); SODIUM 140 MMOL/L (135-145); TOTAL CARBON DIOXIDE 22.8 MMOL/L (24-32); eGFR 8 ML/MIN
[2021-09-12] MEDS: K and/or MAG REPLACEMENT MC SCH ×2 (08:00→19:40)
[2021-09-12] MEDS: aspirin 81mg tab.chew PO SCH (08:01)
[2021-09-12] MEDS: LORazepam 1 MG tablet PO PRN (08:01)
[2021-09-12] MEDS: atorvastatin 20mg tablet PO SCH (08:01)
[2021-09-12] MEDS: SODIUM ZIRCONIUM CYCLOSILICATE 10 GM POWD.PACK PO SCH (08:02)
[2021-09-12 11:00] VITALS: BP 103/56
[2021-09-12] MEDS: lactose-reduced food (Ensure Enlive) - 237ml bottle PO SCH ×2 (12:30→16:43)
[2021-09-12 15:00] VITALS: BP 100/56
[2021-09-12 18:00] VITALS: BP 94/56
[2021-09-12 22:00] VITALS: BP 103/63
--- NOTE | 2021-09-12 23:15 | NUR ---
patient vomited a watery chocolate like emesis. Pt has refused NG tube reinsertion. Will go go back to room to try reinsertion. Patient has attempted to get out bed several times and pulled out NG tube. extension service specialist in charge aware. Patient will be get a sitter. Awaiting for new room to be cleaned. All safety measures in place. will continue monitor Addendum: 09/13/21 at 0337 by Freda Saez RN Wrong documentation
[2021-09-13 02:00] VITALS: BP 100/58
[2021-09-13 06:00] VITALS: BP 106/75
[2021-09-13] MEDS ORDERED: albumin (human) 25% 100ml IV 100 ML IV PRN (08:00)
[2021-09-13] MEDS ORDERED: heparin 1,000 units/ml 10ml inj IV ONE (08:00)
[2021-09-13] MEDS: atorvastatin 20mg tablet PO SCH (08:00)
[2021-09-13] MEDS ORDERED: heparin 1,000unit/ml 10ml vial 10 ML IV ONE (08:00)
[2021-09-13] MEDS: K and/or MAG REPLACEMENT MC SCH ×2 (08:00→20:00)
[2021-09-13] MEDS ORDERED: heparin 1,000 units/ml 10ml inj HE ONE ×2 (08:00)
--- NOTE | 2021-09-13 08:28 | NUR ---
PAGER ID: [phone] MESSAGE: [id number]. AGITATED, NEEDS SOMETHING STAT PLS
[2021-09-13] MEDS: aspirin 81mg tab.chew PO SCH (08:30)
[2021-09-13] MEDS ORDERED: ziprasidone IM 20mg inj **IM only IM ONE (09:05)
--- NOTE | 2021-09-13 09:43 | NUR ---
Reassessment: Per physical assessment pt A/O x 4. PO intake continues to improve with mostly 75% PO intake of meals since last nutrition assessment (09/10). Pt now receiving an Ensure Enlive BIDLD and pt documented with 50% PO intake of ONS. Overall pt meeting estimated nutrient needs with adequate protein to support dialysis. Serum Phos remains elevated however down from previous day, still not receiving a Phos binder with meals. M 09/10. No nutrition intervention implemented at this time. Will continue to follow and make recommendations as appropriate. Recommendations: 1. Continue renal diet; Consider liberalizing to regular diet if PO intake declines 2. Ensure Enlive BIDLD 3. Encourage PO intake 4. Routine serum phos checks given HD and phos binder with meals with MD approval 5. Routine bowel care 6. Scaled wts with HD Addendum: 09/13/21 at [address] Amended: Links added.
[2021-09-13] MEDS: ziprasidone 20mg capsule PO SCH ×2 (10:20→20:31)
[2021-09-13 11:00] VITALS: BP 128/69
[2021-09-13] MEDS: lactose-reduced food (Ensure Enlive) - 237ml bottle PO SCH ×2 (12:55→18:00)
[2021-09-13 15:00] VITALS: BP 128/78
[2021-09-13 18:00] VITALS: BP 116/70
--- NOTE | 2021-09-13 18:00 | NUR ---
Orientee documentation: I have reviewed and agree with all interventions, assessments performed and documented by Gemma Bell RN.
--- NOTE | 2021-09-13 18:20 | NUR ---
Problems reprioritized. Patient report given, questions answered & plan of care reviewed with Nataly COPELAND.
[2021-09-13 22:00] VITALS: BP 118/60
[2021-09-14] MEDS: SODIUM ZIRCONIUM CYCLOSILICATE 10 GM POWD.PACK PO SCH (05:30)
[2021-09-14 06:00] VITALS: BP 85/43
[2021-09-14] MEDS: K and/or MAG REPLACEMENT MC SCH ×2 (08:00→19:52)
[2021-09-14] MEDS: ziprasidone 20mg capsule PO SCH ×3 (10:30→19:50)
[2021-09-14] MEDS: aspirin 81mg tab.chew PO SCH (10:31)
[2021-09-14] MEDS: atorvastatin 20mg tablet PO SCH (10:31)
[2021-09-14 11:00] VITALS: BP 105/51
[2021-09-14] MEDS: lactose-reduced food (Ensure Enlive) - 237ml bottle PO SCH ×2 (12:30→17:30)
[2021-09-14 15:00] VITALS: BP 103/74
[2021-09-14 18:00] VITALS: BP 111/57
--- NOTE | 2021-09-14 18:05 | NUR ---
Mr Kimble has been assessed as indicated. He continues to deny pain. He ambulates with a steady gait. He often chooses the incorrect word. But he does the correct actions. He declined Geodon. he accepted his other AM meds. He prefers substitutions over regularly the scheduled meals offered. He is presently resting quietly
--- NOTE | 2021-09-14 18:15 | NUR ---
Problems reprioritized. Patient report given, questions answered & plan of care reviewed with AMEENA.
[2021-09-14 22:00] VITALS: BP 107/53
[2021-09-15 02:00] VITALS: BP 113/60
[2021-09-15] MEDS: SODIUM ZIRCONIUM CYCLOSILICATE 10 GM POWD.PACK PO SCH (05:30)
[2021-09-15 06:00] VITALS: BP 106/65
[2021-09-15] MEDS: ziprasidone 20mg capsule PO SCH ×3 (08:00→20:06)
[2021-09-15] MEDS: K and/or MAG REPLACEMENT MC SCH (08:00)
[2021-09-15 11:00] VITALS: BP 141/62
--- NOTE | 2021-09-15 11:00 | NUR ---
This principal technical writer spoke with Carmita ([phone]), Mr Devine daughter. She states that she is aware of Mr Kimble's desire to stop HD. She states that he was no longer compliant with the process prior to this hospital admission. She states that he MAY have gone weekly but was by no means consistent. She understands that this choice has life threatening consequences. She feels that he is clear that this has life ending consequences. She states that she is willing to sign a DNR status for him. She will be here Wednesday09/20/21 with her family from [place]. She also requested that his diet be changed to permit him to eat whatever meals he desires. She also instructs staff to give her a call if he wants outside food. She is willing to have whatever he desires delivered to the hospital for him. She is also willing to be contacted if he is upset and noncompliant with staff.
[2021-09-15] MEDS: atorvastatin 20mg tablet PO SCH (12:14)
[2021-09-15] MEDS: aspirin 81mg tab.chew PO SCH (12:14)
[2021-09-15 15:00] VITALS: BP 110/84
[2021-09-15 18:00] VITALS: BP 116/98
--- NOTE | 2021-09-15 18:21 | NUR ---
Problems reprioritized. Patient report given, questions answered & plan of care reviewed with AMEENA.
--- NOTE | 2021-09-16 01:34 | NUR ---
Patient in room U 3017. I have received report from Filiberto Ingram and had the opportunity to ask questions and will assume patient care upon arrival to the floor. Addendum: 09/16/21 at 0135 by Barby Espana RN Amended: Links added.
--- NOTE | 2021-09-16 01:40 | NUR ---
pt in the room has tunnel cath right upper chest clamped, pt without iv made it clear when talking to him at 0150 that he wants to be a DNR that he is ready to go. alert male with belongings at the bedside.
[2021-09-16 02:00] VITALS: BP 171/84
--- NOTE | 2021-09-16 02:06 | NUR ---
pt noted a little confused knows who he is and what he wants, has expressive asphasia.
--- NOTE | 2021-09-16 02:13 | NUR ---
fall risk band on him and instructed to call staff for assistance.
[2021-09-16] MEDS: SODIUM ZIRCONIUM CYCLOSILICATE 10 GM POWD.PACK PO SCH (05:15)
--- NOTE | 2021-09-16 05:18 | NUR ---
pt would only drink 1/2 of the dose of his lokelma and refused to drink the rest of it despite teaching on why and the importance of taking it.
--- NOTE | 2021-09-16 06:40 | NUR ---
Problems reprioritized. Patient report given, questions answered & plan of care reviewed with MIN RAMOS. Addendum: 09/16/21 at 0640 by Barby Espana RN Amended: Links added.
[2021-09-16 07:00] VITALS: BP 122/95
--- NOTE | 2021-09-16 07:49 | NUR ---
Paged Dr. Castle PAGER ID: [phone] MESSAGE: Surgical Valeria RN [phone] RE: Monty Kimble. Can we have order written for DNR code status? It's been documented that patient and daughter wants DNR. We do not have active code status at this time
[2021-09-16] MEDS: ziprasidone 20mg capsule PO SCH ×2 (08:00→19:53)
[2021-09-16] MEDS: atorvastatin 20mg tablet PO SCH (08:00)
--- NOTE | 2021-09-16 09:40 | NUR ---
Dr. Castle was notified that patient has no active code status order. He said he will have to speak to the daughter today
[2021-09-16] MEDS: aspirin 81mg tab.chew PO SCH (10:13)
[2021-09-16 11:00] VITALS: BP 119/62
--- NOTE | 2021-09-16 17:29 | NUR ---
Unknown if patient urinated today, will say yes then no. Patient appears to be confused. Per BRENNA Sheridan and Jeff, they had not emptied urinal for this patient. Patient only drink a little today too. Patient was encouraged to drink oral fluid, he said to me "whatever!" Addendum: 09/16/21 at 1742 by Valeria Andrade RN Asked the Aide to bladder scan my patient
--- NOTE | 2021-09-16 17:51 | NUR ---
Patient refused bladder scan. Patient reported to BRENNA Sheridan that he went pee once
--- NOTE | 2021-09-16 18:35 | NUR ---
Patient in room EDD 355. I have received report from RUPA COPELAND and had the opportunity to ask questions and assume patient care.
[2021-09-16 19:00] VITALS: BP 120/78
--- NOTE | 2021-09-16 19:54 | NUR ---
PATIENT REFUSED TO TAKE HIS SCHEDULED GEODON EVEN AFTER EXPLAINING THE IMPORTANCE OF HIS MEDICATION.
[2021-09-17] MEDS: SODIUM ZIRCONIUM CYCLOSILICATE 10 GM POWD.PACK PO SCH (05:30)
--- NOTE | 2021-09-17 06:13 | NUR ---
Problems reprioritized. Patient report given, questions answered & plan of care reviewed with RUPA COPELAND.
--- NOTE | 2021-09-17 06:28 | NUR ---
Patient in room EDD 355. I have received report from Darlene COPELAND and had the opportunity to ask questions and assume patient care.
--- NOTE | 2021-09-17 06:36 | NUR ---
Patient in room EDD 355. I have received report from Pippa COPELAND and had the opportunity to ask questions and assume patient care.
[2021-09-17 07:17] VITALS: BP 136/60
[2021-09-17] MEDS: ziprasidone 20mg capsule PO SCH ×2 (08:00→20:00)
[2021-09-17] MEDS: aspirin 81mg tab.chew PO SCH (08:56)
[2021-09-17] MEDS: atorvastatin 20mg tablet PO SCH (08:56)
--- NOTE | 2021-09-17 09:00 | NUR ---
Spoke to patient's daughter Carmita today. I let her know patient has been refusing blood draw and certain medications. She told me that patient need to take his psyche meds so he wont be very agitated. I told her that patient has been refusing Geodon. She told me to tell patient that its "a vitamin" and to tell patient that Carmita wants him to take the vitamins. I went to patient's room told patient what he will be getting and mentioned that one fo the pill was "a vitamin" and that Carmita wants him to take it. I opened the aspirin, lipitor, and geodon placed them in a cup. Patient was asking me what the purple color capsule, I said to him "its the vitamin that Carmita wants you to take!" Patient removed it from the cup and took other pills. Patient refused to take Geodon (purple capsule)
--- NOTE | 2021-09-17 09:32 | NUR ---
Dr. Castle notified about patient refusal of medication and blood draw. I told him about patient's daughter call today and that she is open for hospice for this patient. Dr. Castle said we are going to wait for her to come on Wednesday. Per Dr. Castle we will keep the tunneled dialysis catheter in place for now until we talk to the daughter in person
[2021-09-17 09:59] LABS: ALBUMIN 2.9 G/DL (3.4-5.0); ANION GAP 29 (8-16); BLOOD UREA NITROGEN 135 MG/DL (7-18); CALCIUM 6.5 MG/DL (8.5-10.1); CHLORIDE 98 MMOL/L (99-107); CREATININE 16.79 MG/DL (0.60-1.10); GLUCOSE 108 MG/DL (70-104); SODIUM 141 MMOL/L (135-145); eGFR 3 ML/MIN
[2021-09-17 10:03] LABS: TOTAL CARBON DIOXIDE 14.5 MMOL/L (24-32)
--- NOTE | 2021-09-17 10:06 | NUR ---
DR. Castle notified of patient's critical CO2 14.5. No new orders.
[2021-09-17 12:45] VITALS: BP 144/58
--- NOTE | 2021-09-17 18:30 | NUR ---
Patient in room EDD 355. I have received report from RUPA COPELAND and had the opportunity to ask questions and assume patient care.
[2021-09-17 20:00] VITALS: BP 131/69
[2021-09-18] VITALS: BP 130/64
[2021-09-18] MEDS: SODIUM ZIRCONIUM CYCLOSILICATE 10 GM POWD.PACK PO SCH (05:30)
--- NOTE | 2021-09-18 06:28 | NUR ---
Problems reprioritized. Patient report given, questions answered & plan of care reviewed with UMESH COPELAND.
[2021-09-18] MEDS: ziprasidone 20mg capsule PO SCH ×2 (08:12→20:00)
[2021-09-18] MEDS: aspirin 81mg tab.chew PO SCH (08:13)
[2021-09-18] MEDS: atorvastatin 20mg tablet PO SCH (08:13)
--- NOTE | 2021-09-18 08:24 | NUR ---
patient refused to let us take his vitals Addendum: 09/18/21 at 0887 by Roger Saez RN Amended: Links added.
--- NOTE | 2021-09-18 08:53 | NUR ---
Reassessment: Pt A/O x 2 per physical assessment and PO intake has declined since last RD assessment (09/13). Pt now more consistently with 50% PO intake of meals though has refused four meals since 09/16 with PO intake up to ~75% at dinner 09/17. Patient's diet has appropriately been liberalized to regular given poor PO intake. Noted Ensure Enlive was discontinued 09/15 after pt not consuming ONS for two days. Per EMR pt has been refusing medications, blood draws, and HD. Per MD note pending discussion with patient's daughter regarding POC this weekend. LBM 09/17 per I&O. Will continue to follow and make recommendations as appropriate. Recommendations: 1. Continue regular diet given poor PO intake 2. Encourage PO intake 3. Bowel care PRN 4. Weekly scaled weights Addendum: 09/18/21 at [address] Amended: Links added.
[2021-09-18 11:00] VITALS: BP 132/65
--- NOTE | 2021-09-18 18:32 | NUR ---
Problems reprioritized. Patient report given, questions answered & plan of care reviewed with MIN DUQUE.
--- NOTE | 2021-09-18 18:35 | NUR ---
Patient in room EDD 355. I have received report from UMESH COPELAND and had the opportunity to ask questions and assume patient care.
[2021-09-18 20:00] VITALS: BP 160/76
[2021-09-19] VITALS: BP 140/62
[2021-09-19] MEDS: SODIUM ZIRCONIUM CYCLOSILICATE 10 GM POWD.PACK PO SCH (05:30)
--- NOTE | 2021-09-19 06:25 | NUR ---
Problems reprioritized. Patient report given, questions answered & plan of care reviewed with UMESH COPELAND.
--- NOTE | 2021-09-19 06:49 | NUR ---
Problems reprioritized. Patient report RECEIVED, questions answered & plan of care reviewed with MIN DUQUE.
[2021-09-19 07:00] VITALS: BP 124/81
[2021-09-19] MEDS: atorvastatin 20mg tablet PO SCH (08:04)
[2021-09-19] MEDS: ziprasidone 20mg capsule PO SCH ×2 (08:04→19:55)
[2021-09-19] MEDS: aspirin 81mg tab.chew PO SCH (08:04)
[2021-09-19 11:00] VITALS: BP 148/70
--- NOTE | 2021-09-19 15:57 | NUR ---
patient stable morning med administered as prescribed. refused morning care. friends visited. no distress/SOB noted at this time.
--- NOTE | 2021-09-19 18:36 | NUR ---
Problems reprioritized. Patient report given, questions answered & plan of care reviewed with MIN LINDQUIST
[2021-09-19 20:02] VITALS: BP 164/81
[2021-09-20] VITALS: BP 151/65
[2021-09-20] MEDS: SODIUM ZIRCONIUM CYCLOSILICATE 10 GM POWD.PACK PO SCH (05:30)
--- NOTE | 2021-09-20 06:32 | NUR ---
Problems reprioritized. Patient report received, questions answered & plan of care reviewed with MIN Ingram
[2021-09-20 07:00] VITALS: BP 158/60
[2021-09-20] MEDS: ziprasidone 20mg capsule PO SCH ×2 (08:00→19:23)
[2021-09-20] MEDS: atorvastatin 20mg tablet PO SCH (08:00)
[2021-09-20] MEDS: aspirin 81mg tab.chew PO SCH (08:30)
[2021-09-20] MEDS: HYDROcodone/acetaminophen 5mg/325mg tablet PO PRN (11:25)
[2021-09-20 12:00] VITALS: BP 168/84
--- NOTE | 2021-09-20 12:34 | NUR ---
Patient reported CP to Dr Castle, pain med administered as prescribed. patient refused care and refused to let Nurse take his V/S. will continue to monitor
[2021-09-20] MEDS ORDERED: acetaminophen 325mg tablet PO PRN (15:15)
--- NOTE | 2021-09-20 15:29 | NUR ---
Per social welfare administrator Nelly, patient's daughter requests comfort care. notified
--- NOTE | 2021-09-20 16:37 | NUR ---
PAGER ID: [phone] MESSAGE: [email or web address] Kimble#[phone]- Pt has no IV access. Refused IV. Could we get PO Ativan please. Thank you so much. Donna Duran
[2021-09-20 18:00] VITALS: BP 159/57
[2021-09-20] MEDS: sennosides/docusate sodium tablet PO SCH (19:24)
[2021-09-20] MEDS: morphine 10mg/0.5ml (conc. morphine) oral syringe PO PRN (23:32)
[2021-09-20] MEDS: LORazepam 2 mg/ml vial IV PRN (23:37)
[2021-09-20 23:47] VITALS: BP 146/66
[2021-09-21] MEDS: SODIUM ZIRCONIUM CYCLOSILICATE 10 GM POWD.PACK PO SCH (05:30)
--- NOTE | 2021-09-21 06:35 | NUR ---
Patient in room EDD 355. I have received report from MIN Ingram and had the opportunity to ask questions and assume patient care.
[2021-09-21 07:00] VITALS: BP 129/62
[2021-09-21] MEDS: aspirin 81mg tab.chew PO SCH (07:54)
[2021-09-21] MEDS: ziprasidone 20mg capsule PO SCH ×2 (07:54→19:55)
[2021-09-21] MEDS: atorvastatin 20mg tablet PO SCH (07:54)
[2021-09-21] MEDS: sennosides/docusate sodium tablet PO SCH ×2 (07:56→19:55)
[2021-09-21] MEDS: HYDROcodone/acetaminophen 5mg/325mg tablet PO PRN (10:48)
[2021-09-21 18:00] VITALS: BP 114/78
--- NOTE | 2021-09-21 18:27 | NUR ---
Problems reprioritized. Patient report given, questions answered & plan of care reviewed with MIN Ingram.
[2021-09-21 23:52] VITALS: BP 155/66
[2021-09-22] MEDS: SODIUM ZIRCONIUM CYCLOSILICATE 10 GM POWD.PACK PO SCH (05:30)
[2021-09-22] MEDS: ziprasidone 20mg capsule PO SCH ×2 (07:41→08:00)
[2021-09-22] MEDS: aspirin 81mg tab.chew PO SCH ×2 (07:41→08:07)
[2021-09-22] MEDS: atorvastatin 20mg tablet PO SCH ×2 (07:41→08:00)
[2021-09-22] MEDS: LORazepam 2 mg/ml vial IV PRN (07:49)
[2021-09-22] MEDS: sennosides/docusate sodium tablet PO SCH ×2 (08:00→19:24)
--- NOTE | 2021-09-22 08:08 | NUR ---
refused VS as of now, pt comfort care. Addendum: 09/22/21 at 0809 by Violette Saez RN Amended: Links added.
--- NOTE | 2021-09-22 09:09 | NUR ---
Reassessment; Noted pt has been made DNR w/ comfort care. Will continue to monitor. Recommendations: 1. Bowel care per comfort care measures Addendum: 09/22/21 at [address] Amended: Links added.
[2021-09-22] MEDS ORDERED: ondansetron/PF 4mg/2ml inj IV PRN (09:50)
[2021-09-22 11:50] VITALS: BP 124/53
[2021-09-22] MEDS: morphine 10mg/0.5ml (conc. morphine) oral syringe PO PRN (17:41)
[2021-09-22] MEDS ORDERED: ondansetron 4mg rapidly disintigrating tab PO PRN (17:55)
--- NOTE | 2021-09-22 18:14 | NUR ---
Problems reprioritized. Patient report given, questions answered & plan of care reviewed with MIN Ingram.
[2021-09-23] MEDS: LORazepam 1 MG tablet PO PRN ×4 (04:19→18:06)
[2021-09-23] MEDS: SODIUM ZIRCONIUM CYCLOSILICATE 10 GM POWD.PACK PO SCH (04:21)
--- NOTE | 2021-09-23 06:27 | NUR ---
Patient in room EDD 355. I have received report from JAZZ Ingram and had the opportunity to ask questions and assume patient care.
[2021-09-23] MEDS: atorvastatin 20mg tablet PO SCH (08:00)
[2021-09-23] MEDS: sennosides/docusate sodium tablet PO SCH ×2 (08:00→20:00)
[2021-09-23] MEDS: aspirin 81mg tab.chew PO SCH (08:22)
[2021-09-23] MEDS: morphine 10mg/0.5ml (conc. morphine) oral syringe PO PRN ×2 (09:15→18:02)
[2021-09-23 11:00] VITALS: BP 99/43
--- NOTE | 2021-09-23 18:49 | NUR ---
Problems reprioritized. Patient report given, questions answered & plan of care reviewed with MIN Ashton.
--- NOTE | 2021-09-23 19:45 | NUR ---
Patient refused vital signs and all oral meds.
[2021-09-24] MEDS: SODIUM ZIRCONIUM CYCLOSILICATE 10 GM POWD.PACK PO SCH (05:30)
--- NOTE | 2021-09-24 06:11 | NUR ---
Problems reprioritized. Patient report given, questions answered & plan of care reviewed with MIN Hamilton.
--- NOTE | 2021-09-24 06:25 | NUR ---
RECEIVED REPORT FROM MIN CORADO. COMPLETED HOURLY ROUNDING AND DISCOVERED PATIENT HAD PASSED. POST MORTUM CARE COMPLETED. NOC SHIFT HOSPITALIST NOTIFIED.
--- NOTE | 2021-09-24 07:00 | NUR ---
DAUGHTER (DAVID) NOTIFIED.
--- NOTE | 2021-09-24 07:06 | NUR ---
RN IS TO DOCUMENT YES TO ALL APPLICABLE AREAS Pronouncement of : 1. Time Physician Notified: [id number] 2. Date of : 09/24/21 3. Time of : 624 4. DNR/Withdraw life support documented: Y 5. Monitor strip has been placed on chart: Y 6. Assessment process is of one-minute duration and includes following criteria: a) Patient is unresponsive to all stimuli: Y b) Pupils fixed and non-reactive: Y c) Auscultation of precordium reveals absence of heart tones: Y d) Auscultation of lungs reveals absence of breath sounds: Y e) Absence of blood pressure / all vital signs: Y f) QRS complexes are not present on monitor / EKG strip: Y g) Pacer spikes without capture: N/A 4. Comments:
--- NOTE | 2021-09-24 09:00 | NUR ---
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
--- NOTE | 2021-09-24 11:07 | NUR ---
[facility] staff picked patient up. Belongings left at nurses station for family to pickle processor at a later time.
--- NOTE | 2021-09-24 17:47 | NUR ---
PAGER ID: [phone] MESSAGE: [phone], M: daughter is here waiting to have a medical leave signed for being here for her father. nursing sup says only the dr can sign this. thanks! maria luisa [phone]
== END 2021-09-24 11:03 | DRG 61 ==
LOC: PCU 3S 15:00 → SUR 3N 09-16 01:40
PROVIDERS: ADMIT Internal Medicine; ATTEND Family Medicine
PROC: B3251ZZ Computerized Tomography (CT Scan) of Bilateral Common Carotid Arteries using Low Osmolar Contrast (ICD-10-PCS; 2021-08-13)
PROC: B32G1ZZ Computerized Tomography (CT Scan) of Bilateral Vertebral Arteries using Low Osmolar Contrast (ICD-10-PCS; 2021-08-13)
PROC: B32R1ZZ Computerized Tomography (CT Scan) of Intracranial Arteries using Low Osmolar Contrast (ICD-10-PCS; 2021-08-13)
PROC: B3281ZZ Computerized Tomography (CT Scan) of Bilateral Internal Carotid Arteries using Low Osmolar Contrast (ICD-10-PCS; 2021-08-13)
PROC: 5A1D70Z Performance of Urinary Filtration, Intermittent, Less than 6 Hours Per Day (ICD-10-PCS; 2021-08-13)
PROC: 5A1D70Z Performance of Urinary Filtration, Intermittent, Less than 6 Hours Per Day (ICD-10-PCS; 2021-08-15)
PROC: 5A1D70Z Performance of Urinary Filtration, Intermittent, Less than 6 Hours Per Day (ICD-10-PCS; 2021-08-18)
PROC: 5A1D70Z Performance of Urinary Filtration, Intermittent, Less than 6 Hours Per Day (ICD-10-PCS; 2021-08-20)
PROC: 5A1D70Z Performance of Urinary Filtration, Intermittent, Less than 6 Hours Per Day (ICD-10-PCS; 2021-08-22)
PROC: 3E03317 Introduction of Other Thrombolytic into Peripheral Vein, Percutaneous Approach (ICD-10-PCS; principal; 2021-08-25)
PROC: 5A1D70Z Performance of Urinary Filtration, Intermittent, Less than 6 Hours Per Day (ICD-10-PCS; 2021-08-25)
PROC: 5A1D70Z Performance of Urinary Filtration, Intermittent, Less than 6 Hours Per Day (ICD-10-PCS; 2021-08-27)
PROC: 5A1D70Z Performance of Urinary Filtration, Intermittent, Less than 6 Hours Per Day (ICD-10-PCS; 2021-08-29)
PROC: 5A1D70Z Performance of Urinary Filtration, Intermittent, Less than 6 Hours Per Day (ICD-10-PCS; 2021-09-02)
PROC: 0JPT3XZ Removal of Tunneled Vascular Access Device from Trunk Subcutaneous Tissue and Fascia, Percutaneous Approach (ICD-10-PCS; 2021-09-03)
PROC: 0JH63XZ Insertion of Tunneled Vascular Access Device into Chest Subcutaneous Tissue and Fascia, Percutaneous Approach (ICD-10-PCS; 2021-09-03)
PROC: 02HV33Z Insertion of Infusion Device into Superior Vena Cava, Percutaneous Approach (ICD-10-PCS; 2021-09-03)
PROC: B5181ZA Fluoroscopy of Superior Vena Cava using Low Osmolar Contrast, Guidance (ICD-10-PCS; 2021-09-03)
PROC: 5A1D70Z Performance of Urinary Filtration, Intermittent, Less than 6 Hours Per Day (ICD-10-PCS; 2021-09-04)
PROC: 5A1D70Z Performance of Urinary Filtration, Intermittent, Less than 6 Hours Per Day (ICD-10-PCS; 2021-09-06)
PROC: 5A1D70Z Performance of Urinary Filtration, Intermittent, Less than 6 Hours Per Day (ICD-10-PCS; 2021-09-09)
PROC: 5A1D70Z Performance of Urinary Filtration, Intermittent, Less than 6 Hours Per Day (ICD-10-PCS; 2021-09-11)
DX: I63.512 Cerebral infarction due to unspecified occlusion or stenosis of left middle cerebral artery (principal); G93.41 Metabolic encephalopathy; N18.6 End stage renal disease; I12.0 Hypertensive chronic kidney disease with stage 5 chronic kidney disease or end stage renal disease; E87.2 Acidosis; I82.C11 Acute embolism and thrombosis of right internal jugular vein; Z20.822 Contact with and (suspected) exposure to COVID-19; Z66 Do not resuscitate; E87.5 Hyperkalemia; R29.706 NIHSS score 6; Z60.2 Problems related to living alone; R45.87 Impulsiveness; D72.829 Elevated white blood cell count, unspecified; R47.01 Aphasia; D64.9 Anemia, unspecified; I25.10 Atherosclerotic heart disease of native coronary artery without angina pectoris; Z51.5 Encounter for palliative care; Z99.2 Dependence on renal dialysis; Z79.899 Other long term (current) drug therapy; Z79.82 Long term (current) use of aspirin
CPT/HCPCS: 36415; 36581; 70450; 70496; 70498; 70551; 71045; 80048; 80053; 80061; 80069; 80074; 80202; 82140; 82948; 83036; 83605; 83735; 84100; 84132; 85007; 85008; 85025; 87040; 87081; 87635; 92507; 92508; 92616; 93005; 93306; 97116; 97161; 97530; A9270; C1750; C1769; G0257; G0378; J0713; J1644; J2060; J2997; J3370; J3486; J3490; J7070; Q9967